=== PATIENT | male | born 1940 | race Caucasian/White ===

== ENCOUNTER 2017-06-23 18:01 | Inpatient (IN) | payer MEDICARE, OTHER ==
[2017-06-23] MEDS ORDERED: methylPREDNISolone Sodium Succinate 125 MG/2 ML SDV IVPUSH ONE (18:08)
[2017-06-23] MEDS ORDERED: Albuterol/Ipratropium 3.0-0.5 MG/3 ML Neb Soln NEB ONE (18:09)
[2017-06-23] MEDS ORDERED: Docusate Sodium 100 MG Cap PO PRN (19:24)
[2017-06-23] MEDS ORDERED: Albuterol/Ipratropium 3.0-0.5 MG/3 ML Neb Soln INH PRN (19:24)
--- NOTE | 2017-06-23 19:30 | EDM.PDOC ---
ED HPI GENERAL MEDICAL PROBLEM - General Chief Complaint: Respiratory Problem Stated Complaint: SOB Time Seen by Provider: 06/23/17 18:01 Source of Information: Reports: Patient, Family History Limitations: Reports: Respiratory Distress - History of Present Illness INITIAL COMMENTS - FREE TEXT/NARRATIVE: 77 y.o.w.m with copd, on 2 liters home O2, came with his for worsening of SOB and fllu like symptoms. Pt is able to talk 4 wars sentences, no F/C no N/V. Pt has chronic low back pain or which he is scheduled for surgery next week. BP 97/41 Pulse ox 92% on 2 liters O2 Temp 36.6 pulse 109 RR RR 18 Onset Date: 06/09/17 Onset Time: 07:00 Duration: Day(s):, Getting Worse, Intermittent Location: Reports: Chest Severity: Moderate Improves with: Reports: Medication Worsens with: Reports: Movement Context: Reports: Other (COPD endstage) Associated Symptoms: Reports: Shortness of Breath Lower Back Pain Score (Numeric/FACES): 5 - Related Data Allergies Allergy/AdvReac Type Severity Reaction Status Date / Time Penicillins Allergy Rash Verified 06/23/17 19:21 Home Meds: Home Meds Albuterol/Ipratropium [DuoNeb 3.0-0.5 MG/3 ML] 3 ml INH QID 03/25/16 [History] Albuterol/Ipratropium [DuoNeb 3.0-0.5 MG/3 ML] 3 ml INH QIDRT neb 03/27/16 [Rx] Losartan [Cozaar] 100 mg PO DAILY tablet 03/27/16 [Rx] Nicotine [Habitrol] 21 mg TRDERM Q24H patch 03/27/16 [Rx] Simvastatin [Zocor] 10 mg PO DAILY tablet 03/27/16 [Rx] Hydrocodone/Acetaminophen [Hydrocodon-Acetaminophen 5-325] 1 tab PO BID [History] traZODone HCl [Trazodone HCl] 50 mg PO BEDTIME 06/23/17 [History] Ibuprofen [Advil] 400 mg PO BID 06/24/17 [History] Past Medical History HEENT History: Reports: Other (See Below) Other HEENT History: wears glasses Cardiovascular History: Reports: High Cholesterol, Hypertension Gastrointestinal History: Reports: GERD Musculoskeletal History: Reports: Osteoarthritis, Other (See Below) Other Musculoskeletal History: broke 2 vertebrae in neck 1988; fall muscle tear and strain left leg Other Neuro History: hx of ataxia Hematologic History: Reports: Anemia - Infectious Disease History Infectious Disease History: Reports: Chicken Pox, Measles, Mumps, Rheumatic Fever, Rubella - Past Surgical History GI Surgical History: Reports: Colonoscopy, EGD, Hernia, Inguinal Social & Family History - Family History Family Medical History: Noncontributory - Tobacco Use Smoking Status *Q: Current Every Day Smoker Years of Tobacco use: 58 Packs/Tins Daily: 0.5 - Caffeine Use Caffeine Use: Reports: None - Alcohol Use Days Per Week of Alcohol Use: 7 Number of Drinks Per Day: 2 Total Drinks Per Week: 14 - Recreational Drug Use Recreational Drug Use: No ED ROS GENERAL - Review of Systems Review Of Systems: See Below Constitutional: Reports: No Symptoms HEENT: Reports: No Symptoms Respiratory: Reports: No Symptoms Cardiovascular: Reports: No Symptoms Endocrine: Reports: No Symptoms GI/Abdominal: Reports: No Symptoms : Reports: No Symptoms Musculoskeletal: Reports: No Symptoms Skin: Reports: No Symptoms Neurological: Reports: No Symptoms Psychiatric: Reports: No Symptoms Hematologic/Lymphatic: Reports: No Symptoms Immunologic: Reports: No Symptoms ED EXAM, GENERAL - Physical Exam Exam: See Below Exam Limited By: Respiratory Distress General Appearance: Alert, Moderate Distress, Cachetic Eye Exam: Bilateral Eye: Normal Inspection Ears: Normal External Exam Ear Exam: Bilateral Ear: Auricle Normal Nose: Normal Inspection, Normal Mucosa Throat/Mouth: Normal Inspection, Normal Lips Head: Atraumatic, Normocephalic Neck: Normal Inspection, Supple, Non-Tender Respiratory/Chest: Respiratory Distress, Decreased Breath Sounds, Wheezing, Prolonged Expiration Cardiovascular: Normal Peripheral Pulses, Regular Rate, Rhythm, No Edema Peripheral Pulses: 1+: Carotid (R) GI/Abdominal: Normal Bowel Sounds, Soft, Non-Tender (Male) Exam: Deferred Rectal (Males) Exam: Deferred Back Exam: Normal Inspection, Full Range of Motion Extremities: Normal Inspection, Normal Range of Motion, Non-Tender, No Pedal Edema Neurological: Alert, Oriented, CN II-XII Intact, Normal Cognition, Normal Gait Psychiatric: Normal Affect, Normal Mood Skin Exam: Warm, Dry, Intact, Normal Color, No Rash Lymphatic: No Adenopathy Course - Vital Signs Text/Narrative:: 77 y.o.w.m with copd, smoker-on 2 liters home O2, came with his for worsening of SOB and fllu like symptoms. Pt is able to talk 4 wars sentences, no F/C no N/V. Pt has chronic low back pain or which he is scheduled for surgery next week. BP 97/41 Pulse ox 92% on 2 liters O2 Temp 36.6 pulse 109 RR RR 18 PE: cachectic 77 y.o.w.m in resp distress Imaging: Severe COPD, no acute infiltrate. Labs, WBC 8.3 HCG/HCT nl GFT 58 Troponin 0.017 Impression: COPD exacerbation Tx: Duoneb, Solu medrol, Reexam: Improved Consultation: Dr. Beal: accepted the pt for admission to [facility] no tele. Plan: admit to [facility] Last Recorded V/S: Last Vital Signs Temp 36.4 C 06/24/17 07:59 Pulse 95 06/24/17 07:59 Resp 18 06/24/17 07:59 BP 107/56 L 06/24/17 07:59 Pulse Ox 93 L 06/24/17 07:59 - Orders/Labs/Meds Orders: Active Orders 24 hr Category Date Time Status Patient Status [ADT] Routine ADT 06/23/17 19:25 Active Oxygen Therapy [RC] PRN Care 06/23/17 19:25 Active Up With Assistance [RC] ASDIRECTED Care 06/23/17 19:24 Active Vital Signs [RC] Q4H Care 06/23/17 19:25 Active Chest 1V Frontal [CR] Stat Exams 06/23/17 18:08 Taken Albuterol/Ipratropium [DuoNeb 3.0-0.5 MG/3 ML] Med 06/23/17 19:24 Active 3 ml INH ONETIME PRN Docusate Sodium [Colace] Med 06/23/17 19:24 Active 100 mg PO BID PRN Resuscitation Status Routine Resus Stat 06/23/17 19:24 Ordered Medication Orders Hydrocodone Bitart/Acetaminophen ([place] 325-5 Mg) 1 tab PO BID COUNTS INCLUDE 234 BEDS AT THE [facility] Last Admin: 06/24/17 08:13 Dose: 1 tab Admin: 06/23/17 22:47 Dose: 1 tab Albuterol (Proventil Neb Soln) 2.5 mg NEB Q2H PRN PRN Reason: Dyspnea Last Admin: 06/24/17 10:43 Dose: 2.5 mg Admin: 06/24/17 04:19 Dose: 2.5 mg Albuterol/Ipratropium (Duoneb 3.0-0.5 Mg/3 Ml) 3 ml INH ONETIME PRN PRN Reason: Shortness Of Breath/wheezing Albuterol/Ipratropium (Duoneb 3.0-0.5 Mg/3 Ml) 3 ml INH QIDRT COUNTS INCLUDE 234 BEDS AT THE [facility] Last Admin: 06/24/17 07:30 Dose: Admin: 06/23/17 22:46 Dose: 3 ml Docusate Sodium (Colace) 100 mg PO BID PRN PRN Reason: Constipation Azithromycin 500 mg/ Sodium (Chloride) 250 mls @ 250 mls/hr IV Q24H COUNTS INCLUDE 234 BEDS AT THE [facility] Last Admin: 06/24/17 09:14 Dose: 250 mls/hr Losartan Potassium (Cozaar) 100 mg PO DAILY COUNTS INCLUDE 234 BEDS AT THE [facility] Methylprednisolone Sodium Succinate (Solu-Medrol) 125 mg IVPUSH Q8H COUNTS INCLUDE 234 BEDS AT THE [facility] Last Admin: 06/24/17 09:09 Dose: 125 mg Nicotine (Habitrol) 21 mg TRDERM Q24H COUNTS INCLUDE 234 BEDS AT THE [facility] Simvastatin (Zocor) 10 mg PO DAILY COUNTS INCLUDE 234 BEDS AT THE [facility] Sodium Chloride (Saline Flush) 10 ml FLUSH ASDIRECTED PRN PRN Reason: Keep Vein Open Trazodone HCl (Trazodone) 50 mg PO BEDTIME COUNTS INCLUDE 234 BEDS AT THE [facility] Last Admin: 06/23/17 22:47 Dose: 50 mg Labs: Laboratory Tests 06/23/17 06/23/17 06/23/17 Range/Units 18:49 18:49 18:49 WBC 11.3 (4.5-12.0) X10-3/uL RBC 3.72 L (4.30-5.75) x10(6)uL Hgb 11.7 D (11.5-15.5) g/dL Hct 34.4 (30.0-51.3) % MCV 92.5 (80-96) fL MCH 31.4 (27.7-33.6) pg MCHC 33.9 (32.2-35.4) g/dL RDW 15.4 (11.5-15.5) % Plt Count 281 (125-369) X10(3)uL MPV 7.0 L (7.4-10.4) fL Add Manual Diff Yes Neutrophils % (Manual) 80 (46-82) % Band Neutrophils % 2 (0-6) % Lymphocytes % (Manual) 13 (13-37) % Monocytes % (Manual) 4 (4-12) % Eosinophils % (Manual) 1 (0-5) % PT 10.3 (8.7-11.1) INR 1.02 (0.89-1.13) Sodium 139 (135-145) mmol/L Potassium 4.0 (3.5-5.3) mmol/L Chloride 100 (100-110) mmol/L Carbon Dioxide 31 (21-32) mmol/L BUN 24 H (7-18) mg/dL Creatinine 1.2 (0.70-1.30) mg/dL Est Cr Clr Drug Dosing TNP Estimated GFR (MDRD) 59 L (>60) BUN/Creatinine Ratio 20.0 (9-20) Glucose 148 H (80-116) mg/dL Calcium 9.9 (8.6-10.2) mg/dL Troponin I (<0.017-0.056) ng/mL 06/23/17 Range/Units 18:49 WBC (4.5-12.0) X10-3/uL RBC (4.30-5.75) x10(6)uL Hgb (11.5-15.5) g/dL Hct (30.0-51.3) % MCV (80-96) fL MCH (27.7-33.6) pg MCHC (32.2-35.4) g/dL RDW (11.5-15.5) % Plt Count (125-369) X10(3)uL MPV (7.4-10.4) fL Add Manual Diff Neutrophils % (Manual) (46-82) % Band Neutrophils % (0-6) % Lymphocytes % (Manual) (13-37) % Monocytes % (Manual) (4-12) % Eosinophils % (Manual) (0-5) % PT (8.7-11.1) INR (0.89-1.13) Sodium (135-145) mmol/L Potassium (3.5-5.3) mmol/L Chloride (100-110) mmol/L Carbon Dioxide (21-32) mmol/L BUN (7-18) mg/dL Creatinine (0.70-1.30) mg/dL Est Cr Clr Drug Dosing Estimated GFR (MDRD) (>60) BUN/Creatinine Ratio (9-20) Glucose (80-116) mg/dL Calcium (8.6-10.2) mg/dL Troponin I < 0.017 L (<0.017-0.056) ng/mL Meds: Medications Generic Name Dose Route Start Last Admin Trade Name Freq PRN Reason Stop Dose Admin Hydrocodone Bitart/Acetaminophen 1 tab 06/23/17 22:45 06/24/17 08:13 [place] 325-5 Mg PO 1 tab BID ANDREI Administration Albuterol 2.5 mg 06/23/17 22:22 06/24/17 10:43 Proventil Neb Soln NEB 2.5 mg Q2H PRN Administration Dyspnea Albuterol/Ipratropium 3 ml 06/23/17 19:24 Duoneb 3.0-0.5 Mg/3 Ml INH ONETIME PRN Shortness Of Breath/wheezing Albuterol/Ipratropium 3 ml 06/23/17 22:45 06/24/17 07:30 Duoneb 3.0-0.5 Mg/3 Ml INH Not Given QIDRT ANDREI Docusate Sodium 100 mg 06/23/17 19:24 Colace PO BID PRN Constipation Azithromycin 500 mg/ Sodium 250 mls @ 250 mls/hr 06/24/17 09:00 06/24/17 09: 14 Chloride IV 250 mls/hr Q24H ANDREI Administration Losartan Potassium 100 mg 06/24/17 09:00 Cozaar PO DAILY ANDREI Methylprednisolone Sodium Succinate 125 mg 06/24/17 09:00 06/24/17 09:09 Solu-Medrol IVPUSH 125 mg Q8H ANDREI Administration Nicotine 21 mg 06/24/17 12:00 Habitrol TRDERM Q24H ANDREI Simvastatin 10 mg 06/24/17 09:00 Zocor PO DAILY ANDREI Sodium Chloride 10 ml 06/24/17 10:30 Saline Flush FLUSH ASDIRECTED PRN Keep Vein Open Trazodone HCl 50 mg 06/23/17 22:45 06/23/17 22:47 Trazodone PO 50 mg BEDTIME ANDREI Administration Discontinued Medications Generic Name Dose Route Start Last Admin Trade Name Freq PRN Reason Stop Dose Admin Hydrocodone Bitart/Acetaminophen 1 tab 06/24/17 09:00 [place] 325-5 Mg PO BID ANDREI Albuterol/Ipratropium 3 ml 06/23/17 18:09 06/23/17 18:23 Duoneb 3.0-0.5 Mg/3 Ml NEB 06/23/17 18:10 3 ml ONETIME ONE Administration Albuterol/Ipratropium 3 ml 06/24/17 09:00 Duoneb 3.0-0.5 Mg/3 Ml INH QID ANDREI Methylprednisolone Sodium Succinate 125 mg 06/23/17 18:08 06/23/17 18:23 Solu-Medrol IVPUSH 06/23/17 18:09 125 mg ONETIME ONE Administration Nicotine 21 mg 06/23/17 22:30 Habitrol TRDERM Q24H ANDREI Trazodone HCl 50 mg 06/24/17 21:00 Trazodone PO BEDTIME ANDREI Departure - Departure Time of Disposition: 20:00 Disposition: Refer to Observation Condition: Fair Clinical Impression: COPD with exacerbation - Discharge Information - My Orders Last 24 Hours: My Active Orders 06/23/17 18:08 Chest 1V Frontal [CR] Stat 06/23/17 19:24 Up With Assistance [RC] ASDIRECTED Albuterol/Ipratropium [DuoNeb 3.0-0.5 MG/3 ML] 3 ml INH ONETIME PRN Docusate Sodium [Colace] 100 mg PO BID PRN Resuscitation Status Routine 06/23/17 19:25 Patient Status [ADT] Routine Oxygen Therapy [RC] PRN Vital Signs [RC] Q4H - Assessment/Plan Last 24 Hours: My Active Orders 06/23/17 18:08 Chest 1V Frontal [CR] Stat 06/23/17 19:24 Up With Assistance [RC] ASDIRECTED Albuterol/Ipratropium [DuoNeb 3.0-0.5 MG/3 ML] 3 ml INH ONETIME PRN Docusate Sodium [Colace] 100 mg PO BID PRN Resuscitation Status Routine 06/23/17 19:25 Patient Status [ADT] Routine Oxygen Therapy [RC] PRN Vital Signs [RC] Q4H
[2017-06-23] MEDS ORDERED: Nicotine 21 MG/24 Hr Patch TRDERM SCH (22:30)
[2017-06-23] MEDS: Albuterol/Ipratropium 3.0-0.5 MG/3 ML Neb Soln INH SCH (22:46)
[2017-06-23] MEDS: Acetaminophen/HYDROcodone 325-5 MG Tab PO SCH (22:47)
[2017-06-23] MEDS: traZODone 50 MG Tab PO SCH (22:47)
[2017-06-24] MEDS: Albuterol 0.083% 2.5 MG/3 ML Neb Soln NEB PRN ×3 (04:19→14:47)
[2017-06-24] MEDS: Albuterol/Ipratropium 3.0-0.5 MG/3 ML Neb Soln INH SCH ×4 (07:30→20:15)
[2017-06-24] MEDS: Acetaminophen/HYDROcodone 325-5 MG Tab PO SCH ×2 (08:13→16:38)
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
[2017-06-24] MEDS ORDERED: Acetaminophen/HYDROcodone 325-5 MG Tab PO SCH (09:00)
[2017-06-24] MEDS ORDERED: Albuterol/Ipratropium 3.0-0.5 MG/3 ML Neb Soln INH SCH (09:00)
[2017-06-24] MEDS: methylPREDNISolone Sodium Succinate 125 MG/2 ML SDV IVPUSH SCH ×2 (09:09→16:40)
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
[2017-06-24] MEDS ORDERED: Iopamidol 755 Mg/ML 75 ML Bottle IV ONE (11:55)
[2017-06-24] MEDS ORDERED: Nicotine 21 MG/24 Hr Patch *PTOM TRDERM SCH (12:00)
[2017-06-24] MEDS: Losartan 100 MG Tab PO SCH (13:42)
[2017-06-24] MEDS: Simvastatin 10 MG Tab PO SCH (13:43)
--- NOTE | 2017-06-24 13:45 | CT ---
INDICATION: COPD. CT CHEST WITH CONTRAST: Spiral 2.5 mm axial sections were obtained through the chest with 75 mL Isovue 370 at 2 mL/second, with sagittal and coronal reconstructions, 06/24/2017. Comparison chest x-ray was noted. Total exam DLP = 166.48 mGy-cm. A definite active infiltrate or effusion was not identified. There are a few areas of subpleural density, likely representing fibrotic changes. The most prominent of these, however, was in the left upper lobe on axial images #22 through #29. Again, this most likely represents fibrotic change; however, a small area of infection with even an abscess formation cannot be entirely excluded with this appearance. Followup study may be warranted, therefore, depending upon clinical correlation. Central lobular emphysematous changes are likely. No definite mass lesions were seen in the lungs or pleural spaces. The heart appears enlarged with coronary artery calcifications. The aorta is calcified. Brachiocephalic vessels were also calcified. Mediastinal lymphadenopathy is mild and nonspecific. No mediastinal masses were identified. No pericardial effusion was seen. There appears to be postsurgical change at the liver - right kidney. A simple appearing cyst is noted off the mid pole posterolateral cortex - almost entirely exophytic - of the left kidney. It measured approximately 27 mm. The common bile duct did not appear grossly enlarged. The pancreatic duct was slightly prominent. IMPRESSION: 1. Probable emphysematous changes with some minimal scarring. Followup CT of the chest is recommended in 3-6 months to confirm stability of the changes in the lungs, likely fibrotic in nature. 2. ASHD/ASD. 3. Simple appearing left renal cyst. MTDD
[2017-06-24] MEDS: Sodium Chloride 0.9% 10 ML Syringe FLUSH PRN ×2 (14:42→16:40)
[2017-06-24] MEDS ORDERED: IBUPROFEN 200 MG PO SCH (18:15)
[2017-06-24] MEDS: traZODone 50 MG Tab PO SCH (20:18)
[2017-06-24] MEDS ORDERED: traZODone 50 MG Tab PO SCH (21:00)
[2017-06-25] MEDS: Sodium Chloride 0.9% 10 ML Syringe FLUSH PRN ×5 (01:04→17:41)
[2017-06-25] MEDS: methylPREDNISolone Sodium Succinate 125 MG/2 ML SDV IVPUSH SCH ×3 (01:04→17:41)
[2017-06-25] MEDS: Albuterol/Ipratropium 3.0-0.5 MG/3 ML Neb Soln INH SCH ×4 (07:09→21:00)
[2017-06-25] MEDS: Acetaminophen/HYDROcodone 325-5 MG Tab PO SCH ×2 (08:09→17:08)
--- NOTE | 2017-06-25 09:16 | PCM.PN ---
- General Info Date of Service: 06/25/17 Subjective Update: Patient complains that he still feels weak and coughing sputum. He still has wheezing and needing 2 L of oxygen continuously which is up from his home baseline. He was expressing interest to quit smoking completely. His CAT scan showed mostly fibrotic changes no new pneumonia or malignancy. Functional Status: Reports: Pain Controlled, Ambulating - Review of Systems General: Reports: Weakness, Fatigue Pulmonary: Reports: Shortness of Breath, Cough, Wheezing Cardiovascular: Reports: No Symptoms Gastrointestinal: Reports: No Symptoms Genitourinary: Reports: No Symptoms - Patient Data Vitals - Most Recent: Last Vital Signs Temp 97.6 F 06/25/17 04:00 Pulse 80 06/25/17 07:28 Resp 24 H 06/25/17 04:00 BP 105/49 L 06/25/17 04:00 Pulse Ox 92 L 06/25/17 07:28 Weight - Most Recent: 53.206 kg I&O - Last 24 Hours: Intake & Output 06/24/17 06/25/17 06/25/17 22:59 06:59 14:59 Intake Total 400 Balance 400 Lab Results Last 24 Hours: Laboratory Results - last 24 hr 06/25/17 06/25/17 Range/Units 06:15 06:15 WBC 14.5 H (4.5-12.0) X10-3/uL RBC 3.74 L (4.30-5.75) x10(6)uL Hgb 12.0 (11.5-15.5) g/dL Hct 34.6 (30.0-51.3) % MCV 92.4 (80-96) fL MCH 32.0 (27.7-33.6) pg MCHC 34.6 (32.2-35.4) g/dL RDW 14.6 (11.5-15.5) % Plt Count 273 (125-369) X10(3)uL MPV 7.6 (7.4-10.4) fL Add Manual Diff Yes Neutrophils % (Manual) 91 H (46-82) % Band Neutrophils % 4 (0-6) % Lymphocytes % (Manual) 4 L (13-37) % Monocytes % (Manual) 1 L (4-12) % Sodium 139 (135-145) mmol/L Potassium 4.5 (3.5-5.3) mmol/L Chloride 101 (100-110) mmol/L Carbon Dioxide 33 H (21-32) mmol/L BUN 27 H (7-18) mg/dL Creatinine 0.9 (0.70-1.30) mg/dL Est Cr Clr Drug Dosing 50.91 mL/min Estimated GFR (MDRD) > 60 (>60) BUN/Creatinine Ratio 30.0 H (9-20) Glucose 143 H (80-116) mg/dL Calcium 9.2 (8.6-10.2) mg/dL Med Orders - Current: Current Medications Hydrocodone Bitart/Acetaminophen ([place] 325-5 Mg) 1 tab PO BID@0900,1700 [facility] Last Admin: 06/25/17 08:09 Dose: 1 tab Albuterol (Proventil Neb Soln) 2.5 mg NEB Q2H PRN PRN Reason: Dyspnea Last Admin: 06/24/17 14:47 Dose: 2.5 mg Albuterol/Ipratropium (Duoneb 3.0-0.5 Mg/3 Ml) 3 ml INH ONETIME PRN PRN Reason: Shortness Of Breath/wheezing Albuterol/Ipratropium (Duoneb 3.0-0.5 Mg/3 Ml) 3 ml INH QIDRT [facility] Last Admin: 06/25/17 07:09 Dose: 3 ml Docusate Sodium (Colace) 100 mg PO BID PRN PRN Reason: Constipation Azithromycin 500 mg/ Sodium (Chloride) 250 mls @ 250 mls/hr IV Q24H [facility] Ibuprofen (Motrin) 400 mg PO BID@1000,1800 [facility] Losartan Potassium (Cozaar) 100 mg PO DAILY [facility] Last Admin: 06/24/17 13:42 Dose: Not Given Methylprednisolone Sodium Succinate (Solu-Medrol) 125 mg IVPUSH Q8H [facility] Last Admin: 06/25/17 01:04 Dose: 125 mg Nicotine (Habitrol) 21 mg TRDERM Q24H [facility] Simvastatin (Zocor) 10 mg PO DAILY [facility] Last Admin: 06/24/17 13:43 Dose: Not Given Sodium Chloride (Saline Flush) 10 ml FLUSH ASDIRECTED PRN PRN Reason: Keep Vein Open Last Admin: 06/25/17 07:46 Dose: 10 ml Trazodone HCl (Trazodone) 50 mg PO BEDTIME [facility] Last Admin: 06/24/17 20:18 Dose: 50 mg Discontinued Medications Hydrocodone Bitart/Acetaminophen ([place] 325-5 Mg) 1 tab PO BID [facility] Hydrocodone Bitart/Acetaminophen ([place] 325-5 Mg) 1 tab PO BID [facility] Last Admin: 06/24/17 08:13 Dose: 1 tab Albuterol/Ipratropium (Duoneb 3.0-0.5 Mg/3 Ml) 3 ml NEB ONETIME ONE Stop: 06/23/17 18:10 Last Admin: 06/23/17 18:23 Dose: 3 ml Albuterol/Ipratropium (Duoneb 3.0-0.5 Mg/3 Ml) 3 ml INH QID [facility] Azithromycin 500 mg/ Sodium (Chloride) 250 mls @ 250 mls/hr IV Q24H [facility] Last Admin: 06/24/17 09:14 Dose: 250 mls/hr Ibuprofen (Motrin) 400 mg PO BID@1000,1800 [facility] Last Admin: 06/24/17 18:49 Dose: 400 mg Iopamidol (Isovue-370 (76%)) 75 ml IV ONETIME ONE Stop: 06/24/17 11:56 Last Admin: 06/24/17 12:03 Dose: 75 ml Methylprednisolone Sodium Succinate (Solu-Medrol) 125 mg IVPUSH ONETIME ONE Stop: 06/23/17 18:09 Last Admin: 06/23/17 18:23 Dose: 125 mg Nicotine (Habitrol) 21 mg TRDERM Q24H [facility] Last Admin: 06/24/17 14:24 Dose: Not Given Nicotine (Habitrol) 21 mg TRDERM Q24H [facility] Last Admin: 06/24/17 14:41 Dose: 21 mg Trazodone HCl (Trazodone) 50 mg PO BEDTIME [facility] - Exam Quality Assessment: Supplemental Oxygen General: Alert, Cooperative, Mild Distress HEENT: Pupils Equal, Pupils Reactive, EOMI, Mucous Membr. Moist/[place] Neck: Supple Lungs: Clear to Auscultation, Normal Respiratory Effort, Crackles Cardiovascular: Regular Rate - Problem List & Annotations (1) COPD (chronic obstructive pulmonary disease) SNOMED Code(s): 37411487 Code(s): J44.9 - CHRONIC OBSTRUCTIVE PULMONARY DISEASE, UNSPECIFIED Status : Acute Current Visit: Yes Qualifiers: COPD type: emphysema Emphysema type: unspecified Qualified Code(s): J43.9 - Emphysema, unspecified (2) Tobacco abuse SNOMED Code(s): 354264234 Code(s): Z72.0 - TOBACCO USE Status: Acute Current Visit: Yes (3) HLD (hyperlipidemia) SNOMED Code(s): 81327694 Code(s): E78.5 - HYPERLIPIDEMIA, UNSPECIFIED Status: Acute Current Visit : Yes Qualifiers: Hyperlipidemia type: other hyperlipidemia Qualified Code(s): E78.4 - Other hyperlipidemia (4) Scoliosis Status: Acute Current Visit: Yes Qualifiers: Scoliosis type: idiopathic - Problem List Review Problem List Initiated/Reviewed/Updated: Yes - My Orders Last 24 Hours: My Active Orders 06/24/17 09:00 methylPREDNISolone Sod Succ [Solu-MEDROL] 125 mg IVPUSH Q8H 06/24/17 10:30 Sodium Chloride 0.9% [Saline Flush] 10 ml FLUSH ASDIRECTED PRN 06/25/17 09:00 Azithromycin [Zithromax] 500 mg Sodium Chloride 0.9% [Normal Saline] 250 ml IV Q24H 06/25/17 09:09 CULTURE SPUTUM + SMEAR [RM] Routine TROPONIN I [CHEM] Routine 06/25/17 09:10 Patient Status Manage Transfer [TRANSFER] Routine 06/25/17 10:00 Ibuprofen [Motrin] 400 mg PO BID@1000,1800 06/26/17 05:11 BASIC METABOLIC PANEL,BMP [CHEM] AM CBC WITH AUTO DIFF [HEME] AM PRO B-TYPE NATRIUR PEPT,BNPPRO [CHEM] DAILY 06/27/17 05:11 PRO B-TYPE NATRIUR PEPT,BNPPRO [CHEM] DAILY - Plan Plan:: We'll continue with Solu-Medrol SVNs, and I recommended chest physiotherapy. I' ll change him to inpatient because he still needs IV Solu-Medrol, and I don't seem going home today. He has lumbar surgery coming up on Friday, which I feel he'll be a poor candidate given his recent exacerbation of COPD. Will call up there and cancel. I will also start him on Chantix for tobacco abuse.
[2017-06-25] MEDS: Azithromycin 500 MG in Sodium Chloride 0.9% 250 ML IV SCH (09:27)
[2017-06-25] MEDS: Simvastatin 10 MG Tab PO SCH (10:17)
[2017-06-25] MEDS: Losartan 100 MG Tab PO SCH (10:17)
[2017-06-25] MEDS: Ibuprofen 400 MG Tab PO SCH ×2 (10:18→17:09)
[2017-06-25] MEDS: Nicotine 21 MG/24 Hr Patch TRDERM SCH (12:56)
[2017-06-25] MEDS: traZODone 50 MG Tab PO SCH (21:00)
[2017-06-26] MEDS: Sodium Chloride 0.9% 10 ML Syringe FLUSH PRN ×4 (00:41→17:06)
[2017-06-26] MEDS: methylPREDNISolone Sodium Succinate 125 MG/2 ML SDV IVPUSH SCH ×3 (00:41→17:00)
[2017-06-26] MEDS: Albuterol/Ipratropium 3.0-0.5 MG/3 ML Neb Soln INH SCH ×4 (07:16→21:26)
[2017-06-26] MEDS: Acetaminophen/HYDROcodone 325-5 MG Tab PO SCH ×3 (07:36→17:51)
--- NOTE | 2017-06-26 09:02 | PCM.PN ---
- General Info Date of Service: 06/26/17 Subjective Update: Patient had an episode of shortness of breath chest pain last night. EKG and troponin were negative. He continues complain of shortness of breath difficulty breathing. He also has generalized pain including the neck and low back. In fact he was supposed to low back surgery better this week. Furthermore he complains of decreased appetite low mood and dysthymia. - Review of Systems Genitourinary: Reports: No Symptoms Neurological: Reports: No Symptoms - Patient Data Vitals - Most Recent: Last Vital Signs Temp 97.6 F 06/26/17 04:00 Pulse 77 06/26/17 04:00 Resp 24 H 06/26/17 04:00 BP 125/71 06/26/17 04:00 Pulse Ox 94 L 06/26/17 07:17 Weight - Most Recent: 53.206 kg Lab Results Last 24 Hours: Laboratory Results - last 24 hr 06/25/17 06/25/17 06/26/17 Range/Units 14:20 15:20 05:50 WBC 13.6 H (4.5-12.0) X10-3/uL RBC 3.74 L (4.30-5.75) x10(6)uL Hgb 11.6 (11.5-15.5) g/dL Hct 34.6 (30.0-51.3) % MCV 92.5 (80-96) fL MCH 30.9 (27.7-33.6) pg MCHC 33.4 (32.2-35.4) g/dL RDW 14.8 (11.5-15.5) % Plt Count 298 (125-369) X10(3)uL MPV 7.7 (7.4-10.4) fL Add Manual Diff Yes Neutrophils % (Manual) 90 H (46-82) % Band Neutrophils % 1 (0-6) % Lymphocytes % (Manual) 6 L (13-37) % Monocytes % (Manual) 3 L (4-12) % ABG pH 7.42 (7.35-7.45) ABG pCO2 46 H (35-45) mmHg ABG pO2 55 L (83-108) mmHg ABG HCO3 29 H (22-26) mmol/L ABG O2 Saturation 89 L (96-97) % ABG Base Excess 4.4 H (-2-2) Anatoly Test passed O2 Delivery Device Nasal cannula Sodium (135-145) mmol/L Potassium (3.5-5.3) mmol/L Chloride (100-110) mmol/L Carbon Dioxide (21-32) mmol/L BUN (7-18) mg/dL Creatinine (0.70-1.30) mg/dL Est Cr Clr Drug Dosing mL/min Estimated GFR (MDRD) (>60) BUN/Creatinine Ratio (9-20) Glucose (80-116) mg/dL Calcium (8.6-10.2) mg/dL Troponin I < 0.017 L (<0.017-0.056) ng/mL NT-Pro-B Natriuret Pep (<=450) pg/mL 06/26/17 06/26/17 Range/Units 05:50 05:50 WBC (4.5-12.0) X10-3/uL RBC (4.30-5.75) x10(6)uL Hgb (11.5-15.5) g/dL Hct (30.0-51.3) % MCV (80-96) fL MCH (27.7-33.6) pg MCHC (32.2-35.4) g/dL RDW (11.5-15.5) % Plt Count (125-369) X10(3)uL MPV (7.4-10.4) fL Add Manual Diff Neutrophils % (Manual) (46-82) % Band Neutrophils % (0-6) % Lymphocytes % (Manual) (13-37) % Monocytes % (Manual) (4-12) % ABG pH (7.35-7.45) ABG pCO2 (35-45) mmHg ABG pO2 (83-108) mmHg ABG HCO3 (22-26) mmol/L ABG O2 Saturation (96-97) % ABG Base Excess (-2-2) Anatoly Test O2 Delivery Device Sodium 141 (135-145) mmol/L Potassium 4.5 (3.5-5.3) mmol/L Chloride 102 (100-110) mmol/L Carbon Dioxide 35 H (21-32) mmol/L BUN 33 H (7-18) mg/dL Creatinine 0.9 (0.70-1.30) mg/dL Est Cr Clr Drug Dosing 50.91 mL/min Estimated GFR (MDRD) > 60 (>60) BUN/Creatinine Ratio 36.7 H (9-20) Glucose 135 H (80-116) mg/dL Calcium 9.4 (8.6-10.2) mg/dL Troponin I (<0.017-0.056) ng/mL NT-Pro-B Natriuret Pep 919 H (<=450) pg/mL Deangelo Results Last 24 Hours: Microbiology 06/25/17 11:05 Gram Stain - Final Sputum - Expectorated Sputum Culture - Preliminary Normal Aidee Med Orders - Current: Current Medications Hydrocodone Bitart/Acetaminophen ([place] 325-5 Mg) 1 tab PO BID@0900,1700 COUNTS [facility] 234 BEDS AT [facility] Last Admin: 06/26/17 07:36 Dose: 1 tab Albuterol (Proventil Neb Soln) 2.5 mg NEB Q2H PRN PRN Reason: Dyspnea Last Admin: 06/24/17 14:47 Dose: 2.5 mg Albuterol/Ipratropium (Duoneb 3.0-0.5 Mg/3 Ml) 3 ml INH ONETIME PRN PRN Reason: Shortness Of Breath/wheezing Albuterol/Ipratropium (Duoneb 3.0-0.5 Mg/3 Ml) 3 ml INH QIDRT COUNTS INCLUDE 234 BEDS AT [facility] Last Admin: 06/26/17 07:16 Dose: 3 ml Clonazepam (Klonopin) 0.5 mg PO BID PRN PRN Reason: Anxiety Docusate Sodium (Colace) 100 mg PO BID PRN PRN Reason: Constipation Azithromycin 500 mg/ Sodium (Chloride) 250 mls @ 250 mls/hr IV Q24H COUNTS INCLUDE 234 BEDS AT [facility] Last Admin: 06/25/17 09:27 Dose: 250 mls/hr Losartan Potassium (Cozaar) 100 mg PO DAILY COUNTS INCLUDE 234 BEDS AT [facility] Last Admin: 06/25/17 10:17 Dose: 100 mg Methylprednisolone Sodium Succinate (Solu-Medrol) 125 mg IVPUSH Q8H COUNTS INCLUDE 234 BEDS AT [facility] Last Admin: 06/26/17 00:41 Dose: 125 mg Mirtazapine (Remeron) 15 mg PO BEDTIME COUNTS INCLUDE 234 BEDS AT [facility] Multivitamins/Minerals/Vitamin C (Tab-A-Dana) 1 tab PO DAILY COUNTS INCLUDE 234 BEDS AT [facility] Nicotine (Habitrol) 21 mg TRDERM Q24H COUNTS INCLUDE 234 BEDS AT [facility] Last Admin: 02/28/18 12:56 Dose: 21 mg Simvastatin (Zocor) 10 mg PO DAILY COUNTS INCLUDE 234 BEDS AT [facility] Last Admin: 06/25/17 10:17 Dose: 10 mg Sodium Chloride (Saline Flush) 10 ml FLUSH ASDIRECTED PRN PRN Reason: Keep Vein Open Last Admin: 06/26/17 00:41 Dose: 10 ml Trazodone HCl (Trazodone) 50 mg PO BEDTIME COUNTS INCLUDE 234 BEDS AT [facility] Last Admin: 06/25/17 21:00 Dose: 50 mg Varenicline (Chantix) 0.5 mg PO DAILY COUNTS INCLUDE 234 BEDS AT [facility] Stop: 06/27/17 09:01 Last Admin: 06/25/17 10:17 Dose: 0.5 mg Varenicline (Chantix) 0.5 mg PO BID COUNTS INCLUDE 234 BEDS AT [facility] Stop: 07/01/17 21:01 Varenicline (Chantix) 1 mg PO BID COUNTS INCLUDE 234 BEDS AT [facility] Discontinued Medications Hydrocodone Bitart/Acetaminophen ([place] 325-5 Mg) 1 tab PO BID COUNTS INCLUDE 234 BEDS AT [facility] Hydrocodone Bitart/Acetaminophen ([place] 325-5 Mg) 1 tab PO BID COUNTS INCLUDE 234 BEDS AT [facility] Last Admin: 06/24/17 08:13 Dose: 1 tab Albuterol/Ipratropium (Duoneb 3.0-0.5 Mg/3 Ml) 3 ml NEB ONETIME ONE Stop: 06/23/17 18:10 Last Admin: 06/23/17 18:23 Dose: 3 ml Albuterol/Ipratropium (Duoneb 3.0-0.5 Mg/3 Ml) 3 ml INH QID COUNTS INCLUDE 234 BEDS AT [facility] Azithromycin 500 mg/ Sodium (Chloride) 250 mls @ 250 mls/hr IV Q24H COUNTS INCLUDE 234 BEDS AT [facility] Last Admin: 06/24/17 09:14 Dose: 250 mls/hr Ibuprofen (Motrin) 400 mg PO BID@1000,1800 COUNTS INCLUDE 234 BEDS AT [facility] Last Admin: 06/24/17 18:49 Dose: 400 mg Ibuprofen (Motrin) 400 mg PO BID@1000,1800 COUNTS INCLUDE 234 BEDS AT [facility] Last Admin: 06/25/17 17:09 Dose: 400 mg Iopamidol (Isovue-370 (76%)) 75 ml IV ONETIME ONE Stop: 06/24/17 11:56 Last Admin: 06/24/17 12:03 Dose: 75 ml Methylprednisolone Sodium Succinate (Solu-Medrol) 125 mg IVPUSH ONETIME ONE Stop: 06/23/17 18:09 Last Admin: 06/23/17 18:23 Dose: 125 mg Nicotine (Habitrol) 21 mg TRDERM Q24H COUNTS INCLUDE 234 BEDS AT [facility] Last Admin: 06/24/17 14:24 Dose: Not Given Nicotine (Habitrol) 21 mg TRDERM Q24H COUNTS INCLUDE 234 BEDS AT [facility] Last Admin: 06/24/17 14:41 Dose: 21 mg Trazodone HCl (Trazodone) 50 mg PO BEDTIME [facility] - Exam Quality Assessment: Supplemental Oxygen General: Alert HEENT: Pupils Equal Neck: Supple Lungs: Clear to Auscultation, Decreased Breath Sounds Cardiovascular: Regular Rate Psy/Mental Status: Depressed - Problem List & Annotations (1) COPD (chronic obstructive pulmonary disease) SNOMED Code(s): 29121947 Code(s): J44.9 - CHRONIC OBSTRUCTIVE PULMONARY DISEASE, UNSPECIFIED Status : Acute Current Visit: Yes Qualifiers: COPD type: emphysema Emphysema type: unspecified Qualified Code(s): J43.9 - Emphysema, unspecified (2) Tobacco abuse SNOMED Code(s): 109396334 Code(s): Z72.0 - TOBACCO USE Status: Acute Current Visit: Yes (3) HLD (hyperlipidemia) SNOMED Code(s): 31597566 Code(s): E78.5 - HYPERLIPIDEMIA, UNSPECIFIED Status: Acute Current Visit : Yes Qualifiers: Hyperlipidemia type: other hyperlipidemia Qualified Code(s): E78.4 - Other hyperlipidemia (4) Scoliosis Status: Acute Current Visit: Yes Qualifiers: Scoliosis type: idiopathic (5) Chronic neck and back pain SNOMED Code(s): 84430262 Code(s): M54.2 - CERVICALGIA; M54.9 - DORSALGIA, UNSPECIFIED Status: Acute Current Visit: Yes (6) Dysthymia SNOMED Code(s): 97067586 Code(s): F34.1 - DYSTHYMIC DISORDER Status: Acute Current Visit: Yes (7) Anorexia SNOMED Code(s): 72227203 Code(s): R63.0 - ANOREXIA Status: Acute Current Visit: Yes - Problem List Review Problem List Initiated/Reviewed/Updated: Yes - My Orders Last 24 Hours: My Active Orders 06/25/17 09:00 Varenicline [Chantix] 0.5 mg PO DAILY 06/26/17 08:55 OT Evaluation and Treatment [CONS] Routine PT Evaluation and Treatment [CONS] Routine 06/26/17 08:56 ClonazePAM [KlonoPIN] 0.5 mg PO BID PRN 06/26/17 09:00 Multivitamins [Tab-A-Dana] 1 tab PO DAILY Naproxen [Naprosyn] 500 mg PO Q12HR 06/26/17 21:00 Mirtazapine [Remeron] 15 mg PO BEDTIME 06/27/17 05:11 BASIC METABOLIC PANEL,BMP [CHEM] AM CBC WITH AUTO DIFF [HEME] AM TROPONIN I [CHEM] AM 06/28/17 09:00 Varenicline [Chantix] 0.5 mg PO BID 07/02/17 09:00 Varenicline [Chantix] 1 mg PO BID - Plan Plan:: I think that Robbie has some stress. He agrees that the upcoming surgery has been stressful think about. He does agree that he may be a little sad as well. His appetite is decreased and he has lost 12 pounds in 3 months. In addition with continuation of oxygen supplementation, azithromycin, and SVNs, I will start him on one multivitamin a day, mirtazapine 15 mg orally every night -this would help with depression, appetite,weight gain. I will also start naproxen 500 mg twice a day scheduled,for pain control. Additionally,I have consulted with physical and occupational therapy for this purpose
[2017-06-26] MEDS: Naproxen 500 MG Tab PO SCH ×2 (09:38→21:26)
[2017-06-26] MEDS: Losartan 100 MG Tab PO SCH (09:40)
[2017-06-26] MEDS: Multivitamin Tab PO SCH (09:41)
[2017-06-26] MEDS: ClonazePAM 0.5 MG Tab PO PRN (09:42)
[2017-06-26] MEDS: Azithromycin 500 MG in Sodium Chloride 0.9% 250 ML IV SCH (09:44)
[2017-06-26] MEDS: Simvastatin 10 MG Tab PO SCH (09:58)
[2017-06-26] MEDS: Nicotine 21 MG/24 Hr Patch TRDERM SCH (11:18)
[2017-06-26] MEDS: traZODone 50 MG Tab PO SCH (21:26)
[2017-06-26] MEDS: Mirtazapine 15 MG Tab PO SCH (21:26)
[2017-06-27] MEDS: methylPREDNISolone Sodium Succinate 125 MG/2 ML SDV IVPUSH SCH ×2 (01:38→09:42)
[2017-06-27] MEDS: Sodium Chloride 0.9% 10 ML Syringe FLUSH PRN ×2 (01:39→09:45)
[2017-06-27] MEDS: Albuterol/Ipratropium 3.0-0.5 MG/3 ML Neb Soln INH SCH ×4 (07:16→20:44)
[2017-06-27] MEDS: Acetaminophen/HYDROcodone 325-5 MG Tab PO SCH ×3 (09:41→20:49)
[2017-06-27] MEDS: Naproxen 500 MG Tab PO SCH ×2 (09:42→20:46)
[2017-06-27] MEDS: Simvastatin 10 MG Tab PO SCH (09:42)
[2017-06-27] MEDS: Losartan 100 MG Tab PO SCH (09:42)
[2017-06-27] MEDS: Multivitamin Tab PO SCH (09:42)
--- NOTE | 2017-06-27 10:30 | PCM.PN ---
- General Info Date of Service: 06/27/17 Admission Dx/Problem (Free Text): Patient states he was really short of breath this morning. He states when he walks to the bathroom a short of breath and his oxygen saturation goes to 85%. He has a cough but now he has clear phlegm. He states he normally has clear phlegm at home in the morning when he coughs. He says his backs really hurting him and hydrocodone twice a day doesn't quite cut it. He has no chest pain, fevers, chills or leg swelling. - Patient Data Vitals - Most Recent: Last Vital Signs Temp 97.9 F 06/27/17 04:45 Pulse 88 06/27/17 07:30 Resp 20 06/27/17 04:45 BP 130/81 06/27/17 09:42 Pulse Ox 93 L 06/27/17 07:30 Weight - Most Recent: 117 lb 4.8 oz I&O - Last 24 Hours: Intake & Output 06/26/17 06/27/17 06/27/17 22:59 06:59 14:59 Intake Total 462 Balance 462 Lab Results Last 24 Hours: Laboratory Results - last 24 hr 06/27/17 06/27/17 06/27/17 Range/Units 06:15 06:15 06:15 WBC 10.9 (4.5-12.0) X10-3/uL RBC 3.81 L (4.30-5.75) x10(6)uL Hgb 11.4 L (11.5-15.5) g/dL Hct 35.2 (30.0-51.3) % MCV 92.4 (80-96) fL MCH 29.9 (27.7-33.6) pg MCHC 32.3 (32.2-35.4) g/dL RDW 14.7 (11.5-15.5) % Plt Count 330 (125-369) X10(3)uL MPV 7.3 L (7.4-10.4) fL Add Manual Diff Yes Neutrophils % (Manual) 87 H (46-82) % Lymphocytes % (Manual) 10 L (13-37) % Monocytes % (Manual) 3 L (4-12) % Sodium 142 (135-145) mmol/L Potassium 4.7 (3.5-5.3) mmol/L Chloride 102 (100-110) mmol/L Carbon Dioxide 36 H (21-32) mmol/L BUN 35 H (7-18) mg/dL Creatinine 0.9 (0.70-1.30) mg/dL Est Cr Clr Drug Dosing 50.91 mL/min Estimated GFR (MDRD) > 60 (>60) BUN/Creatinine Ratio 38.9 H (9-20) Glucose 136 H (80-116) mg/dL Calcium 9.5 (8.6-10.2) mg/dL Troponin I < 0.017 L (<0.017-0.056) ng/mL NT-Pro-B Natriuret Pep 935 H (<=450) pg/mL Deangelo Results Last 24 Hours: Microbiology 06/25/17 11:05 Gram Stain - Final Sputum - Expectorated Sputum Culture - Final Normal Aidee Med Orders - Current: Current Medications Albuterol (Proventil Neb Soln) 2.5 mg NEB Q2H PRN PRN Reason: Dyspnea Last Admin: 06/24/17 14:47 Dose: 2.5 mg Albuterol/Ipratropium (Duoneb 3.0-0.5 Mg/3 Ml) 3 ml INH ONETIME PRN PRN Reason: Shortness Of Breath/wheezing Albuterol/Ipratropium (Duoneb 3.0-0.5 Mg/3 Ml) 3 ml INH QIDRT [facility] Last Admin: 06/27/17 07:16 Dose: 3 ml Clonazepam (Klonopin) 0.5 mg PO BID PRN PRN Reason: Anxiety Last Admin: 06/26/17 09:42 Dose: 0.5 mg Docusate Sodium (Colace) 100 mg PO BID PRN PRN Reason: Constipation Losartan Potassium (Cozaar) 100 mg PO DAILY [facility] Last Admin: 06/27/17 09:42 Dose: 100 mg Mirtazapine (Remeron) 15 mg PO BEDTIME [facility] Last Admin: 06/26/17 21:26 Dose: 15 mg Multivitamins/Minerals/Vitamin C (Tab-A-Dana) 1 tab PO DAILY [facility] Last Admin: 06/27/17 09:42 Dose: 1 tab Naproxen (Naprosyn) 500 mg PO Q12H [facility] Last Admin: 06/27/17 09:42 Dose: 500 mg Nicotine (Habitrol) 21 mg TRDERM Q24H [facility] Last Admin: 06/26/17 11:18 Dose: 21 mg Simvastatin (Zocor) 10 mg PO DAILY [facility] Last Admin: 06/27/17 09:42 Dose: 10 mg Sodium Chloride (Saline Flush) 10 ml FLUSH ASDIRECTED PRN PRN Reason: Keep Vein Open Last Admin: 06/27/17 09:45 Dose: 10 ml Trazodone HCl (Trazodone) 50 mg PO BEDTIME [facility] Last Admin: 06/26/17 21:26 Dose: 50 mg Varenicline (Chantix) 0.5 mg PO BID [facility] Stop: 07/01/17 21:01 Varenicline (Chantix) 1 mg PO BID [facility] Discontinued Medications Hydrocodone Bitart/Acetaminophen ([place] 325-5 Mg) 1 tab PO BID [facility] Hydrocodone Bitart/Acetaminophen ([place] 325-5 Mg) 1 tab PO BID [facility] Last Admin: 06/24/17 08:13 Dose: 1 tab Hydrocodone Bitart/Acetaminophen ([place] 325-5 Mg) 1 tab PO BID@0900,1700 [facility] Last Admin: 06/27/17 09:41 Dose: 1 tab Hydrocodone Bitart/Acetaminophen ([place] 325-5 Mg) 1 tab PO BID@0800,1700 [facility] Albuterol/Ipratropium (Duoneb 3.0-0.5 Mg/3 Ml) 3 ml NEB ONETIME ONE Stop: 06/23/17 18:10 Last Admin: 06/23/17 18:23 Dose: 3 ml Albuterol/Ipratropium (Duoneb 3.0-0.5 Mg/3 Ml) 3 ml INH QID [facility] Azithromycin 500 mg/ Sodium (Chloride) 250 mls @ 250 mls/hr IV Q24H [facility] Last Admin: 06/24/17 09:14 Dose: 250 mls/hr Azithromycin 500 mg/ Sodium (Chloride) 250 mls @ 250 mls/hr IV Q24H [facility] Last Admin: 06/26/17 09:44 Dose: 250 mls/hr Ibuprofen (Motrin) 400 mg PO BID@1000,1800 [facility] Last Admin: 06/24/17 18:49 Dose: 400 mg Ibuprofen (Motrin) 400 mg PO BID@1000,1800 [facility] Last Admin: 06/25/17 17:09 Dose: 400 mg Iopamidol (Isovue-370 (76%)) 75 ml IV ONETIME ONE Stop: 06/24/17 11:56 Last Admin: 06/24/17 12:03 Dose: 75 ml Methylprednisolone Sodium Succinate (Solu-Medrol) 125 mg IVPUSH ONETIME ONE Stop: 06/23/17 18:09 Last Admin: 06/23/17 18:23 Dose: 125 mg Methylprednisolone Sodium Succinate (Solu-Medrol) 125 mg IVPUSH Q8H [facility] Last Admin: 06/27/17 09:42 Dose: 125 mg Nicotine (Habitrol) 21 mg TRDERM Q24H [facility] Last Admin: 06/24/17 14:24 Dose: Not Given Nicotine (Habitrol) 21 mg TRDERM Q24H [facility] Last Admin: 06/24/17 14:41 Dose: 21 mg Trazodone HCl (Trazodone) 50 mg PO BEDTIME [facility] Varenicline (Chantix) 0.5 mg PO DAILY [facility] Stop: 06/27/17 09:01 Last Admin: 06/27/17 09:41 Dose: 0.5 mg - Exam General: Alert, Oriented, Cooperative Neck: Supple Lungs: Decreased Breath Sounds, Wheezing (Mild) Cardiovascular: Regular Rate, Regular Rhythm, No Murmurs Extremities: No Pedal Edema - Problem List & Annotations (1) Palliative care patient SNOMED Code(s): 895465971 Code(s): Z51.5 - ENCOUNTER FOR PALLIATIVE CARE Status: Acute Current Visit: Yes (2) Anorexia SNOMED Code(s): 45178785 Code(s): R63.0 - ANOREXIA Status: Acute Current Visit: Yes (3) COPD with exacerbation SNOMED Code(s): 933382160 Code(s): J44.1 - CHRONIC OBSTRUCTIVE PULMONARY DISEASE W (ACUTE) EXACERBATION Status: Acute Current Visit: Yes (4) Tobacco abuse SNOMED Code(s): 413056147 Code(s): Z72.0 - TOBACCO USE Status: Acute Current Visit: Yes - Problem List Review Problem List Initiated/Reviewed/Updated: Yes - My Orders Last 24 Hours: My Active Orders 06/27/17 14:00 Acetaminophen/HYDROcodone [Jackman 325-5 MG] 1 tab PO TID 03/03/18 09:00 methylPREDNISolone Sod Succ [Solu-MEDROL] 125 mg IVPUSH DAILY - Plan Plan:: 1. Change Solu-Medrol to 125 mg IV once a day. 2. Change O2 to keep saturations between 88-92%. 3. Continue PT/OT. 4. Increase hydrocodone to 3 times a day.
[2017-06-27] MEDS: Nicotine 21 MG/24 Hr Patch TRDERM SCH (14:10)
[2017-06-27] MEDS ORDERED: Acetaminophen/HYDROcodone 325-5 MG Tab PO SCH (17:00)
[2017-06-27] MEDS: Mirtazapine 15 MG Tab PO SCH (20:48)
[2017-06-27] MEDS: traZODone 50 MG Tab PO SCH (20:49)
[2017-06-28] MEDS: ClonazePAM 0.5 MG Tab PO PRN (04:21)
[2017-06-28] MEDS: Albuterol/Ipratropium 3.0-0.5 MG/3 ML Neb Soln INH SCH ×4 (07:16→21:10)
--- NOTE | 2017-06-28 08:35 | PCM.PN ---
- General Info Date of Service: 06/28/17 Admission Dx/Problem (Free Text): Patient states his breathing is about the same. He has some cough in the morning. He denies chest pain. He overall says he has no energy. Denies fevers, chills or chest pain. - Patient Data Vitals - Most Recent: Last Vital Signs Temp 95 F L 06/28/17 04:00 Pulse 70 06/28/17 04:00 Resp 20 06/28/17 04:00 BP 116/73 06/28/17 04:00 Pulse Ox 95 06/28/17 04:00 Weight - Most Recent: 117 lb 4.8 oz [place] Results Last 24 Hours: Microbiology 06/25/17 11:05 Gram Stain - Final Sputum - Expectorated Sputum Culture - Final Normal Aidee Med Orders - Current: Current Medications Hydrocodone Bitart/Acetaminophen ([place] 325-5 Mg) 1 tab PO TID [facility] Last Admin: 06/27/17 20:49 Dose: 1 tab Albuterol (Proventil Neb Soln) 2.5 mg NEB Q2H PRN PRN Reason: Dyspnea Last Admin: 06/24/17 14:47 Dose: 2.5 mg Albuterol/Ipratropium (Duoneb 3.0-0.5 Mg/3 Ml) 3 ml INH ONETIME PRN PRN Reason: Shortness Of Breath/wheezing Albuterol/Ipratropium (Duoneb 3.0-0.5 Mg/3 Ml) 3 ml INH QIDRT [facility] Last Admin: 06/28/17 07:16 Dose: 3 ml Clonazepam (Klonopin) 0.5 mg PO BID PRN PRN Reason: Anxiety Last Admin: 06/28/17 04:21 Dose: 0.5 mg Docusate Sodium (Colace) 100 mg PO BID PRN PRN Reason: Constipation Losartan Potassium (Cozaar) 100 mg PO DAILY [facility] Last Admin: 06/27/17 09:42 Dose: 100 mg Mirtazapine (Remeron) 15 mg PO BEDTIME [facility] Last Admin: 06/27/17 20:48 Dose: 15 mg Multivitamins/Minerals/Vitamin C (Tab-A-Dana) 1 tab PO DAILY [facility] Last Admin: 06/27/17 09:42 Dose: 1 tab Naproxen (Naprosyn) 500 mg PO Q12H [facility] Last Admin: 06/27/17 20:46 Dose: 500 mg Nicotine (Habitrol) 21 mg TRDERM Q24H [facility] Last Admin: 06/27/17 14:10 Dose: 21 mg Prednisone (Prednisone) 60 mg PO WITHBREAKFAST [facility] Simvastatin (Zocor) 10 mg PO DAILY [facility] Last Admin: 06/27/17 09:42 Dose: 10 mg Sodium Chloride (Saline Flush) 10 ml FLUSH ASDIRECTED PRN PRN Reason: Keep Vein Open Last Admin: 06/27/17 09:45 Dose: 10 ml Tiotropium [place] (Spiriva Handihaler) 18 mcg INH DAILY [facility] Trazodone HCl (Trazodone) 50 mg PO BEDTIME [facility] Last Admin: 06/27/17 20:49 Dose: 50 mg Varenicline (Chantix) 0.5 mg PO BID [facility] Stop: 07/01/17 21:01 Varenicline (Chantix) 1 mg PO BID [facility] Discontinued Medications Hydrocodone Bitart/Acetaminophen ([place] 325-5 Mg) 1 tab PO BID [facility] Hydrocodone Bitart/Acetaminophen ([place] 325-5 Mg) 1 tab PO BID [facility] Last Admin: 06/24/17 08:13 Dose: 1 tab Hydrocodone Bitart/Acetaminophen ([place] 325-5 Mg) 1 tab PO BID@0900,1700 [facility] Last Admin: 06/27/17 09:41 Dose: 1 tab Hydrocodone Bitart/Acetaminophen ([place] 325-5 Mg) 1 tab PO BID@0800,1700 [facility] Albuterol/Ipratropium (Duoneb 3.0-0.5 Mg/3 Ml) 3 ml NEB ONETIME ONE Stop: 06/23/17 18:10 Last Admin: 06/23/17 18:23 Dose: 3 ml Albuterol/Ipratropium (Duoneb 3.0-0.5 Mg/3 Ml) 3 ml INH QID [facility] Azithromycin 500 mg/ Sodium (Chloride) 250 mls @ 250 mls/hr IV Q24H [facility] Last Admin: 06/24/17 09:14 Dose: 250 mls/hr Azithromycin 500 mg/ Sodium (Chloride) 250 mls @ 250 mls/hr IV Q24H [facility] Last Admin: 06/26/17 09:44 Dose: 250 mls/hr Ibuprofen (Motrin) 400 mg PO BID@1000,1800 [facility] Last Admin: 06/24/17 18:49 Dose: 400 mg Ibuprofen (Motrin) 400 mg PO BID@1000,1800 [facility] Last Admin: 06/25/17 17:09 Dose: 400 mg Iopamidol (Isovue-370 (76%)) 75 ml IV ONETIME ONE Stop: 06/24/17 11:56 Last Admin: 06/24/17 12:03 Dose: 75 ml Methylprednisolone Sodium Succinate (Solu-Medrol) 125 mg IVPUSH ONETIME ONE Stop: 06/23/17 18:09 Last Admin: 06/23/17 18:23 Dose: 125 mg Methylprednisolone Sodium Succinate (Solu-Medrol) 125 mg IVPUSH Q8H [facility] Last Admin: 06/27/17 09:42 Dose: 125 mg Methylprednisolone Sodium Succinate (Solu-Medrol) 125 mg IVPUSH DAILY [facility] Nicotine (Habitrol) 21 mg TRDERM Q24H [facility] Last Admin: 06/24/17 14:24 Dose: Not Given Nicotine (Habitrol) 21 mg TRDERM Q24H [facility] Last Admin: 06/24/17 14:41 Dose: 21 mg Trazodone HCl (Trazodone) 50 mg PO BEDTIME [facility] Varenicline (Chantix) 0.5 mg PO DAILY [facility] Stop: 06/27/17 09:01 Last Admin: 06/27/17 09:41 Dose: 0.5 mg - Exam General: Alert, Oriented, Cooperative Lungs: Decreased Breath Sounds, Wheezing Cardiovascular: Regular Rate, Regular Rhythm, No Murmurs Extremities: No Pedal Edema - Problem List & Annotations (1) Palliative care patient SNOMED Code(s): 389955587 Code(s): Z51.5 - ENCOUNTER FOR PALLIATIVE CARE Status: Acute Current Visit: Yes (2) Anorexia SNOMED Code(s): 39267394 Code(s): R63.0 - ANOREXIA Status: Acute Current Visit: Yes (3) COPD with exacerbation SNOMED Code(s): 577424399 Code(s): J44.1 - CHRONIC OBSTRUCTIVE PULMONARY DISEASE W (ACUTE) EXACERBATION Status: Acute Current Visit: Yes (4) Tobacco abuse SNOMED Code(s): 050704267 Code(s): Z72.0 - TOBACCO USE Status: Acute Current Visit: Yes - Problem List Review Problem List Initiated/Reviewed/Updated: Yes - My Orders Last 24 Hours: My Active Orders 06/27/17 14:00 Acetaminophen/HYDROcodone [[place] 325-5 MG] 1 tab PO TID 06/28/17 08:32 RT Post Treatment Assessment [RC] Click to Edit 06/28/17 09:00 Tiotropium [Spiriva HandiHaler] 18 mcg INH DAILY 06/29/17 08:00 predniSONE 60 mg PO WITHBREAKFAST - Plan Plan:: 1. DC Solu-Medrol and start prednisone 60 mg a day. 2. Spiriva 1 puff a day. 3. Up in chair and ambulate frequently. 4. Continue to keep saturations between 88-92%. Attempting to wean down his O2.
[2017-06-28] MEDS: predniSONE 20 MG Tab PO SCH (08:53)
[2017-06-28] MEDS: Naproxen 500 MG Tab PO SCH ×2 (08:53→21:12)
[2017-06-28] MEDS: Acetaminophen/HYDROcodone 325-5 MG Tab PO SCH ×3 (08:54→21:13)
[2017-06-28] MEDS: Losartan 100 MG Tab PO SCH (09:00)
[2017-06-28] MEDS ORDERED: methylPREDNISolone Sodium Succinate 125 MG/2 ML SDV IVPUSH SCH (09:00)
[2017-06-28] MEDS: Simvastatin 10 MG Tab PO SCH (09:01)
[2017-06-28] MEDS: Multivitamin Tab PO SCH (10:30)
[2017-06-28] MEDS: Tiotropium Inhaler 18 MCG Inhalation Powder Cap Kit of 5 INH SCH (10:46)
[2017-06-28] MEDS: Nicotine 21 MG/24 Hr Patch TRDERM SCH (11:55)
[2017-06-28] MEDS: Albuterol 0.083% 2.5 MG/3 ML Neb Soln NEB PRN (14:09)
[2017-06-28] MEDS: Mirtazapine 15 MG Tab PO SCH (21:11)
[2017-06-28] MEDS: traZODone 50 MG Tab PO SCH (21:13)
[2017-06-29] MEDS: Albuterol/Ipratropium 3.0-0.5 MG/3 ML Neb Soln INH SCH ×4 (07:32→20:32)
[2017-06-29] MEDS: predniSONE 20 MG Tab PO SCH (08:42)
[2017-06-29] MEDS: Tiotropium Inhaler 18 MCG Inhalation Powder Cap Kit of 5 INH SCH (08:43)
[2017-06-29] MEDS: Multivitamin Tab PO SCH (08:44)
[2017-06-29] MEDS: Naproxen 500 MG Tab PO SCH ×2 (08:46→20:35)
[2017-06-29] MEDS: Acetaminophen/HYDROcodone 325-5 MG Tab PO SCH ×3 (09:02→20:33)
[2017-06-29] MEDS: Albuterol 0.083% 2.5 MG/3 ML Neb Soln NEB PRN (09:12)
--- NOTE | 2017-06-29 09:29 | PCM.PN ---
- General Info Date of Service: 06/29/17 Admission Dx/Problem (Free Text): Patient states he was more short of breath this morning and he has pain all over his body. He had some coughing this morning but he always has that. No changes. No fevers, chills or chest pain. He says he has sweats this morning. - Patient Data Vitals - Most Recent: Last Vital Signs Temp 98 F 06/29/17 04:30 Pulse 82 06/29/17 04:30 Resp 20 06/29/17 04:30 BP 132/80 06/29/17 04:30 Pulse Ox 97 06/29/17 04:30 Weight - Most Recent: 117 lb 4.8 oz Med Orders - Current: Current Medications Hydrocodone Bitart/Acetaminophen ([place] 325-5 Mg) 1 tab PO TID [facility] Last Admin: 06/29/17 09:02 Dose: 1 tab Albuterol (Proventil Neb Soln) 2.5 mg NEB Q2H PRN PRN Reason: Dyspnea Last Admin: 06/29/17 09:12 Dose: 2.5 mg Albuterol/Ipratropium (Duoneb 3.0-0.5 Mg/3 Ml) 3 ml INH ONETIME PRN PRN Reason: Shortness Of Breath/wheezing Albuterol/Ipratropium (Duoneb 3.0-0.5 Mg/3 Ml) 3 ml INH QIDRT [facility] Last Admin: 06/29/17 07:32 Dose: 3 ml Clonazepam (Klonopin) 0.5 mg PO BID PRN PRN Reason: Anxiety Last Admin: 06/28/17 04:21 Dose: 0.5 mg Docusate Sodium (Colace) 100 mg PO BID PRN PRN Reason: Constipation Losartan Potassium (Cozaar) 100 mg PO DAILY [facility] Last Admin: 06/28/17 09:00 Dose: 100 mg Mirtazapine (Remeron) 15 mg PO BEDTIME [facility] Last Admin: 06/28/17 21:11 Dose: 15 mg Multivitamins/Minerals/Vitamin C (Tab-A-Dana) 1 tab PO DAILY [facility] Last Admin: 06/29/17 08:44 Dose: 1 tab Naproxen (Naprosyn) 500 mg PO Q12H [facility] Last Admin: 06/29/17 08:46 Dose: 500 mg Nicotine (Habitrol) 21 mg TRDERM Q24H [facility] Last Admin: 06/28/17 11:55 Dose: 21 mg Prednisone (Prednisone) 60 mg PO WITHBREAKFAST [facility] Last Admin: 06/29/17 08:42 Dose: 60 mg Simvastatin (Zocor) 10 mg PO DAILY [facility] Last Admin: 06/28/17 09:01 Dose: 10 mg Sodium Chloride (Saline Flush) 10 ml FLUSH ASDIRECTED PRN PRN Reason: Keep Vein Open Last Admin: 06/27/17 09:45 Dose: 10 ml Tiotropium [place] (Spiriva Handihaler) 18 mcg INH DAILY [facility] Last Admin: 06/29/17 08:43 Dose: 1 inhaler Trazodone HCl (Trazodone) 50 mg PO BEDTIME [facility] Last Admin: 06/28/17 21:13 Dose: 50 mg Varenicline (Chantix) 0.5 mg PO BID [facility] Stop: 07/01/17 21:01 Last Admin: 06/29/17 08:44 Dose: 0.5 mg Varenicline (Chantix) 1 mg PO BID [facility] Discontinued Medications Hydrocodone Bitart/Acetaminophen ([place] 325-5 Mg) 1 tab PO BID [facility] Hydrocodone Bitart/Acetaminophen ([place] 325-5 Mg) 1 tab PO BID [facility] Last Admin: 06/24/17 08:13 Dose: 1 tab Hydrocodone Bitart/Acetaminophen ([place] 325-5 Mg) 1 tab PO BID@0900,1700 [facility] Last Admin: 06/27/17 09:41 Dose: 1 tab Hydrocodone Bitart/Acetaminophen ([place] 325-5 Mg) 1 tab PO BID@0800,1700 [facility] Albuterol/Ipratropium (Duoneb 3.0-0.5 Mg/3 Ml) 3 ml NEB ONETIME ONE Stop: 06/23/17 18:10 Last Admin: 06/23/17 18:23 Dose: 3 ml Albuterol/Ipratropium (Duoneb 3.0-0.5 Mg/3 Ml) 3 ml INH QID [facility] Azithromycin 500 mg/ Sodium (Chloride) 250 mls @ 250 mls/hr IV Q24H [facility] Last Admin: 06/24/17 09:14 Dose: 250 mls/hr Azithromycin 500 mg/ Sodium (Chloride) 250 mls @ 250 mls/hr IV Q24H [facility] Last Admin: 06/26/17 09:44 Dose: 250 mls/hr Ibuprofen (Motrin) 400 mg PO BID@1000,1800 [facility] Last Admin: 06/24/17 18:49 Dose: 400 mg Ibuprofen (Motrin) 400 mg PO BID@1000,1800 [facility] Last Admin: 06/25/17 17:09 Dose: 400 mg Iopamidol (Isovue-370 (76%)) 75 ml IV ONETIME ONE Stop: 06/24/17 11:56 Last Admin: 06/24/17 12:03 Dose: 75 ml Methylprednisolone Sodium Succinate (Solu-Medrol) 125 mg IVPUSH ONETIME ONE Stop: 06/23/17 18:09 Last Admin: 06/23/17 18:23 Dose: 125 mg Methylprednisolone Sodium Succinate (Solu-Medrol) 125 mg IVPUSH Q8H [facility] Last Admin: 06/27/17 09:42 Dose: 125 mg Methylprednisolone Sodium Succinate (Solu-Medrol) 125 mg IVPUSH DAILY [facility] Nicotine (Habitrol) 21 mg TRDERM Q24H [facility] Last Admin: 06/24/17 14:24 Dose: Not Given Nicotine (Habitrol) 21 mg TRDERM Q24H [facility] Last Admin: 06/24/17 14:41 Dose: 21 mg Trazodone HCl (Trazodone) 50 mg PO BEDTIME [facility] Varenicline (Chantix) 0.5 mg PO DAILY [facility] Stop: 06/27/17 09:01 Last Admin: 06/27/17 09:41 Dose: 0.5 mg - Exam General: Alert, Oriented, Cooperative Neck: Supple Lungs: Normal Respiratory Effort, Decreased Breath Sounds. No: Crackles, Rales , Wheezing Cardiovascular: Regular Rate, Regular Rhythm, No Murmurs Extremities: No Pedal Edema - Problem List & Annotations (1) Palliative care patient SNOMED Code(s): 558201187 Code(s): Z51.5 - ENCOUNTER FOR PALLIATIVE CARE Status: Acute Current Visit: Yes (2) Anorexia SNOMED Code(s): 78409722 Code(s): R63.0 - ANOREXIA Status: Acute Current Visit: Yes (3) COPD with exacerbation SNOMED Code(s): 500830708 Code(s): J44.1 - CHRONIC OBSTRUCTIVE PULMONARY DISEASE W (ACUTE) EXACERBATION Status: Acute Current Visit: Yes (4) Tobacco abuse SNOMED Code(s): 601669963 Code(s): Z72.0 - TOBACCO USE Status: Acute Current Visit: Yes (5) Dyspnea SNOMED Code(s): 967983464 Code(s): R06.00 - DYSPNEA, UNSPECIFIED Status: Acute Current Visit: Yes - Problem List Review Problem List Initiated/Reviewed/Updated: Yes - My Orders Last 24 Hours: My Active Orders 06/28/17 08:32 RT Post Treatment Assessment [RC] Click to Edit 06/28/17 09:00 Tiotropium [Spiriva HandiHaler] 18 mcg INH DAILY - Plan Plan:: 1. Patient's IV is going to have to come out so DC it. Were not using at this time. 2. Repeat chest x-ray just to make sure not missing anything I can pneumonia that's now.. He had a CT scan a chest x-ray the past as negative. 3. Patient having very slow recovery from his COPD. Patient made some mild progress from going to 3-2 L. 4. PT/OT did not pick him up for possible rehabilitation. Have health social work professor see him in the a.m. Family's concerned about where he lives because he has steps when he comes in the house.
[2017-06-29] MEDS ORDERED: LORazepam 0.5 MG Tab PO PRN (09:31)
[2017-06-29] MEDS: Losartan 100 MG Tab PO SCH (11:56)
[2017-06-29] MEDS: Simvastatin 10 MG Tab PO SCH (11:56)
[2017-06-29] MEDS: Nicotine 21 MG/24 Hr Patch TRDERM SCH (11:59)
[2017-06-29] MEDS: LORazepam 0.5 MG Tab PO SCH (20:34)
[2017-06-29] MEDS: Mirtazapine 15 MG Tab PO SCH (20:36)
[2017-06-29] MEDS: traZODone 50 MG Tab PO SCH (20:37)
[2017-06-30] MEDS: Acetaminophen/HYDROcodone 325-5 MG Tab PO SCH ×4 (02:53→20:12)
[2017-06-30] MEDS: Albuterol/Ipratropium 3.0-0.5 MG/3 ML Neb Soln INH SCH ×4 (07:19→20:56)
[2017-06-30] MEDS: predniSONE 20 MG Tab PO SCH (08:57)
[2017-06-30] MEDS: LORazepam 0.5 MG Tab PO SCH ×3 (08:58→20:56)
[2017-06-30] MEDS: Losartan 100 MG Tab PO SCH (08:58)
[2017-06-30] MEDS: Tiotropium Inhaler 18 MCG Inhalation Powder Cap Kit of 5 INH SCH (08:59)
[2017-06-30] MEDS: Naproxen 500 MG Tab PO SCH ×2 (08:59→20:56)
[2017-06-30] MEDS: Multivitamin Tab PO SCH (08:59)
[2017-06-30] MEDS: Simvastatin 10 MG Tab PO SCH (09:08)
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
[2017-06-30] MEDS: Nicotine 21 MG/24 Hr Patch TRDERM SCH (11:52)
--- NOTE | 2017-06-30 12:01 | CR ---
INDICATION: COPD. CHEST: PA and lateral views of the chest 06/29/2017 were compared with 2017 and 05/16/2014. Findings remain compatible with COPD and ASD aorta with the heart appearing normal in size. Somewhat diminished bone density is suggested, which could be on the basis of osteoporosis or osteomalacia and should be correlated clinically. Flowing hyperostotic changes are noted at a few levels in the lower middle thoracic spine, suggesting possibility of DISH. Dextroconvex scoliosis at the lower thoracic spine is also again suggested. Healed rib fractures are noted again posterolaterally on the right. A definite active infiltrate or effusion was not identified. IMPRESSION: 1. No definite acute process. 2. COPD. 3. Mild pulmonary fibrosis - at the left costophrenic angle. 4. ASD aorta. 5. Possible osteoporosis and DISH. MTDD
[2017-06-30] MEDS: Mirtazapine 15 MG Tab PO SCH (20:56)
[2017-06-30] MEDS: traZODone 50 MG Tab PO SCH (20:57)
[2017-07-01] MEDS: Acetaminophen/HYDROcodone 325-5 MG Tab PO SCH ×3 (02:12→14:11)
[2017-07-01] MEDS: Albuterol/Ipratropium 3.0-0.5 MG/3 ML Neb Soln INH SCH ×3 (07:25→15:02)
--- NOTE | 2017-07-01 08:07 | PCM.PN ---
- General Info Date of Service: 07/01/17 Admission Dx/Problem (Free Text): Patient states his breathing is about the same today. Still has a cough. So as his back and generalized pain. - Patient Data Vitals - Most Recent: Last Vital Signs Temp 98.2 F 07/01/17 04:00 Pulse 98 07/01/17 07:55 Resp 18 07/01/17 04:00 BP 106/67 07/01/17 04:00 Pulse Ox 94 L 07/01/17 08:00 Weight - Most Recent: 117 lb 4.8 oz Med Orders - Current: Current Medications Hydrocodone Bitart/Acetaminophen ([place] 325-5 Mg) 1 tab PO Q6H [facility] Last Admin: 07/01/17 02:12 Dose: 1 tab Albuterol (Proventil Neb Soln) 2.5 mg NEB Q2H PRN PRN Reason: Dyspnea Last Admin: 06/29/17 09:12 Dose: 2.5 mg Albuterol/Ipratropium (Duoneb 3.0-0.5 Mg/3 Ml) 3 ml INH ONETIME PRN PRN Reason: Shortness Of Breath/wheezing Albuterol/Ipratropium (Duoneb 3.0-0.5 Mg/3 Ml) 3 ml INH QIDRT [facility] Last Admin: 07/01/17 07:25 Dose: 3 ml Docusate Sodium (Colace) 100 mg PO BID PRN PRN Reason: Constipation Lorazepam (Ativan) 0.5 mg PO TID [facility] Last Admin: 06/30/17 20:56 Dose: 0.5 mg Losartan Potassium (Cozaar) 100 mg PO DAILY [facility] Last Admin: 06/30/17 08:58 Dose: 100 mg Mirtazapine (Remeron) 15 mg PO BEDTIME [facility] Last Admin: 06/30/17 20:56 Dose: 15 mg Multivitamins/Minerals/Vitamin C (Tab-A-Dana) 1 tab PO DAILY [facility] Last Admin: 06/30/17 08:59 Dose: 1 tab Naproxen (Naprosyn) 500 mg PO Q12H [facility] Last Admin: 06/30/17 20:56 Dose: 500 mg Nicotine (Habitrol) 21 mg TRDERM Q24H [facility] Last Admin: 06/30/17 11:52 Dose: 21 mg Prednisone (Prednisone) 60 mg PO WITHBREAKFAST [facility] Last Admin: 06/30/17 08:57 Dose: 60 mg Simvastatin (Zocor) 10 mg PO DAILY [facility] Last Admin: 06/30/17 09:08 Dose: 10 mg Tiotropium [place] (Spiriva Handihaler) 18 mcg INH DAILY [facility] Last Admin: 06/30/17 08:59 Dose: 1 inhaler Trazodone HCl (Trazodone) 50 mg PO BEDTIME [facility] Last Admin: 06/30/17 20:57 Dose: 50 mg Discontinued Medications Hydrocodone Bitart/Acetaminophen ([place] 325-5 Mg) 1 tab PO BID [facility] Hydrocodone Bitart/Acetaminophen ([place] 325-5 Mg) 1 tab PO BID [facility] Last Admin: 06/24/17 08:13 Dose: 1 tab Hydrocodone Bitart/Acetaminophen ([place] 325-5 Mg) 1 tab PO BID@0900,1700 [facility] Last Admin: 06/27/17 09:41 Dose: 1 tab Hydrocodone Bitart/Acetaminophen ([place] 325-5 Mg) 1 tab PO BID@0800,1700 [facility] Hydrocodone Bitart/Acetaminophen ([place] 325-5 Mg) 1 tab PO TID [facility] Last Admin: 06/29/17 14:13 Dose: 1 tab Albuterol/Ipratropium (Duoneb 3.0-0.5 Mg/3 Ml) 3 ml NEB ONETIME ONE Stop: 06/23/17 18:10 Last Admin: 06/23/17 18:23 Dose: 3 ml Albuterol/Ipratropium (Duoneb 3.0-0.5 Mg/3 Ml) 3 ml INH QID [facility] Clonazepam (Klonopin) 0.5 mg PO BID PRN PRN Reason: Anxiety Last Admin: 06/28/17 04:21 Dose: 0.5 mg Azithromycin 500 mg/ Sodium (Chloride) 250 mls @ 250 mls/hr IV Q24H [facility] Last Admin: 06/24/17 09:14 Dose: 250 mls/hr Azithromycin 500 mg/ Sodium (Chloride) 250 mls @ 250 mls/hr IV Q24H [facility] Last Admin: 06/26/17 09:44 Dose: 250 mls/hr Ibuprofen (Motrin) 400 mg PO BID@1000,1800 [facility] Last Admin: 06/24/17 18:49 Dose: 400 mg Ibuprofen (Motrin) 400 mg PO BID@1000,1800 [facility] Last Admin: 06/25/17 17:09 Dose: 400 mg Iopamidol (Isovue-370 (76%)) 75 ml IV ONETIME ONE Stop: 06/24/17 11:56 Last Admin: 06/24/17 12:03 Dose: 75 ml Lorazepam (Ativan) 0.5 mg PO Q6H PRN PRN Reason: Anxiety Methylprednisolone Sodium Succinate (Solu-Medrol) 125 mg IVPUSH ONETIME ONE Stop: 06/23/17 18:09 Last Admin: 06/23/17 18:23 Dose: 125 mg Methylprednisolone Sodium Succinate (Solu-Medrol) 125 mg IVPUSH Q8H [facility] Last Admin: 06/27/17 09:42 Dose: 125 mg Methylprednisolone Sodium Succinate (Solu-Medrol) 125 mg IVPUSH DAILY [facility] Nicotine (Habitrol) 21 mg TRDERM Q24H [facility] Last Admin: 06/24/17 14:24 Dose: Not Given Nicotine (Habitrol) 21 mg TRDERM Q24H [facility] Last Admin: 06/24/17 14:41 Dose: 21 mg Sodium Chloride (Saline Flush) 10 ml FLUSH ASDIRECTED PRN PRN Reason: Keep Vein Open Last Admin: 06/27/17 09:45 Dose: 10 ml Trazodone HCl (Trazodone) 50 mg PO BEDTIME [facility] Varenicline (Chantix) 0.5 mg PO DAILY [facility] Stop: 06/27/17 09:01 Last Admin: 06/27/17 09:41 Dose: 0.5 mg Varenicline (Chantix) 0.5 mg PO BID [facility] Stop: 07/01/17 21:01 Last Admin: 06/29/17 08:44 Dose: 0.5 mg Varenicline (Chantix) 1 mg PO BID [facility] - Exam General: Alert, Oriented, Cooperative Neck: Supple Lungs: Normal Respiratory Effort, Decreased Breath Sounds. No: Crackles, Rales , Rhonchi Cardiovascular: Regular Rate, Regular Rhythm, No Murmurs Extremities: No Pedal Edema - Problem List & Annotations (1) Palliative care patient SNOMED Code(s): 400516133 Code(s): Z51.5 - ENCOUNTER FOR PALLIATIVE CARE Status: Acute Current Visit: Yes (2) Anorexia SNOMED Code(s): 76382093 Code(s): R63.0 - ANOREXIA Status: Acute Current Visit: Yes (3) COPD with exacerbation SNOMED Code(s): 969550970 Code(s): J44.1 - CHRONIC OBSTRUCTIVE PULMONARY DISEASE W (ACUTE) EXACERBATION Status: Acute Current Visit: Yes (4) Tobacco abuse SNOMED Code(s): 542201741 Code(s): Z72.0 - TOBACCO USE Status: Acute Current Visit: Yes (5) Dyspnea SNOMED Code(s): 902578664 Code(s): R06.00 - DYSPNEA, UNSPECIFIED Status: Acute Current Visit: Yes - Problem List Review Problem List Initiated/Reviewed/Updated: Yes - My Orders Last 24 Hours: My Active Orders 06/30/17 10:22 OT Evaluation and Treatment [CONS] Routine PT Evaluation and Treatment [CONS] Routine - Plan Plan:: Discharge to home on home O2, nebulizers, hydrocodone with home health, PT and OT.
[2017-07-01] MEDS: LORazepam 0.5 MG Tab PO SCH ×2 (08:15→14:12)
[2017-07-01] MEDS: predniSONE 20 MG Tab PO SCH (08:15)
[2017-07-01] MEDS: Naproxen 500 MG Tab PO SCH (08:15)
[2017-07-01] MEDS: Simvastatin 10 MG Tab PO SCH (08:15)
[2017-07-01] MEDS: Losartan 100 MG Tab PO SCH (08:15)
[2017-07-01] MEDS: Multivitamin Tab PO SCH (08:16)
[2017-07-01] MEDS: Tiotropium Inhaler 18 MCG Inhalation Powder Cap Kit of 5 INH SCH (08:16)
--- NOTE | 2017-07-01 08:25 | PCM.DCSUM1 ---
Discharge Summary - Hospital Course Free Text/Narrative:: Hospital course-patient was admitted and put on Solu-Medrol. Initially put on Zithromax. Had a chest x-ray that shows COPD and no pneumonia. CAT scan of the chest also confirmed COPD and will fibrosis with no pneumonia. Patient was on 4 L nasal cannula. Suspected some sort of infection started this. He has a slow recovery. He normally takes O2 at night but not during the day. He does smoke and was put on Chantix and NicoDerm for that. He was not eating well and was put on Remeron. He had Anxiety from his breathing problems so start some Ativan which seemed to help. We're able to get him down to 2 L but no lower. He was evaluated by PT/OT. He did not qualify for swing bed. After discussed with the family will discharge him to home on home health, PT/OT. He has chronic back pain was supposed to have surgery. He had to increase his hydrocodone from 2 a day to 4 times a day. Brief History: Robbie is a 77-year-old male who came in because of cough shortness of breath difficulty breathing that started on Friday night. He could not get into his personal physician Friday and came to the ER at night. He has a history of severe oxygen dependent COPD. He denies fever chills but has a cough that is productive for yellow sputum. He has a history of stable chronic back pain, scoliosis that is stable and hyperlipidemia that is well controlled. However he continues to smoke. - Discharge Data Discharge Date: 07/01/17 Discharge Disposition: Home, Self-Care 01 Condition: Fair - Discharge Diagnosis/Problem(s) (1) Palliative care patient SNOMED Code(s): 212282027 ICD Code: Z51.5 - ENCOUNTER FOR PALLIATIVE CARE Status: Acute Current Visit: Yes (2) Anorexia SNOMED Code(s): 95888831 ICD Code: R63.0 - ANOREXIA Status: Acute Current Visit: Yes (3) COPD with exacerbation SNOMED Code(s): 513174729 ICD Code: J44.1 - CHRONIC OBSTRUCTIVE PULMONARY DISEASE W (ACUTE) EXACERBATION Status: Acute Current Visit: Yes (4) Tobacco abuse SNOMED Code(s): 139720445 ICD Code: Z72.0 - TOBACCO USE Status: Acute Current Visit: Yes (5) Dyspnea SNOMED Code(s): 535967319 ICD Code: R06.00 - DYSPNEA, UNSPECIFIED Status: Acute Current Visit: Yes - Patient Summary/Data Consults: Consultations 06/26/17 08:55 OT Evaluation and Treatment [CONS] Routine Please Evaluate and Treat. OT Reason for Consult: ADL's This query below is only for informational purposes and is not editable. Admission Diagnosis/Problem: COPD, Moderate chronic obstructive pulmonary disease PT Evaluation and Treatment [CONS] Routine Please Evaluate and Treat. PT Reason for Consult: Ambulation This query below is only for informational purposes and is not editable. Admission Diagnosis/Problem: COPD, Moderate chronic obstructive pulmonary disease 06/29/17 19:21 Consult to Comparator Operator [CONS] Routine Comment: consult on patient's discharge Physician Instructions: 06/30/17 10:22 OT Evaluation and Treatment [CONS] Routine Please Evaluate and Treat. OT Reason for Consult: Discharge Planning Pending Discharge: reassess patient, has concerns with going home. Special Instructions: does have stairs at home concern with how he will manage This query below is only for informational purposes and is not editable. Admission Diagnosis/Problem: COPD, Moderate chronic obstructive pulmonary disease PT Evaluation and Treatment [CONS] Routine Please Evaluate and Treat. PT Reason for Consult: reassess patient has concerns with going home Special Instructions: does have stairs at home concern with going home and how they will manage This query below is only for informational purposes and is not editable. Admission Diagnosis/Problem: COPD, Moderate chronic obstructive pulmonary disease - Patient Instructions Diet: Regular Diet as Tolerated Activity: As Tolerated Driving: May Drive Today Showering/Bathing: May Shower Notify Provider of: Fever Other/Special Instructions: 1. Recheck with Dr. Hoffman 7-10 days. 2. Home O2 2 L nasal cannula. 3. Home health, PT/OT for home safety, strengthening, ambulation, ADLs, medical management and teaching - Discharge Plan Prescriptions/Med Rec: Budesonide/Formoterol Fumarate [Symbicort 160-4.5 Mcg Inhaler] 1 puff IH BID #1 canister Hydrocodone/Acetaminophen [Hydrocodon-Acetaminophen 5-325] 1 tab PO QID #120 tablet Ibuprofen [Advil] 400 mg PO Q4H PRN #180 tablet PRN Reason: Dyspnea LORazepam [Ativan] 0.5 mg PO TID PRN #90 tablet PRN Reason: Anxiety Mirtazapine [Remeron] 15 mg PO BEDTIME #30 tablet Nicotine [Nicotine Patch] 1 each TD DAILY #30 patch.td24 Tiotropium [Spiriva HandiHaler] 18 mcg INH DAILY #30 cap Varenicline Tartrate [Chantix] 1 each PO BID #30 tab.ds.pk Home Medications: Home Meds Albuterol/Ipratropium [DuoNeb 3.0-0.5 MG/3 ML] 3 ml INH QIDRT neb 03/27/16 [Rx] Losartan [Cozaar] 100 mg PO DAILY tablet 03/27/16 [Rx] Nicotine [Habitrol] 21 mg TRDERM Q24H patch 03/27/16 [Rx] Simvastatin [Zocor] 10 mg PO DAILY tablet 03/27/16 [Rx] traZODone HCl [Trazodone HCl] 50 mg PO BEDTIME 06/23/17 [History] Budesonide/Formoterol Fumarate [Symbicort 160-4.5 Mcg Inhaler] 1 puff IH BID #1 canister 07/01/17 [Rx] Hydrocodone/Acetaminophen [Hydrocodon-Acetaminophen 5-325] 1 tab PO QID #120 tablet 07/01/17 [Rx] Ibuprofen [Advil] 400 mg PO Q4H PRN #180 tablet 07/01/17 [Rx] LORazepam [Ativan] 0.5 mg PO TID PRN #90 tablet 07/01/17 [Rx] Mirtazapine [Remeron] 15 mg PO BEDTIME #30 tablet 07/01/17 [Rx] Nicotine [Nicotine Patch] 1 each TD DAILY #30 patch.td24 07/01/17 [Rx] Tiotropium [Spiriva HandiHaler] 18 mcg INH DAILY #30 cap 07/01/17 [Rx] Varenicline Tartrate [Chantix] 1 each PO BID #30 tab.ds.pk 07/01/17 [Rx] Patient Handouts: Chronic Obstructive Pulmonary Disease Exacerbation, Easy-to- Read, Steps to Quit Smoking, [id number], Venous Thromboembolism, Fall Prevention in Hospitals, Adult, Preventing Antibiotic Resistance Forms: ED Department Discharge Referrals: Kishan Lam MD [Primary Care Provider] - - Discharge Summary/Plan Comment DC Time >30 min.: No - Patient Data Vitals - Most Recent: Last Vital Signs Temp 98.2 F 07/01/17 04:00 Pulse 98 07/01/17 07:55 Resp 18 07/01/17 04:00 BP 92/56 L 07/01/17 08:15 Pulse Ox 94 L 07/01/17 08:00 Weight - Most Recent: 117 lb 4.8 oz Med Orders - Current: Current Medications Hydrocodone Bitart/Acetaminophen ([place] 325-5 Mg) 1 tab PO Q6H [facility] Last Admin: 07/01/17 08:16 Dose: 1 tab Albuterol (Proventil Neb Soln) 2.5 mg NEB Q2H PRN PRN Reason: Dyspnea Last Admin: 06/29/17 09:12 Dose: 2.5 mg Albuterol/Ipratropium (Duoneb 3.0-0.5 Mg/3 Ml) 3 ml INH ONETIME PRN PRN Reason: Shortness Of Breath/wheezing Albuterol/Ipratropium (Duoneb 3.0-0.5 Mg/3 Ml) 3 ml INH QIDRT [facility] Last Admin: 07/01/17 07:25 Dose: 3 ml Docusate Sodium (Colace) 100 mg PO BID PRN PRN Reason: Constipation Lorazepam (Ativan) 0.5 mg PO TID [facility] Last Admin: 07/01/17 08:15 Dose: 0.5 mg Losartan Potassium (Cozaar) 100 mg PO DAILY [facility] Last Admin: 07/01/17 08:15 Dose: 100 mg Mirtazapine (Remeron) 15 mg PO BEDTIME [facility] Last Admin: 06/30/17 20:56 Dose: 15 mg Multivitamins/Minerals/Vitamin C (Tab-A-Dnaa) 1 tab PO DAILY [facility] Last Admin: 07/01/17 08:16 Dose: 1 tab Naproxen (Naprosyn) 500 mg PO Q12H [facility] Last Admin: 07/01/17 08:15 Dose: 500 mg Nicotine (Habitrol) 21 mg TRDERM Q24H [facility] Last Admin: 06/30/17 11:52 Dose: 21 mg Prednisone (Prednisone) 60 mg PO WITHBREAKFAST [facility] Last Admin: 07/01/17 08:15 Dose: 60 mg Simvastatin (Zocor) 10 mg PO DAILY [facility] Last Admin: 07/01/17 08:15 Dose: 10 mg Tiotropium [place] (Spiriva Handihaler) 18 mcg INH DAILY [facility] Last Admin: 07/01/17 08:16 Dose: 1 inhaler Trazodone HCl (Trazodone) 50 mg PO BEDTIME [facility] Last Admin: 06/30/17 20:57 Dose: 50 mg Discontinued Medications Hydrocodone Bitart/Acetaminophen ([place] 325-5 Mg) 1 tab PO BID [facility] Hydrocodone Bitart/Acetaminophen ([place] 325-5 Mg) 1 tab PO BID [facility] Last Admin: 06/24/17 08:13 Dose: 1 tab Hydrocodone Bitart/Acetaminophen ([place] 325-5 Mg) 1 tab PO BID@0900,1700 [facility] Last Admin: 06/27/17 09:41 Dose: 1 tab Hydrocodone Bitart/Acetaminophen ([place] 325-5 Mg) 1 tab PO BID@0800,1700 [facility] Hydrocodone Bitart/Acetaminophen ([place] 325-5 Mg) 1 tab PO TID [facility] Last Admin: 06/29/17 14:13 Dose: 1 tab Albuterol/Ipratropium (Duoneb 3.0-0.5 Mg/3 Ml) 3 ml NEB ONETIME ONE Stop: 06/23/17 18:10 Last Admin: 06/23/17 18:23 Dose: 3 ml Albuterol/Ipratropium (Duoneb 3.0-0.5 Mg/3 Ml) 3 ml INH QID [facility] Clonazepam (Klonopin) 0.5 mg PO BID PRN PRN Reason: Anxiety Last Admin: 06/28/17 04:21 Dose: 0.5 mg Azithromycin 500 mg/ Sodium (Chloride) 250 mls @ 250 mls/hr IV Q24H [facility] Last Admin: 06/24/17 09:14 Dose: 250 mls/hr Azithromycin 500 mg/ Sodium (Chloride) 250 mls @ 250 mls/hr IV Q24H [facility] Last Admin: 06/26/17 09:44 Dose: 250 mls/hr Ibuprofen (Motrin) 400 mg PO BID@1000,1800 [facility] Last Admin: 06/24/17 18:49 Dose: 400 mg Ibuprofen (Motrin) 400 mg PO BID@1000,1800 [facility] Last Admin: 06/25/17 17:09 Dose: 400 mg Iopamidol (Isovue-370 (76%)) 75 ml IV ONETIME ONE Stop: 06/24/17 11:56 Last Admin: 06/24/17 12:03 Dose: 75 ml Lorazepam (Ativan) 0.5 mg PO Q6H PRN PRN Reason: Anxiety Methylprednisolone Sodium Succinate (Solu-Medrol) 125 mg IVPUSH ONETIME ONE Stop: 06/23/17 18:09 Last Admin: 06/23/17 18:23 Dose: 125 mg Methylprednisolone Sodium Succinate (Solu-Medrol) 125 mg IVPUSH Q8H [facility] Last Admin: 06/27/17 09:42 Dose: 125 mg Methylprednisolone Sodium Succinate (Solu-Medrol) 125 mg IVPUSH DAILY [facility] Nicotine (Habitrol) 21 mg TRDERM Q24H [facility] Last Admin: 06/24/17 14:24 Dose: Not Given Nicotine (Habitrol) 21 mg TRDERM Q24H [facility] Last Admin: 06/24/17 14:41 Dose: 21 mg Sodium Chloride (Saline Flush) 10 ml FLUSH ASDIRECTED PRN PRN Reason: Keep Vein Open Last Admin: 06/27/17 09:45 Dose: 10 ml Trazodone HCl (Trazodone) 50 mg PO BEDTIME [facility] Varenicline (Chantix) 0.5 mg PO DAILY [facility] Stop: 06/27/17 09:01 Last Admin: 06/27/17 09:41 Dose: 0.5 mg Varenicline (Chantix) 0.5 mg PO BID [facility] Stop: 07/01/17 21:01 Last Admin: 06/29/17 08:44 Dose: 0.5 mg Varenicline (Chantix) 1 mg PO BID [facility] *Q Meaningful Use (DIS) - VTE *Q VTE Criteria *Q: - Stroke *Q Stroke Criteria *Q: - AMI *Q AMI Criteria *Q:
[2017-07-01] MEDS: Nicotine 21 MG/24 Hr Patch TRDERM SCH (12:51)
[2017-07-01 16:15] VITALS: BP 79/47
== END 2017-07-01 17:00 | disposition home or self-care (01) | DRG 192 ==
LOC: FB.ED 18:01 → FB.MS 19:25 → OBSVTOIN 06-25 09:10
PROVIDERS: ADMIT Family Medicine; ATTEND Family Medicine
DX: J44.1 Chronic obstructive pulmonary disease with (acute) exacerbation (principal); R09.02 Hypoxemia; I10 Essential (primary) hypertension; F17.210 Nicotine dependence, cigarettes, uncomplicated; M41.20 Other idiopathic scoliosis, site unspecified; M54.9 Dorsalgia, unspecified; G89.29 Other chronic pain; Z99.81 Dependence on supplemental oxygen; R06.02 Shortness of breath; R05 Cough; F41.9 Anxiety disorder, unspecified; R63.0 Anorexia; M54.2 Cervicalgia; E78.5 Hyperlipidemia, unspecified; M19.90 Unspecified osteoarthritis, unspecified site; Z51.5 Encounter for palliative care; Z88.0 Allergy status to penicillin; R06.00 Dyspnea, unspecified
CPT/HCPCS: 36415; 36600; 71045; 71046; 71260; 80048; 82803; 83880; 84484; 85025; 85610; 87070; 87205; 93005; 94150; 94640; 96374; 97161-GP; 97165-GO; 97166-GO; 99285; A9270-GY; J0456; J2930; J7050; J7620; Q9967

== ENCOUNTER 2017-11-10 11:54 | Inpatient (IN) | payer MEDICARE, OTHER ==
[2017-11-10] MEDS ORDERED: Docusate Sodium 100 MG Cap PO PRN (16:43)
[2017-11-10] MEDS ORDERED: Polyethylene Glycol 3350 Powder 17 GM Packet PO PRN (16:43)
[2017-11-10] MEDS ORDERED: Acetaminophen 325 MG Tab PO SCH (17:00)
--- NOTE | 2017-11-10 17:01 | PCM.HP ---
H&P History of Present Illness - General Date of Service: 11/10/17 Admit Problem/Dx: Admission Diagnosis/Problem Admission Diagnosis/Problem Debility - History of Present Illness Initial Comments - Free Text/Narative: Patient is a 77-year-old male who came from [place] today after a right shoulder rotator cuff reconstruction on 11/05/[address] Valadez. Patient is doing well except for pain management. His hospital course postoperatively was complicated by difficulty in managing pain, acute urinary retention, and COPD with episodes of hypoxia nocturnally. He was started on duo nebs which is made an incredible difference for him respiratory méndez. He currently is feeling fairly good. He doesn't feel like himself at all and is still having a lot of problems with right shoulder pain but he's had no sinus congestion, no cough, no shortness of breath other than his baseline which is better because of the duo nebs, no nausea or vomiting, no appetite but he hasn't been queasy. Bowels have been responding to laxatives and he had a couple bowel movements since surgery. No fevers, no chills, no sweats. Past medical history: Bilateral cataract removal Hypertension Hyperlipidemia COPD oxygen dependent at night Spinal stenosis with recommendation to have surgical intervention. He's got compression that causes him to have ataxia. His surgery had been previously scheduled but he ended up with pneumonia and then decided to have the rotator cuff addressed before he has his spinal surgery. Tobacco abuse, last cigarette on 11/05/17. Acute urinary retention requiring straight catheterization in [place] after catheter removal. Social history: Patient lives in [facility] with his . He quit smoking just prior to surgery. He drinks at home every day about 6 shots of blackberry juli from supper to bedtime. Family history: Patient's mother at 102. Patient's father from heart complications when the patient was 7 from rheumatic fever as a child. He is one of 9 children. Right Shoulder Pain Score (Numeric/FACES): 5 - Related Data Allergies/Adverse Reactions: Allergies Allergy/AdvReac Type Severity Reaction Status Date / Time Penicillins Allergy Rash Verified 06/23/17 19:21 Home Medications: Home Meds Albuterol/Ipratropium [DuoNeb 3.0-0.5 MG/3 ML] 3 ml INH QIDRT neb 03/27/16 [Rx] traZODone HCl [Trazodone HCl] 50 mg PO BEDTIME PRN 06/23/17 [History] Acetaminophen [Mapap] 650 mg PO Q6H 11/10/17 [History] Albuterol Sulfate [Proair Hfa] 2 puff IH QID PRN 11/10/17 [History] Albuterol/Ipratropium [DuoNeb 3.0-0.5 MG/3 ML] 3 ml IH QID PRN 11/10/17 [History ] Hydrocodone/Acetaminophen [Hydrocodon-Acetaminophen 5-325] 1 tab PO Q4H PRN [History] Ibuprofen [Advil] 400 mg PO QID PRN 11/10/17 [History] Sennosides/Docusate Sodium [Senna-S] 1 ea PO BID 11/10/17 [History] Simvastatin [Zocor] 10 mg PO BEDTIME 11/10/17 [History] Tamsulosin [Flomax] 0.4 mg PO DAILY 11/10/17 [History] Varenicline [Chantix] 1 mg PO BID 11/10/17 [History] traMADol [Ultram] 50 mg PO QID PRN 11/10/17 [History] Past Medical History HEENT History: Reports: Other (See Below) Other HEENT History: wears glasses Cardiovascular History: Reports: High Cholesterol, Hypertension Respiratory History: Reports: COPD Gastrointestinal History: Reports: Diverticulosis, GERD Musculoskeletal History: Reports: Osteoarthritis, Other (See Below) Other Musculoskeletal History: broke 2 vertebrae in neck 1988; fall muscle tear and strain left leg; scoliosis of lumbar spine Other Neuro History: hx of ataxia Hematologic History: Reports: Anemia - Infectious Disease History Infectious Disease History: Reports: Chicken Pox, Measles, Mumps, Rheumatic Fever, Rubella - Past Surgical History HEENT Surgical History: Reports: Cataract Surgery GI Surgical History: Reports: Colonoscopy, EGD, Hernia, Inguinal Musculoskeletal Surgical History: Reports: Arthroscopic Procedure, Other (See Below) Other Musculoskeletal Surgeries/Procedures:: R. shoulder Social & Family History - Family History Family Medical History: Noncontributory - Tobacco Use Smoking Status *Q: Former Smoker Years of Tobacco use: 60 Packs/Tins Daily: 1 Used Tobacco, but Quit: Yes Month/Year Tobacco Last Used: 09/12 Second Hand Smoke Exposure: No - Caffeine Use Caffeine Use: Reports: Coffee, Soda Other Caffeine Use: 1 1/2 cups in am - Alcohol Use Days Per Week of Alcohol Use: 7 Number of Drinks Per Day: 6 Total Drinks Per Week: 42 Date of Last Drink: 11/05/17 Time of Last Drink: 18:00 - Recreational Drug Use Recreational Drug Use: No H&P Review of Systems - Review of Systems: Review Of Systems: ROS reveals no pertinent complaints other than HPI. Exam - Exam Exam: See Below - Vital Signs Weight: 54.499 kg - Exam General: Alert, Oriented, Cooperative HEENT: PERRLA, Conjunctiva Clear, Mucosa Moist & [place], Posterior Pharynx Clear Neck: Supple Lungs: Clear to Auscultation, Normal Respiratory Effort Cardiovascular: Regular Rate, Regular Rhythm, Normal S1, Normal S2 GI/Abdominal Exam: Normal Bowel Sounds, Soft, Non-Tender, No Distention Back Exam: Normal Inspection, Full Range of Motion Extremities: Normal Inspection, No Pedal Edema Neuro Extensive - Mental Status: Alert, Oriented x3, Normal Mood/Affect, Normal Cognition - Problem List (1) S/P shoulder surgery SNOMED Code(s): 141310706, 88162927, 042294572 ICD Code: Z98.890 - OTHER SPECIFIED POSTPROCEDURAL STATES Status: Acute Current Visit: Yes Problem Details: PT/OT/pain management. Patient appropriate for swing bed status. (2) Acute urinary retention SNOMED Code(s): 715157815 ICD Code: R33.8 - OTHER RETENTION OF URINE Status: Acute Current Visit: Yes Problem Details: Bladder scan 4 times a day and straight catheter if residual volumes greater than 300. Continue Flomax. (3) Ataxia SNOMED Code(s): 12213346 ICD Code: R27.0 - ATAXIA, UNSPECIFIED Status: Acute Current Visit: Yes Problem Details: PT and OT. (4) COPD (chronic obstructive pulmonary disease) SNOMED Code(s): 29000856 ICD Code: J44.9 - CHRONIC OBSTRUCTIVE PULMONARY DISEASE, UNSPECIFIED Status : Acute Current Visit: No Problem Details: Oxygen dependent at night. DuoNeb 's 4 times a day and oxygen when necessary to keep sats between 90 and 95%. Qualifiers: COPD type: emphysema Emphysema type: unspecified Qualified Code(s): J43.9 - Emphysema, unspecified (5) HLD (hyperlipidemia) SNOMED Code(s): 35214866 ICD Code: E78.5 - HYPERLIPIDEMIA, UNSPECIFIED Status: Acute Current Visit : No Problem Details: Continue Zocor. Qualifiers: Hyperlipidemia type: other hyperlipidemia Qualified Code(s): E78.4 - Other hyperlipidemia (6) Tobacco abuse SNOMED Code(s): 054747821 ICD Code: Z72.0 - TOBACCO USE Status: Acute Current Visit: No Problem Details: Continue Chantix. Offered nicotine replacement therapy but patient declined. (7) DVT prophylaxis SNOMED Code(s): 363788847, 859405606 ICD Code: [id number] - Status: Acute Current Visit: Yes Problem Details: Lovenox 40 mg subcutaneous daily. Problem List Initiated/Reviewed/Updated: Yes Orders Last 24hrs: Active Orders 24 hr Category Date Time Status Patient Status [ADT] Routine ADT 11/10/17 16:43 Active Ambulate [RC] PER UNIT ROUTINE Care 11/10/17 16:45 Ordered Bladder Scan [RC] Q4H Care 11/10/17 16:48 Ordered Height and Weight [RC] WEEKLY Care 11/10/17 16:43 Ordered Intake and Output [RC] QSHIFT Care 11/10/17 16:45 Ordered Notify Provider Vital Signs [RC] ASDIRECTED Care 11/10/17 16:45 Ordered Oxygen Therapy [RC] PRN Care 11/10/17 16:43 Ordered RT Aerosol Therapy [RC] ASDIRECTED Care 11/10/17 16:48 Ordered Up With Assistance [RC] ASDIRECTED Care 11/10/17 16:43 Ordered VTE/DVT Education [RC] Per Unit Routine Care 11/10/17 16:43 Ordered Vital Signs [RC] PER UNIT ROUTINE Care 11/10/17 16:43 Ordered OT Evaluation and Treatment [CONS] Routine Cons 11/10/17 16:43 Active PT Evaluation and Treatment [CONS] Routine Cons 11/10/17 16:43 Active 2 Gram Sodium Diet [DIET] Diet 11/10/17 Breakfast Active Acetaminophen [Mapap] Med 11/10/17 17:00 Ordered 650 mg PO Q6H Acetaminophen/HYDROcodone [[place] 325-5 MG] Med 11/10/17 16:48 Ordered 1 tab PO Q4H PRN Albuterol/Ipratropium [DuoNeb 3.0-0.5 MG/3 ML] Med 11/10/17 21:00 Ordered 3 ml NEB QIDRT Docusate Sodium [Colace] Med 11/10/17 16:43 Ordered 100 mg PO BID PRN Docusate Sodium/Sennosides [Senna Plus] Med 11/10/17 21:00 Ordered 1 ea PO BID Enoxaparin [Lovenox] Med 11/11/17 09:00 Ordered 40 mg SUBCUT DAILY Ibuprofen [Motrin] Med 11/10/17 16:48 Ordered 400 mg PO QID PRN Polyethylene Glycol 3350 [MiraLAX] Med 11/10/17 16:43 Ordered 17 gm PO DAILY PRN Simvastatin [Zocor] Med 11/10/17 21:00 Ordered 10 mg PO BEDTIME Tamsulosin [Flomax] Med 11/11/17 09:00 Ordered 0.4 mg PO DAILY Varenicline [Chantix] Med 11/10/17 21:00 Ordered 1 mg PO BID traZODone Med 11/10/17 16:48 Ordered 50 mg PO BEDTIME PRN Sequential Compression Device [OM.PC] Per Unit Routine Oth 11/10/17 16:45 Ordered Resuscitation Status Routine Resus Stat 11/10/17 16:43 Ordered Medication Orders Hydrocodone Bitart/Acetaminophen ([place] 325-5 Mg) 1 tab PO Q4H PRN PRN Reason: MODERATE PAIN Albuterol/Ipratropium (Duoneb 3.0-0.5 Mg/3 Ml) 3 ml NEB QIDRT ANDREI Docusate Sodium (Colace) 100 mg PO BID PRN PRN Reason: Constipation Enoxaparin Sodium (Lovenox) 40 mg SUBCUT DAILY ANDREI Ibuprofen (Motrin) 400 mg PO QID PRN PRN Reason: MODERATE PAIN Non-Formulary Medication (Acetaminophen [Mapap]) 650 mg PO Q6H ANDREI Polyethylene Glycol (Miralax) 17 gm PO DAILY PRN PRN Reason: Constipation Senna/Docusate Sodium (Senna Plus) tab PO BID ANDREI Simvastatin (Zocor) 10 mg PO BEDTIME ANDREI Tamsulosin HCl (Flomax) 0.4 mg PO DAILY ANDREI Trazodone HCl (Trazodone) 50 mg PO BEDTIME PRN PRN Reason: Sleep Varenicline (Chantix) 1 mg PO BID ANDREI Assessment/Plan Comment:: CODE STATUS discussed with the patient on admission. He is a full code. He would want CPR if his heart were to stop beating or he were to stop breathing.
[2017-11-10] MEDS: Acetaminophen Soln 650 MG/20.3 ML UD Cup PO SCH (17:33)
[2017-11-10] MEDS: Albuterol/Ipratropium 3.0-0.5 MG/3 ML Neb Soln NEB SCH ×2 (17:33→20:58)
[2017-11-10] MEDS: Enoxaparin 40 MG/0.4 ML Syringe SUBCUT SCH (21:01)
[2017-11-10] MEDS: Simvastatin 10 MG Tab PO SCH (21:02)
[2017-11-10] MEDS: Acetaminophen/HYDROcodone 325-5 MG Tab PO PRN (21:08)
[2017-11-10] MEDS: traZODone 50 MG Tab PO PRN (21:08)
[2017-11-11] MEDS: Acetaminophen Soln 650 MG/20.3 ML UD Cup PO SCH ×4 (00:07→19:07)
[2017-11-11] MEDS ORDERED: Aluminum Hydroxide/Magnesium Hydroxide Susp 30 ML Cup PO PRN (06:20)
[2017-11-11] MEDS: Ibuprofen 400 MG Tab PO PRN (06:33)
[2017-11-11] MEDS: Albuterol/Ipratropium 3.0-0.5 MG/3 ML Neb Soln NEB SCH ×4 (07:04→20:30)
[2017-11-11] MEDS: Acetaminophen/HYDROcodone 325-5 MG Tab PO PRN ×2 (09:04→20:39)
[2017-11-11] MEDS: Tamsulosin 0.4 MG Cap.ER PO SCH (09:06)
--- NOTE | 2017-11-11 15:57 | PCM.PN ---
- General Info Date of Service: 11/11/17 Subjective Update: Patient is a 77-year-old male admitted yesterday for swing bed on swing bed day #2 for right shoulder rotator cuff reconstruction 11/05/17. Patient was having some dysuria and a urine was sent. Was positive for nitrates, blood, bacteria. Started on Cipro for this. No chest pain, no short missed of breath that's new or above his baseline. No nausea or vomiting. Unhappy with the low-salt diet so switch to a regular diet. Recognizes for his hypertension the recommendation would be low-salt. - Patient Data Vitals - Most Recent: Last Vital Signs Temp 37.0 C 11/11/17 07:20 Pulse 84 11/11/17 15:45 Resp 18 11/11/17 07:20 BP 113/63 11/11/17 07:20 Pulse Ox 94 L 11/11/17 15:45 Weight - Most Recent: 54.499 kg I&O - Last 24 Hours: Intake & Output 11/11/17 11/11/17 11/11/17 06:59 14:59 22:59 Intake Total 600 Output Total 650 Balance -50 Lab Results Last 24 Hours: Laboratory Results - last 24 hr 11/11/17 11/11/17 11/11/17 Range/Units 06:40 06:40 09:10 WBC 10.3 (4.5-12.0) X10-3/uL RBC 3.12 L (4.30-5.75) x10(6)uL Hgb 9.6 L (11.5-15.5) g/dL Hct 28.7 L (30.0-51.3) % MCV 91.8 (80-96) fL MCH 30.8 (27.7-33.6) pg MCHC 33.5 (32.2-35.4) g/dL RDW 14.4 (11.5-15.5) % Plt Count 433 H (125-369) X10(3)uL MPV 7.2 L (7.4-10.4) fL Add Manual Diff Yes Neutrophils % (Manual) 70 (46-82) % Lymphocytes % (Manual) 17 (13-37) % Monocytes % (Manual) 10 (4-12) % Eosinophils % (Manual) 3 (0-5) % Sodium 136 (135-145) mmol/L Potassium 3.9 (3.5-5.3) mmol/L Chloride 99 L (100-110) mmol/L Carbon Dioxide 30 (21-32) mmol/L BUN 21 H D (7-18) mg/dL Creatinine 1.1 (0.70-1.30) mg/dL Est Cr Clr Drug Dosing 42.66 mL/min Estimated GFR (MDRD) > 60 (>60) BUN/Creatinine Ratio 19.1 (9-20) Glucose 118 H (80-116) mg/dL Calcium 9.2 (8.6-10.2) mg/dL Total Bilirubin 0.4 (0.1-1.3) mg/dL AST 25 (5-25) IU/L ALT 37 H (12-36) U/L Alkaline Phosphatase 69 (56-112) IU/L Total Protein 6.4 (6.0-8.0) g/dL Albumin 2.7 L (3.2-4.6) g/dL Globulin 3.7 g/dL Albumin/Globulin Ratio 0.7 Urine Color Yellow (YELLOW) Urine Appearance Cloudy (CLEAR) Urine pH 6.0 (5.0-6.5) Ur Specific [place] 1.015 (1.010-1.025) Urine Protein Negative (NEGATIVE) mg/dL Urine Glucose (UA) Normal (NEGATIVE) mg/dL Urine Ketones Negative (NEGATIVE) mg/dL Urine Occult Blood Moderate H (NEGATIVE) Urine Nitrite Positive H (NEGATIVE) Urine Bilirubin Negative (NEGATIVE) Urine Urobilinogen Normal (NEGATIVE) mg/dL Ur Leukocyte Esterase Large H (NEGATIVE) Urine RBC 5-10 (0) Urine WBC >100 H (0) Ur Squamous Epith Cells Few H (NS,R,O) Urine Bacteria Many H (NS) Med Orders - Current: Current Medications Acetaminophen (Tylenol) 650 mg PO Q6H ANDREI Last Admin: 11/11/17 12:46 Dose: 650 mg Hydrocodone Bitart/Acetaminophen ([place] 325-5 Mg) 1 tab PO Q4H PRN PRN Reason: MODERATE PAIN Last Admin: 11/11/17 09:04 Dose: 1 tab Al Hydroxide/Mg Hydroxide (Mag-Al Susp) 30 ml PO Q2H PRN PRN Reason: Heartburn Last Admin: 11/11/17 06:33 Dose: 30 ml Albuterol/Ipratropium (Duoneb 3.0-0.5 Mg/3 Ml) 3 ml NEB QIDRT [facility] Last Admin: 11/11/17 15:31 Dose: 3 ml Ciprofloxacin (Ciprofloxacin Hcl) 250 mg PO BID [facility] Docusate Sodium (Colace) 100 mg PO BID PRN PRN Reason: Constipation Enoxaparin Sodium (Lovenox) 40 mg SUBCUT Q24H [facility] Last Admin: 11/10/17 21:01 Dose: 40 mg Ibuprofen (Motrin) 400 mg PO QID PRN PRN Reason: MODERATE PAIN Last Admin: 11/11/17 06:33 Dose: 400 mg Polyethylene Glycol (Miralax) 17 gm PO DAILY PRN PRN Reason: Constipation Senna/Docusate Sodium (Senna Plus) 1 tab PO BID [facility] Last Admin: 11/11/17 09:06 Dose: 1 tab Simvastatin (Zocor) 10 mg PO BEDTIME [facility] Last Admin: 11/10/17 21:02 Dose: 10 mg Tamsulosin HCl (Flomax) 0.4 mg PO DAILY [facility] Last Admin: 11/11/17 09:06 Dose: 0.4 mg Trazodone HCl (Trazodone) 50 mg PO BEDTIME PRN PRN Reason: Sleep Last Admin: 11/10/17 21:08 Dose: 50 mg Discontinued Medications Varenicline (Chantix) 1 mg PO BID [facility] Last Admin: 11/11/17 15:53 Dose: Not Given - Exam General: Alert, Oriented, Cooperative, No Acute Distress HEENT: Pupils Equal, Pupils Reactive Neck: Supple Lungs: Clear to Auscultation, Normal Respiratory Effort, Wheezing (Mild) Cardiovascular: Regular Rate, Regular Rhythm, No Murmurs GI/Abdominal Exam: Normal Bowel Sounds, Soft, Non-Tender, No Distention Extremities: No Pedal Edema - Problem List & Annotations (1) S/P shoulder surgery SNOMED Code(s): 159163181, 28224932, 535993015 Code(s): Z98.890 - OTHER SPECIFIED POSTPROCEDURAL STATES Status: Acute Current Visit: Yes Annotation/Comment:: PT/OT/pain management. Patient appropriate for swing bed status. (2) Acute urinary retention SNOMED Code(s): 940347492 Code(s): R33.8 - OTHER RETENTION OF URINE Status: Acute Current Visit: Yes Annotation/Comment:: Bladder scan 4 times a day and straight catheter if residual volumes greater than 300. Continue Flomax. (3) Ataxia SNOMED Code(s): 73628090 Code(s): R27.0 - ATAXIA, UNSPECIFIED Status: Acute Current Visit: Yes Annotation/Comment:: PT and OT. (4) COPD (chronic obstructive pulmonary disease) SNOMED Code(s): 55714212 Code(s): J44.9 - CHRONIC OBSTRUCTIVE PULMONARY DISEASE, UNSPECIFIED Status : Acute Current Visit: No Qualifiers: COPD type: emphysema Emphysema type: unspecified Qualified Code(s): J43.9 - Emphysema, unspecified Annotation/Comment:: Oxygen dependent at night. DuoNeb's 4 times a day and oxygen when necessary to keep sats between 90 and 95%. (5) HLD (hyperlipidemia) SNOMED Code(s): 72759497 Code(s): E78.5 - HYPERLIPIDEMIA, UNSPECIFIED Status: Acute Current Visit : No Qualifiers: Hyperlipidemia type: other hyperlipidemia Qualified Code(s): E78.4 - Other hyperlipidemia Annotation/Comment:: Continue Zocor. (6) Tobacco abuse SNOMED Code(s): 457224581 Code(s): Z72.0 - TOBACCO USE Status: Acute Current Visit: No Annotation /Comment:: Chantix caused bad dreams last night so patient declined to continue it. Offered nicotine replacement therapy but patient declined. (7) DVT prophylaxis SNOMED Code(s): 470234585, 641432512 Code(s): ZAU8267 - Status: Acute Current Visit: Yes Annotation/Comment :: Lovenox 40 mg subcutaneous daily. (8) UTI (urinary tract infection) SNOMED Code(s): 93259962 Code(s): N39.0 - URINARY TRACT INFECTION, SITE NOT SPECIFIED Status: Acute Current Visit: Yes Annotation/Comment:: Patient was having retention was straight catheterization in [place]. Likely etiology. Treat with Cipro 250 mg by mouth twice a day 7 days. - Problem List Review Problem List Initiated/Reviewed/Updated: Yes - My Orders Last 24 Hours: My Active Orders 11/10/17 16:43 Patient Status [ADT] Routine Height and Weight [RC] .q friday Oxygen Therapy [RC] PRN Up With Assistance [RC] ASDIRECTED VTE/DVT Education [RC] Per Unit Routine Vital Signs [RC] 08 OT Evaluation and Treatment [CONS] Routine PT Evaluation and Treatment [CONS] Routine Docusate Sodium [Colace] 100 mg PO BID PRN Polyethylene Glycol 3350 [MiraLAX] 17 gm PO DAILY PRN Resuscitation Status Routine 11/10/17 16:45 Ambulate [RC] 09,13,17,21 Intake and Output [RC] 06,14,22 Notify Provider Vital Signs [RC] ASDIRECTED Sequential Compression Device [OM.PC] Per Unit Routine 11/10/17 16:48 Bladder Scan [RC] 04,08,12,16,20,00 RT Aerosol Therapy [RC] ASDIRECTED Acetaminophen/HYDROcodone [[place] 325-5 MG] 1 tab PO Q4H PRN Ibuprofen [Motrin] 400 mg PO QID PRN traZODone 50 mg PO BEDTIME PRN 11/10/17 17:00 Albuterol/Ipratropium [DuoNeb 3.0-0.5 MG/3 ML] 3 ml NEB QIDRT 11/10/17 18:00 Acetaminophen [Tylenol] 650 mg PO Q6H 11/10/17 21:00 Docusate Sodium/Sennosides [Senna Plus] 1 tab PO BID Enoxaparin [Lovenox] 40 mg SUBCUT Q24H Simvastatin [Zocor] 10 mg PO BEDTIME 11/11/17 08:11 IS (RT) [RT Incentive Spirometry] [RC] ASDIRECTED 11/11/17 09:00 Tamsulosin [Flomax] 0.4 mg PO DAILY 11/11/17 14:40 CULTURE URINE [RM] Routine 11/11/17 14:45 Ciprofloxacin [Ciprofloxacin HCl] 250 mg PO BID - Plan Plan:: CODE STATUS discussed with the patient on admission. He is a full code. He would want CPR if his heart were to stop beating or he were to stop breathing.
[2017-11-11] MEDS: Ciprofloxacin 250 MG Tab PO SCH (17:13)
[2017-11-11] MEDS: Enoxaparin 40 MG/0.4 ML Syringe SUBCUT SCH (20:30)
[2017-11-11] MEDS: Simvastatin 10 MG Tab PO SCH (20:30)
[2017-11-11] MEDS: traZODone 50 MG Tab PO PRN (21:54)
[2017-11-12] MEDS: Acetaminophen Soln 650 MG/20.3 ML UD Cup PO SCH ×2 (00:01→05:37)
[2017-11-12] MEDS: Albuterol/Ipratropium 3.0-0.5 MG/3 ML Neb Soln NEB SCH ×4 (07:32→21:25)
[2017-11-12] MEDS: Acetaminophen/HYDROcodone 325-5 MG Tab PO PRN (08:19)
[2017-11-12] MEDS: Ciprofloxacin 250 MG Tab PO SCH ×2 (08:21→21:24)
[2017-11-12] MEDS: Tamsulosin 0.4 MG Cap.ER PO SCH (08:21)
[2017-11-12] MEDS: Ibuprofen 400 MG Tab PO PRN (11:24)
[2017-11-12] MEDS ORDERED: Acetaminophen 325 MG Tab PO PRN (12:33)
[2017-11-12] MEDS ORDERED: Polyethylene Glycol 3350 Powder 17 GM Packet PO PRN (12:41)
[2017-11-12] MEDS: oxyCODONE 5 MG Tab PO PRN ×3 (12:42→21:26)
--- NOTE | 2017-11-12 14:41 | PCM.PN ---
- General Info Date of Service: 11/12/17 Subjective Update: Patient is a 77-year-old male admitted yesterday for swing bed on swing bed day #3 for right shoulder rotator cuff reconstruction 11/05/17. No chest pain, no shortness of breath that's new or above his baseline. No nausea or vomiting. Pain still not well controlled. - Patient Data Vitals - Most Recent: Last Vital Signs Temp 36.9 C 11/12/17 07:50 Pulse 80 11/12/17 11:12 Resp 12 11/12/17 07:50 BP 122/71 11/12/17 07:50 Pulse Ox 95 11/12/17 11:12 Weight - Most Recent: 54.499 kg I&O - Last 24 Hours: Intake & Output 11/11/17 11/12/17 11/12/17 22:59 06:59 14:59 Intake Total 50 60 Output Total 450 1100 300 Balance -400 -1040 -300 Deangelo Results Last 24 Hours: Microbiology 11/11/17 09:10 Urine Culture - Preliminary Urine, Clean Catch Gram Negative Rods Med Orders - Current: Current Medications Acetaminophen (Tylenol) 650 mg PO Q4H PRN PRN Reason: Pain (Mild 1-3)/fever Al Hydroxide/Mg Hydroxide (Mag-Al Susp) 30 ml PO Q2H PRN PRN Reason: Heartburn Last Admin: 11/11/17 06:33 Dose: 30 ml Albuterol/Ipratropium (Duoneb 3.0-0.5 Mg/3 Ml) 3 ml NEB QIDRT [facility] Last Admin: 11/12/17 11:12 Dose: 3 ml Ciprofloxacin (Ciprofloxacin Hcl) 250 mg PO BID [facility] Last Admin: 11/12/17 08:21 Dose: 250 mg Docusate Sodium (Colace) 100 mg PO BID PRN PRN Reason: Constipation Enoxaparin Sodium (Lovenox) 40 mg SUBCUT Q24H [facility] Last Admin: 11/11/17 21:40 Dose: 40 mg Ibuprofen (Motrin) 400 mg PO QID PRN PRN Reason: MODERATE PAIN Last Admin: 11/12/17 11:24 Dose: 400 mg Oxycodone HCl (Oxycodone) 5 mg PO Q3H PRN PRN Reason: Pain Last Admin: 11/12/17 12:42 Dose: 5 mg Polyethylene Glycol (Miralax) 17 gm PO DAILY PRN PRN Reason: Constipation Polyethylene Glycol (Miralax) 17 gm PO BEDTIME PRN PRN Reason: Constipation Senna/Docusate Sodium (Senna Plus) 1 tab PO BID [facility] Last Admin: 11/12/17 08:22 Dose: 1 tab Simvastatin (Zocor) 10 mg PO BEDTIME [facility] Last Admin: 11/11/17 21:40 Dose: 10 mg Tamsulosin HCl (Flomax) 0.4 mg PO DAILY [facility] Last Admin: 11/12/17 08:21 Dose: 0.4 mg Trazodone HCl (Trazodone) 50 mg PO BEDTIME PRN PRN Reason: Sleep Last Admin: 11/11/17 21:54 Dose: 50 mg Discontinued Medications Acetaminophen (Tylenol) 650 mg PO Q6H [facility] Last Admin: 11/12/17 05:37 Dose: 650 mg Hydrocodone Bitart/Acetaminophen ([place] 325-5 Mg) 1 tab PO Q4H PRN PRN Reason: MODERATE PAIN Last Admin: 11/12/17 08:19 Dose: 1 tab Varenicline (Chantix) 1 mg PO BID [facility] Last Admin: 11/11/17 15:53 Dose: Not Given - Exam General: Alert, Oriented, Cooperative, No Acute Distress HEENT: Pupils Equal, Pupils Reactive Neck: Supple Lungs: Clear to Auscultation, Normal Respiratory Effort Cardiovascular: Regular Rate, Regular Rhythm, No Murmurs GI/Abdominal Exam: Normal Bowel Sounds, Soft, Non-Tender, No Distention Extremities: No Pedal Edema Neurological: Other (I observed the patient transfer today because he's been having some much difficulty with gait. He has a very antalgic gait but he doesn' t have any tardive dyskinesia or writhing motions. The big issue for him is that he has no way to stabilize himself on the right and really struggles to maintain his balance. He is not going to be safe to return home until he can either demonstrate stability with a walker and put some weight on that right arm or if he has always been assist of one at home. I do not see any way he could safely navigate stairs at this time.) Psy/Mental Status: Alert, Normal Affect, Normal Mood - Problem List & Annotations (1) S/P shoulder surgery SNOMED Code(s): 816135539, 88976423, 524412011 Code(s): Z98.890 - OTHER SPECIFIED POSTPROCEDURAL STATES Status: Acute Current Visit: Yes Annotation/Comment:: PT/OT/pain management. Patient appropriate for swing bed status. Patient has requested oxycodone and Tylenol and [place] were discontinued at patient request. Did discuss that this had previously made him confused and he does not recall that. Explained to him that this is very common. (2) Acute urinary retention SNOMED Code(s): 042050822 Code(s): R33.8 - OTHER RETENTION OF URINE Status: Acute Current Visit: Yes Annotation/Comment:: Bladder scan 4 times a day and straight catheter if residual volumes greater than 300. Continue Flomax. (3) Ataxia SNOMED Code(s): 58804104 Code(s): R27.0 - ATAXIA, UNSPECIFIED Status: Acute Current Visit: Yes Annotation/Comment:: PT and OT. Patient unable to navigate stairs safely at this point. Would not be able to transfer without 1 assist. (4) COPD (chronic obstructive pulmonary disease) SNOMED Code(s): 29224025 Code(s): J44.9 - CHRONIC OBSTRUCTIVE PULMONARY DISEASE, UNSPECIFIED Status : Acute Current Visit: No Qualifiers: COPD type: emphysema Emphysema type: unspecified Qualified Code(s): J43.9 - Emphysema, unspecified Annotation/Comment:: Oxygen dependent at night. DuoNeb's 4 times a day and oxygen when necessary to keep sats between 90 and 95%. (5) HLD (hyperlipidemia) SNOMED Code(s): 90162859 Code(s): E78.5 - HYPERLIPIDEMIA, UNSPECIFIED Status: Acute Current Visit : No Qualifiers: Hyperlipidemia type: other hyperlipidemia Qualified Code(s): E78.4 - Other hyperlipidemia Annotation/Comment:: Continue Zocor. (6) Tobacco abuse SNOMED Code(s): 525021802 Code(s): Z72.0 - TOBACCO USE Status: Acute Current Visit: No Annotation /Comment:: Chantix caused bad dreams last night so patient declined to continue it. Offered nicotine replacement therapy but patient declined. (7) DVT prophylaxis SNOMED Code(s): 105020874, 562329269 Code(s): LMT7824 - Status: Acute Current Visit: Yes Annotation/Comment :: Lovenox 40 mg subcutaneous daily. (8) UTI (urinary tract infection) SNOMED Code(s): 12632793 Code(s): N39.0 - URINARY TRACT INFECTION, SITE NOT SPECIFIED Status: Acute Current Visit: Yes Annotation/Comment:: Patient was having retention, was straight cathed in [place]. Likely etiology. Treat with Cipro 250 mg by mouth twice a day 7 days which would be last day Friday. - Problem List Review Problem List Initiated/Reviewed/Updated: Yes - My Orders Last 24 Hours: My Active Orders 11/11/17 14:45 Ciprofloxacin [Ciprofloxacin HCl] 250 mg PO BID 11/12/17 12:32 oxyCODONE 5 mg PO Q3H PRN 11/12/17 12:33 Acetaminophen [Tylenol] 650 mg PO Q4H PRN 11/12/17 12:41 Polyethylene Glycol 3350 [MiraLAX] 17 gm PO BEDTIME PRN - Plan Plan:: CODE STATUS discussed with the patient on admission. He is a full code. He would want CPR if his heart were to stop beating or he were to stop breathing.
[2017-11-12] MEDS: Enoxaparin 40 MG/0.4 ML Syringe SUBCUT SCH (21:25)
[2017-11-12] MEDS: Simvastatin 10 MG Tab PO SCH (21:25)
[2017-11-12] MEDS: traZODone 50 MG Tab PO PRN (22:32)
[2017-11-13] MEDS: Albuterol/Ipratropium 3.0-0.5 MG/3 ML Neb Soln NEB SCH ×4 (07:11→21:03)
[2017-11-13] MEDS: oxyCODONE 5 MG Tab PO PRN ×3 (07:26→19:52)
[2017-11-13] MEDS: Tamsulosin 0.4 MG Cap.ER PO SCH (08:32)
[2017-11-13] MEDS: Ibuprofen 400 MG Tab PO PRN ×3 (08:43→21:01)
[2017-11-13] MEDS: Ciprofloxacin 250 MG Tab PO SCH ×2 (08:44→21:02)
[2017-11-13] MEDS: Enoxaparin 40 MG/0.4 ML Syringe SUBCUT SCH (21:03)
[2017-11-13] MEDS: Simvastatin 10 MG Tab PO SCH (21:03)
[2017-11-13] MEDS: traZODone 50 MG Tab PO PRN (22:09)
[2017-11-14] MEDS: oxyCODONE 5 MG Tab PO PRN ×4 (05:53→21:06)
[2017-11-14] MEDS: Ibuprofen 400 MG Tab PO PRN ×3 (05:57→21:06)
[2017-11-14] MEDS: Albuterol/Ipratropium 3.0-0.5 MG/3 ML Neb Soln NEB SCH ×4 (07:05→20:46)
[2017-11-14] MEDS: Tamsulosin 0.4 MG Cap.ER PO SCH (08:00)
[2017-11-14] MEDS: Ciprofloxacin 250 MG Tab PO SCH ×2 (08:00→20:46)
[2017-11-14] MEDS: Enoxaparin 40 MG/0.4 ML Syringe SUBCUT SCH (20:46)
[2017-11-14] MEDS: Simvastatin 10 MG Tab PO SCH (20:47)
[2017-11-14] MEDS: traZODone 50 MG Tab PO PRN (22:00)
[2017-11-15] MEDS: Ibuprofen 400 MG Tab PO PRN ×3 (04:39→17:19)
[2017-11-15] MEDS: oxyCODONE 5 MG Tab PO PRN ×3 (04:40→21:39)
[2017-11-15] MEDS: Albuterol/Ipratropium 3.0-0.5 MG/3 ML Neb Soln NEB SCH ×4 (07:06→20:35)
[2017-11-15] MEDS: Tamsulosin 0.4 MG Cap.ER PO SCH (08:46)
[2017-11-15] MEDS: Ciprofloxacin 250 MG Tab PO SCH ×2 (08:46→20:35)
[2017-11-15] MEDS: Enoxaparin 40 MG/0.4 ML Syringe SUBCUT SCH (20:36)
[2017-11-15] MEDS: Simvastatin 10 MG Tab PO SCH (20:36)
[2017-11-15] MEDS: traZODone 50 MG Tab PO PRN (21:40)
[2017-11-16] MEDS: Ibuprofen 400 MG Tab PO PRN ×4 (02:10→21:15)
[2017-11-16] MEDS: oxyCODONE 5 MG Tab PO PRN ×4 (02:13→21:15)
[2017-11-16] MEDS: Albuterol/Ipratropium 3.0-0.5 MG/3 ML Neb Soln NEB SCH ×4 (07:08→21:13)
[2017-11-16] MEDS: Tamsulosin 0.4 MG Cap.ER PO SCH (08:20)
[2017-11-16] MEDS: Ciprofloxacin 250 MG Tab PO SCH ×2 (08:20→21:12)
[2017-11-16] MEDS: Enoxaparin 40 MG/0.4 ML Syringe SUBCUT SCH (21:13)
[2017-11-16] MEDS: Simvastatin 10 MG Tab PO SCH (21:14)
[2017-11-16] MEDS: traZODone 50 MG Tab PO PRN (21:16)
[2017-11-17] MEDS: Ibuprofen 400 MG Tab PO PRN (04:53)
[2017-11-17] MEDS: oxyCODONE 5 MG Tab PO PRN (04:53)
[2017-11-17] MEDS: Albuterol/Ipratropium 3.0-0.5 MG/3 ML Neb Soln NEB SCH (07:05)
[2017-11-17] MEDS ORDERED: Tuberculin, PPD 5 Units/0.1 ML 1 ML MDV IDERM ONE ×2 (08:00→09:07)
[2017-11-17] MEDS: Ciprofloxacin 250 MG Tab PO SCH (08:24)
[2017-11-17] MEDS: Tamsulosin 0.4 MG Cap.ER PO SCH (08:24)
[2017-11-17 12:27] VITALS: BP 110/58
--- NOTE | 2017-11-17 13:59 | DISCH ---
DISCHARGE DATE: 11/17/2017 REASON FOR ADMISSION: 1. Physical rehabilitation. 2. Ataxia of unknown reason. 3. Urinary retention due to benign prostatic hyperplasia. 4. Urinary tract infection. 5. Status post shoulder reconstruction on November 05, 2017. 6. Chronic obstructive pulmonary disease. 7. Chronic medical conditions including hypertension, hyperlipidemia, and spinal stenosis. BRIEF HISTORY AND HOSPITAL COURSE: This is a 77-year-old male who was admitted from [facility] after shoulder reconstruction on November 05, 2017. He had issues with pain management while here and hydrocodone was discontinued and oxycodone was started, which he was using up to 5 mg five times a day. He was also on DuoNeb for COPD and finished ciprofloxacin, 7 days, for urinary tract infection. Because he still needs assistance, he was discharged to the half-way to continue physical and occupational therapy. DISCHARGE MEDICATIONS: 1. Oxycodone 5 mg four times a day p.r.n. 2. Magnesium hydroxide. 3. Tylenol. 4. Zocor 10 mg a day. 5. Flomax 0.4 mg daily. 6. Trazodone 50 mg at bedtime p.r.n. FOLLOWUP: He will see his primary care physician at the half-way. Continue with therapy. Please note that I spent more than 35 minutes in the discharge of this patient. /[id number] BRANDI/CHARBEL
== END 2017-11-17 10:30 | DRG 560 ==
LOC: FB.MS 15:27
PROVIDERS: ADMIT Family Medicine; ATTEND Family Medicine
DX: Z47.89 Encounter for other orthopedic aftercare (principal); N39.0 Urinary tract infection, site not specified; G11.9 Hereditary ataxia, unspecified; R53.1 Weakness; R53.81 Other malaise; N40.1 Benign prostatic hyperplasia with lower urinary tract symptoms; R33.8 Other retention of urine; I10 Essential (primary) hypertension; E78.5 Hyperlipidemia, unspecified; R09.02 Hypoxemia; G89.18 Other acute postprocedural pain; E78.00 Pure hypercholesterolemia, unspecified; K21.9 Gastro-esophageal reflux disease without esophagitis; K57.90 Diverticulosis of intestine, part unspecified, without perforation or abscess without bleeding; M19.90 Unspecified osteoarthritis, unspecified site; D64.9 Anemia, unspecified; M48.062 Spinal stenosis, lumbar region with neurogenic claudication; J43.9 Emphysema, unspecified; Z96.1 Presence of intraocular lens; Z79.899 Other long term (current) drug therapy; Z99.81 Dependence on supplemental oxygen; Z87.891 Personal history of nicotine dependence; Z88.0 Allergy status to penicillin
CPT/HCPCS: 36415; 51798; 80053; 81001; 85025; 86580; 87086; 87088; 87186; 94150; 94640; 97116-GP; 97161-GP; 97165-GO; 97530-GO; 97530-GP; 97535-GO; A9270-GY; J1650; J7620

== ENCOUNTER 2019-04-11 21:40 | Inpatient (IN) | payer MEDICARE, OTHER ==
--- NOTE | 2019-04-11 22:03 | EDM.PDOC ---
ED HPI GENERAL MEDICAL PROBLEM - General Chief Complaint: Drug or Alcohol Abuse Stated Complaint: HALLUCINATIONS Time Seen by Provider: 04/11/19 21:45 Source of Information: Reports: Patient, EMS, Family History Limitations: Reports: Altered Mental Status - History of Present Illness INITIAL COMMENTS - FREE TEXT/NARRATIVE: pt comes from home by EMS with his son also with agitation, restlessness and visual hallucinations this evening, pt on arival is alert with stable vitals, he has long Hx of alcoholism and recurrent DTs, he has also Hx of chronic pain and on scheduled Percocet. pt at this time is aler and follows simple commands but appear very restless, report Hx of frequent falls including a fall with head injury yesterday, denies chest pain resp sx or GI sx, indicate that he has chronic pain and he hurts all over all the time, report last alcoholic drink was yesterday evening. - Related Data Allergies Allergy/AdvReac Type Severity Reaction Status Date / Time Penicillins Allergy Rash Verified 04/11/19 22:27 Home Meds: Home Meds . [Unable to Verify Home Med List] 04/11/19 [History] Past Medical History HEENT History: Reports: Other (See Below) Other HEENT History: wears glasses Cardiovascular History: Reports: High Cholesterol, Hypertension Respiratory History: Reports: COPD Gastrointestinal History: Reports: Diverticulosis, GERD Musculoskeletal History: Reports: Osteoarthritis, Other (See Below) Other Musculoskeletal History: broke 2 vertebrae in neck 1988; fall muscle tear and strain left leg; scoliosis of lumbar spine Other Neuro History: hx of ataxia Hematologic History: Reports: Anemia - Infectious Disease History Infectious Disease History: Reports: Chicken Pox, Measles, Mumps, Rheumatic Fever, Rubella - Past Surgical History HEENT Surgical History: Reports: Cataract Surgery GI Surgical History: Reports: Colonoscopy, EGD, Hernia, Inguinal Musculoskeletal Surgical History: Reports: Arthroscopic Procedure, Other (See Below) Other Musculoskeletal Surgeries/Procedures:: R. shoulder Social & Family History - Family History Family Medical History: Noncontributory - Caffeine Use Caffeine Use: Reports: Coffee, Soda Other Caffeine Use: 1 1/2 cups in am ED ROS GENERAL - Review of Systems Review Of Systems: See Below Constitutional: Denies: Fever, Chills HEENT: Reports: No Symptoms Respiratory: Reports: No Symptoms Cardiovascular: Reports: No Symptoms GI/Abdominal: Reports: No Symptoms : Reports: No Symptoms Musculoskeletal: Reports: Shoulder Pain, Arm Pain, Back Pain, Leg Pain, Muscle Pain, Other (pt has chronic pain syndrom. ) Skin: Reports: Bruising Neurological: Reports: Confusion, Tremors. Denies: Headache, Numbness, Trouble Speaking Psychiatric: Reports: Agitation, Anxiety, Hallucinations. Denies: Homicidal Ideation, Suicidal Ideation ED EXAM, GENERAL - Physical Exam Exam: See Below Exam Limited By: Altered Mental Status General Appearance: Anxious, Mild Distress Eye Exam: Bilateral Eye: Normal Inspection Ears: Normal TMs Throat/Mouth: Normal Inspection, Normal Oropharynx Head: Atraumatic, Normocephalic Neck: Normal Inspection Respiratory/Chest: No Respiratory Distress, Lungs Clear, Normal Breath Sounds Cardiovascular: Normal Peripheral Pulses, Regular Rate, Rhythm, No Murmur GI/Abdominal: Normal Bowel Sounds, Soft, Non-Tender Back Exam: Normal Inspection, Full Range of Motion Extremities: Normal Inspection, Normal Range of Motion, Normal Capillary Refill Neurological: Alert, No Motor/Sensory Deficits, Confused Psychiatric: Anxious Skin Exam: Warm, Dry Course - Vital Signs Text/Narrative:: pt became very delirious and restless here ater ativan while awaiting for lab results, and he is settling now down with Valium , will go ahead with the head CT ( because of reported head injury yestarday ) once pt is more cooperative. labs results were reviewed with pt family. will have pt admitted for DT and acute alcohol withdrawal. he will be monitored closely and placed on CIWA protocol. - Orders/Labs/Meds Orders: Active Orders 24 hr Category Date Time Status Head wo Cont [CT] Stat Exams 04/11/19 22:06 Ordered DRUG SCREEN, URINE ALERE [URCHEM] Stat Lab 04/11/19 22:06 Ordered UA W/MICROSCOPIC [URIN] Stat Lab 04/11/19 22:06 Ordered Sodium Chloride 0.9% [Normal Saline] 1,000 ml Med 04/11/19 22:06 Active IV .BOLUS Medication Orders Sodium Chloride (Normal Saline) 1,000 mls @ 500 drops/hr IV .BOLUS ONE Stop: 04/13/19 04:05 Labs: Laboratory Tests 04/11/19 04/11/19 04/11/19 Range/Units 22:28 22:28 22:28 WBC 11.0 (4.5-12.0) X10-3/uL RBC 3.79 L (4.30-5.75) x10(6)uL Hgb 11.7 L (13.5-17.8) g/dL Hct 35.1 (30.0-51.3) % MCV 92.7 (80-96) fL MCH 31.0 (27.7-33.6) pg MCHC 33.4 (32.2-35.4) g/dL RDW 14.6 (11.5-15.5) % Plt Count 546 H (125-369) X10(3)uL MPV 6.0 L (7.4-10.4) fL Neut % (Auto) 68.2 (46-82) % Lymph % (Auto) 17.2 (13-37) % [place] % (Auto) 9.7 (4-12) % Eos % (Auto) 2 (1.0-5.0) % Baso % (Auto) 3 H (0-2) % Neut # (Auto) 7.4 (1.6-8.3) # Lymph # (Auto) 1.9 (0.6-5.0) # [place] # (Auto) 1.1 (0.0-1.3) # Eos # (Auto) 0.3 (0.0-0.8) # Baso # (Auto) 0.3 H (0.0-0.2) # Sodium 141 (135-145) mmol/L Potassium 3.9 (3.5-5.3) mmol/L Chloride 101 (100-110) mmol/L Carbon Dioxide 31 (21-32) mmol/L BUN 25 H (7-18) mg/dL Creatinine 1.4 H (0.70-1.30) mg/dL Est Cr Clr Drug Dosing TNP Estimated GFR (MDRD) 49 L (>60) BUN/Creatinine Ratio 17.9 (9-20) Glucose 108 (80-116) mg/dL Calcium 9.5 (8.6-10.2) mg/dL Total Bilirubin 0.5 (0.1-1.3) mg/dL AST 44 H D (5-25) IU/L ALT 36 (12-36) U/L Alkaline Phosphatase 84 (56-112) IU/L Total Protein 7.0 (6.0-8.0) g/dL Albumin 3.6 (3.2-4.6) g/dL Globulin 3.4 g/dL Albumin/Globulin Ratio 1.1 Ethyl Alcohol < 0.03 (<0.03) % Meds: Medications Generic Name Dose Route Start Last Admin Trade Name Freq PRN Reason Stop Dose Admin Sodium Chloride 1,000 mls @ 500 drops/hr 04/11/19 22:06 Normal Saline IV 04/13/19 04:05 .BOLUS ONE Discontinued Medications Generic Name Dose Route Start Last Admin Trade Name Freq PRN Reason Stop Dose Admin Lorazepam 2 mg 04/11/19 22:06 Ativan IVPUSH 04/11/19 22:07 ONETIME ONE Departure - Departure Time of Disposition: 23:07 Disposition: Admitted As Inpatient 65 Clinical Impression: Alcohol withdrawal - Discharge Information Forms: ED Department Discharge Sepsis Event Note - Focused Exam Date Exam was Performed: 04/11/19 Time Exam was Performed: 23:03 - My Orders Last 24 Hours: My Active Orders 04/11/19 22:06 Head wo Cont [CT] Stat DRUG SCREEN, URINE ALERE [URCHEM] Stat UA W/MICROSCOPIC [URIN] Stat Sodium Chloride 0.9% [Normal Saline] 1,000 ml IV .BOLUS - Assessment/Plan Last 24 Hours: My Active Orders 04/11/19 22:06 Head wo Cont [CT] Stat DRUG SCREEN, URINE ALERE [URCHEM] Stat UA W/MICROSCOPIC [URIN] Stat Sodium Chloride 0.9% [Normal Saline] 1,000 ml IV .BOLUS
[2019-04-11] MEDS ORDERED: LORazepam 2 MG/ML SDV IVPUSH ONE (22:06)
[2019-04-11] MEDS ORDERED: Sodium Chloride 0.9% 1,000 ML IV ONE (22:06)
[2019-04-11] MEDS ORDERED: diazePAM 5 MG/ML MDV ONE (23:02)
[2019-04-11] MEDS: diazePAM 5 MG/ML MDV IV PRN (23:05)
[2019-04-12] MEDS: diazePAM 5 MG/ML MDV IV PRN (05:00)
[2019-04-12] MEDS: Sodium Chloride 0.9% 1,000 ML IV SCH ×2 (05:05→12:23)
[2019-04-12] MEDS ORDERED: Albuterol/Ipratropium 3.0-0.5 MG/3 ML Neb Soln INH PRN (11:09)
[2019-04-12] MEDS ORDERED: Azithromycin 500 MG Tab PO SCH (11:15)
[2019-04-12] MEDS ORDERED: oxyCODONE 5 MG Tab PO PRN (11:30)
[2019-04-12] MEDS ORDERED: Ondansetron 4 MG Tab.DIS PO PRN (11:35)
[2019-04-12] MEDS ORDERED: Thiamine 100 MG Tab PO ONE (11:57)
[2019-04-12] MEDS ORDERED: Folic Acid 1 MG Tab PO SCH (12:00)
[2019-04-12] MEDS ORDERED: Multivitamin Tab PO SCH (12:00)
--- NOTE | 2019-04-12 12:15 | CT ---
INDICATION: Fall with head injury. CT HEAD WITHOUT CONTRAST: Spiral 3.75 mm axial images were obtained through the brain with sagittal and coronal reconstructions 04/12/2019 - no comparisons. Total exam DLP was 1399.62 mGy-cm. Nasal bones are deviated to the right, likely due to previous trauma or developmental. Orbits appear to be intact. No definite cranial abnormality was seen. Mastoid air cells appear to be well aerated. There are some thickened linings in the ethmoidal air cells, likely on a chronic basis. No shift of midline structures was seen, except for very minimal left shift at the level of the body of the lateral ventricles of questionable significance. The ventricles are enlarged compatible with central atrophy. Cortical sulci are prominent on the right compatible with cortical atrophy there. Minimal calcifications noted internal carotid arteries. No bleeding site or hematoma was seen. There is some minimal periventricular white matter decreased density compatible with minimal microvascular disease. IMPRESSION: 1. No acute intracranial abnormality. 2. Cerebral vascular disease with minimal microvascular disease type changes - correlate clinically as other course of leukoencephalopathy cannot be excluded. 3. Central atrophy. 4. Right cortical atrophy. 5. Minimal thickening of linings ethmoidal air cells likely chronic. Report called to Dr. Toth at 10:20 hours. [facility]
--- NOTE | 2019-04-12 12:56 | PCM.HP.2 ---
H&P History of Present Illness - General Date of Service: 04/12/19 Admit Problem/Dx: Admission Diagnosis/Problem Admission Diagnosis/Problem Alcohol withdrawal delirium Source of Information: Provider - History of Present Illness Initial Comments - Free Text/Narative: pt comes from home by EMS with his son also with agitation, restlessness and visual hallucinations this evening, pt on arrival is alert with stable vitals, he has long Hx of alcoholism and recurrent DTs, he has also Hx of chronic pain and on scheduled Percocet. pt at this time is alert and follows simple commands but appear very restless, report Hx of frequent falls including a fall with head injury Friday, denies chest pain resp sx or GI sx, indicate that he has chronic pain and he hurts all over all the time, report last alcoholic drink was Friday evening. Had a TENS stimulator placed about 10 days ago, on prophylactic azithromycin Fri, , Fri. Patient had ativan last night agitation was worse. Required 2 doses of Valium 10 mg before he settled and was able to be moved to the floor. CT head was ordered in ER but due to his agitation was not able to be performed. Information from ER provider as patient is sleeping and not able to answer questions. right shoulder Pain Score (Numeric/FACES): 8 - Related Data Allergies/Adverse Reactions: Allergies Allergy/AdvReac Type Severity Reaction Status Date / Time Penicillins Allergy Rash Verified 04/11/19 22:27 lorazepam [From Ativan] AdvReac Agitation Verified 04/12/19 07:58 Home Medications: Home Meds Azithromycin 500 mg PO MOWEFR 04/12/19 [History] Cyclobenzaprine [Flexeril] 10 mg PO TID PRN 04/12/19 [History] DULoxetine HCl [Duloxetine HCl] 30 mg PO DAILY 04/12/19 [History] Ipratropium/Albuterol Sulfate [Iprat-Albut 0.5-3(2.5) mg/3 ml] 3 ml IH Q4HR PRN 04/12/19 [History] Lactulose [Generlac] 15 ml PO DAILY 04/12/19 [History] Tamsulosin HCl 0.4 mg PO DAILY 04/12/19 [History] oxyCODONE HCl [Oxycodone HCl] 10 mg PO Q4HR PRN 04/12/19 [History] Past Medical History HEENT History: Reports: Other (See Below) Other HEENT History: wears glasses Cardiovascular History: Reports: High Cholesterol, Hypertension Respiratory History: Reports: COPD Gastrointestinal History: Reports: Diverticulosis, GERD Musculoskeletal History: Reports: Osteoarthritis, Other (See Below) Other Musculoskeletal History: broke 2 vertebrae in neck 1988; fall muscle tear and strain left leg; scoliosis of lumbar spine Other Neuro History: hx of ataxia Psychiatric History: Reports: Addiction Hematologic History: Reports: Anemia - Infectious Disease History Infectious Disease History: Reports: Chicken Pox, Measles, Mumps, Rheumatic Fever, Rubella - Past Surgical History HEENT Surgical History: Reports: Cataract Surgery GI Surgical History: Reports: Colonoscopy, EGD, Hernia, Inguinal Musculoskeletal Surgical History: Reports: Arthroscopic Procedure, Other (See Below) Other Musculoskeletal Surgeries/Procedures:: R. shoulder Social & Family History - Family History Family Medical History: Noncontributory - Tobacco Use Smoking Status *Q: Former Smoker Years of Tobacco use: 60 Used Tobacco, but Quit: Yes Month/Year Tobacco Last Used: 2017 - Caffeine Use Caffeine Use: Reports: Coffee, Soda Other Caffeine Use: 1 1/2 cups in am - Alcohol Use Days Per Week of Alcohol Use: 7 Number of Drinks Per Day: 4 Total Drinks Per Week: 28 Date of Last Drink: 04/10/19 - Recreational Drug Use Recreational Drug Use: No H&P Review of Systems - Review of Systems: Review Of Systems: Unable To Obtain Reason Not Obtained: sleeping, sedated Exam - Exam Exam: See Below - Vital Signs Vital Signs: Last Vital Signs Temp 97.6 F 04/12/19 04:00 Pulse 74 04/12/19 04:00 Resp 20 04/12/19 04:00 BP 140/52 L 04/12/19 04:00 Pulse Ox 94 L 04/12/19 04:00 Weight: 116 lb 11.2 oz - Exam General: No: Mild Distress Lungs: Clear to Auscultation, Normal Respiratory Effort Cardiovascular: Regular Rate, Regular Rhythm GI/Abdominal Exam: Normal Bowel Sounds, Soft, No Distention Extremities: No Pedal Edema Skin: Warm, Dry, Incision (Clean/dry/intact) Psychiatric: Agitated, Hallucinations, Withdrawal Symptoms - Patient Data Lab Results Last 24 hrs: Laboratory Results - last 24 hr 12/15/19 12/15/19 12/15/19 Range/Units 22:28 22:28 22:28 WBC 11.0 (4.5-12.0) X10-3/uL RBC 3.79 L (4.30-5.75) x10(6)uL Hgb 11.7 L (13.5-17.8) g/dL Hct 35.1 (30.0-51.3) % MCV 92.7 (80-96) fL MCH 31.0 (27.7-33.6) pg MCHC 33.4 (32.2-35.4) g/dL RDW 14.6 (11.5-15.5) % Plt Count 546 H (125-369) X10(3)uL MPV 6.0 L (7.4-10.4) fL Neut % (Auto) 68.2 (46-82) % Lymph % (Auto) 17.2 (13-37) % Rankin % (Auto) 9.7 (4-12) % Eos % (Auto) 2 (1.0-5.0) % Baso % (Auto) 3 H (0-2) % Neut # (Auto) 7.4 (1.6-8.3) # Lymph # (Auto) 1.9 (0.6-5.0) # Rankin # (Auto) 1.1 (0.0-1.3) # Eos # (Auto) 0.3 (0.0-0.8) # Baso # (Auto) 0.3 H (0.0-0.2) # Sodium 141 (135-145) mmol/L Potassium 3.9 (3.5-5.3) mmol/L Chloride 101 (100-110) mmol/L Carbon Dioxide 31 (21-32) mmol/L BUN 25 H (7-18) mg/dL Creatinine 1.4 H (0.70-1.30) mg/dL Est Cr Clr Drug Dosing TNP Estimated GFR (MDRD) 49 L (>60) BUN/Creatinine Ratio 17.9 (9-20) Glucose 108 (80-116) mg/dL Calcium 9.5 (8.6-10.2) mg/dL Total Bilirubin 0.5 (0.1-1.3) mg/dL AST 44 H D (5-25) IU/L ALT 36 (12-36) U/L Alkaline Phosphatase 84 (56-112) IU/L Total Protein 7.0 (6.0-8.0) g/dL Albumin 3.6 (3.2-4.6) g/dL Globulin 3.4 g/dL Albumin/Globulin Ratio 1.1 Urine Color (YELLOW) Urine Appearance (CLEAR) Urine pH (5.0-6.5) Ur Specific [place] (1.010-1.025) Urine Protein (NEGATIVE) mg/dL Urine Glucose (UA) (NORMAL) mg/dL Urine Ketones (NEGATIVE) mg/dL Urine Occult Blood (NEGATIVE) Urine Nitrite (NEGATIVE) Urine Bilirubin (NEGATIVE) Urine Urobilinogen (NEGATIVE) mg/dL Ur Leukocyte Esterase (NEGATIVE) Urine RBC (0-5) Urine WBC (0-5) Ur Squamous Epith Cells (NS,R,O) Urine Bacteria (NS) Urine Opiates Screen (NEGATIVE) Ur Oxycodone Screen (NEGATIVE) Ur Propoxyphene Screen (NEGATIVE) Ur Barbituates Screen (NEGATIVE) Ur Tricyclics Screen (NEGATIVE) Ur Phencyclidine Scrn (NEGATIVE) Ur Amphetamine Screen (NEGATIVE) Urine MDMA Screen (NEGATIVE) U Benzodiazepines Scrn (NEGATIVE) U Cocaine Metab Screen (NEGATIVE) U Marijuana (THC) Screen (NEGATIVE) Ethyl Alcohol < 0.03 (<0.03) % 04/11/19 04/11/19 04/12/19 Range/Units 22:42 22:42 07:00 WBC (4.5-12.0) X10-3/uL RBC (4.30-5.75) x10(6)uL Hgb (13.5-17.8) g/dL Hct (30.0-51.3) % MCV (80-96) fL MCH (27.7-33.6) pg MCHC (32.2-35.4) g/dL RDW (11.5-15.5) % Plt Count (125-369) X10(3)uL MPV (7.4-10.4) fL Neut % (Auto) (46-82) % Lymph % (Auto) (13-37) % Rankin % (Auto) (4-12) % Eos % (Auto) (1.0-5.0) % Baso % (Auto) (0-2) % Neut # (Auto) (1.6-8.3) # Lymph # (Auto) (0.6-5.0) # Rankin # (Auto) (0.0-1.3) # Eos # (Auto) (0.0-0.8) # Baso # (Auto) (0.0-0.2) # Sodium 142 (135-145) mmol/L Potassium 3.8 (3.5-5.3) mmol/L Chloride 104 (100-110) mmol/L Carbon Dioxide 30 (21-32) mmol/L BUN 20 H (7-18) mg/dL Creatinine 1.0 (0.70-1.30) mg/dL Est Cr Clr Drug Dosing 44.85 Estimated GFR (MDRD) > 60 (>60) BUN/Creatinine Ratio 20.0 (9-20) Glucose 119 H (80-116) mg/dL Calcium 8.6 (8.6-10.2) mg/dL Total Bilirubin (0.1-1.3) mg/dL AST (5-25) IU/L ALT (12-36) U/L Alkaline Phosphatase (56-112) IU/L Total Protein (6.0-8.0) g/dL Albumin (3.2-4.6) g/dL Globulin g/dL Albumin/Globulin Ratio Urine Color Yellow (YELLOW) Urine Appearance Clear (CLEAR) Urine pH 5.0 (5.0-6.5) Ur Specific [place] 1.025 (1.010-1.025) Urine Protein Negative (NEGATIVE) mg/dL Urine Glucose (UA) Normal (NORMAL) mg/dL Urine Ketones Negative (NEGATIVE) mg/dL Urine Occult Blood Negative (NEGATIVE) Urine Nitrite Negative (NEGATIVE) Urine Bilirubin Negative (NEGATIVE) Urine Urobilinogen Normal (NEGATIVE) mg/dL Ur Leukocyte Esterase Negative (NEGATIVE) Urine RBC 0-5 (0-5) Urine WBC 0-5 (0-5) Ur Squamous Epith Cells Occasional (NS,R,O) Urine Bacteria Rare H (NS) Urine Opiates Screen Negative (NEGATIVE) Ur Oxycodone Screen Positive (NEGATIVE) Ur Propoxyphene Screen Negative (NEGATIVE) Ur Barbituates Screen Negative (NEGATIVE) Ur Tricyclics Screen Positive H (NEGATIVE) Ur Phencyclidine Scrn Negative (NEGATIVE) Ur Amphetamine Screen Negative (NEGATIVE) Urine MDMA Screen Negative (NEGATIVE) U Benzodiazepines Scrn Positive H (NEGATIVE) U Cocaine Metab Screen Negative (NEGATIVE) U Marijuana (THC) Screen Negative (NEGATIVE) Ethyl Alcohol (<0.03) % Result Diagrams: 04/11/19 22:28 04/12/19 07:00 Sepsis Event Note - Evaluation Sepsis Screening Result: No Definite Risk - Problem List (1) Fall SNOMED Code(s): 5402956, 810875935 ICD Code: W19.XXXA - UNSPECIFIED FALL, INITIAL ENCOUNTER Status: Acute Current Visit: Yes (2) Alcohol withdrawal SNOMED Code(s): 775089094 ICD Code: F10.239 - ALCOHOL DEPENDENCE WITH WITHDRAWAL, UNSPECIFIED Status : Acute Current Visit: Yes (3) COPD (chronic obstructive pulmonary disease) SNOMED Code(s): 86147575 ICD Code: J44.9 - CHRONIC OBSTRUCTIVE PULMONARY DISEASE, UNSPECIFIED Status : Acute Current Visit: No Problem Details: Oxygen dependent at night. DuoNeb 's 4 times a day and oxygen when necessary to keep sats between 90 and 95%. Qualifiers: COPD type: emphysema Emphysema type: unspecified Qualified Code(s): J43.9 - Emphysema, unspecified (4) Chronic neck and back pain SNOMED Code(s): 30808016 ICD Code: M54.2 - CERVICALGIA; M54.9 - DORSALGIA, UNSPECIFIED Status: Acute Current Visit: No (5) HLD (hyperlipidemia) SNOMED Code(s): 28379231 ICD Code: E78.5 - HYPERLIPIDEMIA, UNSPECIFIED Status: Acute Current Visit : No Problem Details: Continue Zocor. Qualifiers: Hyperlipidemia type: other hyperlipidemia (6) S/P shoulder surgery SNOMED Code(s): 197198224, 25998870, 447625011 ICD Code: Z98.890 - OTHER SPECIFIED POSTPROCEDURAL STATES Status: Acute Current Visit: No Problem Details: PT/OT/pain management. Patient appropriate for swing bed status. Patient has requested oxycodone and Tylenol and [place] were discontinued at patient request. Did discuss that this had previously made him confused and he does not recall that. Explained to him that this is very common. (7) Scoliosis Status: Acute Current Visit: No Qualifiers: Scoliosis type: idiopathic (8) Tobacco abuse SNOMED Code(s): 861596597 ICD Code: Z72.0 - TOBACCO USE Status: Acute Current Visit: No Problem Details: Chantix caused bad dreams last night so patient declined to continue it. Offered nicotine replacement therapy but patient declined. (9) History of back surgery SNOMED Code(s): 815002154 ICD Code: Z98.890 - OTHER SPECIFIED POSTPROCEDURAL STATES Status: Acute Current Visit: Yes Problem List Initiated/Reviewed/Updated: Yes Orders Last 24hrs: Active Orders 24 hr Category Date Time Status Patient Status [ADT] Routine ADT 04/11/19 23:09 Active Antiembolic Devices [RC] .Routine Care 04/12/19 10:06 Active Oxygen Therapy [RC] PRN Care 04/11/19 23:09 Active Up With Assistance [RC] ASDIRECTED Care 04/11/19 23:09 Active VTE/DVT Education [RC] Per Unit Routine Care 04/11/19 23:09 Active Vital Signs [RC] 00,04,08,12,16,20 Care 04/11/19 23:09 Active Clear Liquid Diet [DIET] Diet 04/12/19 Breakfast Active BASIC METABOLIC PANEL,BMP [CHEM] AM Lab 04/13/19 05:11 Ordered Albuterol/Ipratropium [DuoNeb 3.0-0.5 MG/3 ML] Med 04/12/19 11:09 Active 3 ml INH Q4H PRN Azithromycin [Zithromax] Med 04/12/19 11:15 Active 500 mg PO MoWeFr@0900 DULoxetine [Cymbalta] Med 04/13/19 09:00 Active 30 mg PO DAILY Folic Acid Med 04/12/19 12:00 Active 1 mg PO DAILY Lactulose [Chronulac] Med 04/13/19 09:00 Active 10 gm PO DAILY Multivitamins [Tab-A-Dana] Med 04/12/19 12:00 Active 1 tab PO DAILY Ondansetron [Zofran ODT] Med 04/12/19 11:35 Active 4 mg PO Q4H PRN Sodium Chloride 0.9% [Normal Saline] 1,000 ml Med 04/11/19 22:06 Active IV .BOLUS Sodium Chloride 0.9% [Normal Saline] 1,000 ml Med 04/11/19 23:15 Active IV ASDIRECTED Tamsulosin [Flomax] Med 04/13/19 09:00 Active 0.4 mg PO DAILY diazePAM [Valium] Med 04/11/19 23:20 Active 10 mg IV Q4H PRN oxyCODONE Med 04/12/19 11:30 Active 10 mg PO Q4H PRN Antiembolic Hose [OM.PC] Routine Oth 04/12/19 10:06 Ordered Resuscitation Status Routine Resus Stat 04/11/19 23:09 Ordered Medication Orders Albuterol/Ipratropium (Duoneb 3.0-0.5 Mg/3 Ml) 3 ml INH Q4H PRN PRN Reason: Dyspnea Azithromycin (Zithromax) 500 mg PO MoWeFr@0900 [facility] Last Admin: 04/12/19 12:16 Dose: 500 mg Diazepam (Valium) 10 mg IV Q4H PRN PRN Reason: Agitation Stop: 04/13/19 23:59 Last Admin: 04/12/19 05:00 Dose: 10 mg Admin: 04/11/19 23:05 Dose: 10 mg Duloxetine HCl (Cymbalta) 30 mg PO DAILY [facility] Folic Acid (Folic Acid) 1 mg PO DAILY [facility] Last Admin: 04/12/19 12:14 Dose: 1 mg Sodium Chloride (Normal Saline) 1,000 mls @ 500 drops/hr IV .BOLUS ONE Stop: 04/13/19 04:05 Last Infusion: 04/11/19 23:55 Dose: 125 drops/hr Admin: 04/11/19 22:50 Dose: 500 drops/hr Sodium Chloride (Normal Saline) 1,000 mls @ 125 mls/hr IV ASDIRECTED [facility] Last Admin: 04/12/19 12:23 Dose: 125 mls/hr Infusion: 04/12/19 12:23 Dose: 125 mls/hr Admin: 04/12/19 05:05 Dose: 125 mls/hr Lactulose (Chronulac) 10 gm PO DAILY [facility] Multivitamins/Minerals/Vitamin C (Tab-A-Dana) 1 tab PO DAILY [facility] Last Admin: 04/12/19 12:13 Dose: 1 tab Ondansetron HCl (Zofran Odt) 4 mg PO Q4H PRN PRN Reason: Nausea/Vomiting Oxycodone HCl (Oxycodone) 10 mg PO Q4H PRN PRN Reason: PAIN Last Admin: 04/12/19 11:49 Dose: 10 mg Tamsulosin HCl (Flomax) 0.4 mg PO DAILY ANDREI Assessment/Plan Comment:: 1. Admitted to Med/surg 102 so can be observed closely. Seizure precautions. CIWAA protocol, but with Valium as Ativan caused worsening agitation. IV fluids at 125 ml/hr. CT head ordered since could not be done in ER due to agitation. Advance diet once more awake. MTIV daily, Folate daily and Thiamine daily. 2. Restart home medications once awake except Flexeril since he is on Valium. 3. Limited staff for tonight and tomorrow, has not gone into full DTs yet, will see if we can get transfer to higher level of care once CT comes back. 4. FULL CODE.
--- NOTE | 2019-04-12 13:21 | PCM.DCSUM1 ---
Discharge Summary - Hospital Course HPI Initial Comments: Pt comes from home by EMS with his son with agitation, restlessness and visual hallucinations this evening, pt on arrival is alert with stable vitals, he has long Hx of alcoholism and recurrent DTs, he has also Hx of chronic pain and on scheduled Percocet. pt at this time is alert and follows simple commands but appear very restless, report Hx of frequent falls including a fall with head injury Friday, denies chest pain resp sx or GI sx, indicate that he has chronic pain and he hurts all over all the time, report last alcoholic drink was Friday evening. Had a TENS stimulator placed about 10 days ago, on prophylactic azithromycin Fri, , Fri. Patient had Ativan last night agitation was worse. Required 2 doses of Valium 10 mg before he settled and was able to be moved to the floor. CT head was ordered in ER but due to his agitation was not able to be performed. Information from ER provider as patient is sleeping and not able to answer questions. Diagnosis: Stroke: No - Discharge Data Discharge Date: 04/12/19 Discharge Disposition: DC/Tfer to Acute Hospital 02 Condition: Stable - Referral to Home Health Primary Care Physician: PCP None - Discharge Diagnosis/Problem(s) (1) Fall SNOMED Code(s): 4669027, 299091794 ICD Code: W19.XXXA - UNSPECIFIED FALL, INITIAL ENCOUNTER Status: Acute Current Visit: Yes Problem Details: more falls since back surgery (2) Alcohol withdrawal SNOMED Code(s): 389985559 ICD Code: F10.239 - ALCOHOL DEPENDENCE WITH WITHDRAWAL, UNSPECIFIED Status : Acute Current Visit: Yes (3) COPD (chronic obstructive pulmonary disease) SNOMED Code(s): 26930403 ICD Code: J44.9 - CHRONIC OBSTRUCTIVE PULMONARY DISEASE, UNSPECIFIED Status : Acute Current Visit: No Problem Details: Oxygen dependent at night. DuoNeb 's 4 times a day and oxygen when necessary to keep sats between 90 and 95%. Qualifiers: COPD type: emphysema Emphysema type: unspecified Qualified Code(s): J43.9 - Emphysema, unspecified (4) Chronic neck and back pain SNOMED Code(s): 40175092 ICD Code: M54.2 - CERVICALGIA; M54.9 - DORSALGIA, UNSPECIFIED Status: Acute Current Visit: No (5) HLD (hyperlipidemia) SNOMED Code(s): 50198899 ICD Code: E78.5 - HYPERLIPIDEMIA, UNSPECIFIED Status: Acute Current Visit : No Problem Details: Continue Zocor. Qualifiers: Hyperlipidemia type: other hyperlipidemia (6) S/P shoulder surgery SNOMED Code(s): 426781960, 95165776, 905933895 ICD Code: Z98.890 - OTHER SPECIFIED POSTPROCEDURAL STATES Status: Acute Current Visit: No (7) Scoliosis Status: Acute Current Visit: No Qualifiers: Scoliosis type: idiopathic (8) Tobacco abuse SNOMED Code(s): 437470204 ICD Code: Z72.0 - TOBACCO USE Status: Acute Current Visit: No Problem Details: Chantix caused bad dreams last night so patient declined to continue it. Offered nicotine replacement therapy but patient declined. (9) History of back surgery SNOMED Code(s): 512995926 ICD Code: Z98.890 - OTHER SPECIFIED POSTPROCEDURAL STATES Status: Acute Current Visit: Yes Problem Details: 10 days ago, has been falling more at home since, battery due to recharging. - Patient Summary/Data Hospital Course: Patient was sleeping after his Valium 10 mg x 2 doses in ER, had CT head this morning which showed no acute hemorrhage, chronic atrophic changes. Was up to bathroom, complaining of back pain, had shuffling gait, very unsteady, required walker, stand by assist to get to bathroom, refused bedside commode. Was able to take some oral medications, able to keep down. Patient is stable currently, but not into full DTs yet as last drink was 12/14 in the evening. Due to staff issues tonight and tomorrow called [facility], spoke with Dr Vuong hospitalist who agreed to take the patient in transfer. - Patient Instructions Diet: Clear Liquid Diet Activity: Bedrest - Discharge Plan *PRESCRIPTION DRUG MONITORING PROGRAM REVIEWED*: No *COPY OF PRESCRIPTION DRUG MONITORING REPORT IN PATIENT HERI: No Home Medications: Home Meds Azithromycin 500 mg PO MOWEFR 04/12/19 [History] Cyclobenzaprine [Flexeril] 10 mg PO TID PRN 04/12/19 [History] DULoxetine HCl [Duloxetine HCl] 30 mg PO DAILY 04/12/19 [History] Folic Acid 1 mg PO DAILY tablet 04/12/19 [Rx] Ipratropium/Albuterol Sulfate [Iprat-Albut 0.5-3(2.5) mg/3 ml] 3 ml IH Q4HR PRN 04/12/19 [History] Lactulose [Generlac] 15 ml PO DAILY 04/12/19 [History] Multivitamins [Tab-A-Dana] 1 tab PO DAILY tablet 04/12/19 [Rx] Ondansetron [Zofran ODT] 4 mg PO Q4H PRN tab.dis 04/12/19 [Rx] Sodium Chloride 0.9% [Normal Saline] 125 ml IV ASDIRECTED bag 04/12/19 [Rx] Tamsulosin HCl 0.4 mg PO DAILY 04/12/19 [History] diazePAM [Valium] 10 mg IV Q4H PRN ml 04/12/19 [Rx] oxyCODONE HCl [Oxycodone HCl] 10 mg PO Q4HR PRN 04/12/19 [History] Forms: ED Department Discharge Referrals: PCP,None [Primary Care Provider] - - Discharge Summary/Plan Comment DC Time >30 min.: Yes - Patient Data Vitals - Most Recent: Last Vital Signs Temp 97.6 F 04/12/19 04:00 Pulse 74 04/12/19 04:00 Resp 20 04/12/19 04:00 BP 140/52 L 04/12/19 04:00 Pulse Ox 94 L 04/12/19 04:00 Weight - Most Recent: 116 lb 11.2 oz I&O - Last 24 hours: Intake & Output 04/11/19 04/12/19 04/12/19 22:59 06:59 14:59 Intake Total 792 790 Balance 792 790 Lab Results - Last 24 hrs: Laboratory Results - last 24 hr 04/11/19 04/11/19 04/11/19 Range/Units 22:28 22:28 22:28 WBC 11.0 (4.5-12.0) X10-3/uL RBC 3.79 L (4.30-5.75) x10(6)uL Hgb 11.7 L (13.5-17.8) g/dL Hct 35.1 (30.0-51.3) % MCV 92.7 (80-96) fL MCH 31.0 (27.7-33.6) pg MCHC 33.4 (32.2-35.4) g/dL RDW 14.6 (11.5-15.5) % Plt Count 546 H (125-369) X10(3)uL MPV 6.0 L (7.4-10.4) fL Neut % (Auto) 68.2 (46-82) % Lymph % (Auto) 17.2 (13-37) % [place] % (Auto) 9.7 (4-12) % Eos % (Auto) 2 (1.0-5.0) % Baso % (Auto) 3 H (0-2) % Neut # (Auto) 7.4 (1.6-8.3) # Lymph # (Auto) 1.9 (0.6-5.0) # [place] # (Auto) 1.1 (0.0-1.3) # Eos # (Auto) 0.3 (0.0-0.8) # Baso # (Auto) 0.3 H (0.0-0.2) # Sodium 141 (135-145) mmol/L Potassium 3.9 (3.5-5.3) mmol/L Chloride 101 (100-110) mmol/L Carbon Dioxide 31 (21-32) mmol/L BUN 25 H (7-18) mg/dL Creatinine 1.4 H (0.70-1.30) mg/dL Est Cr Clr Drug Dosing TNP Estimated GFR (MDRD) 49 L (>60) BUN/Creatinine Ratio 17.9 (9-20) Glucose 108 (80-116) mg/dL Calcium 9.5 (8.6-10.2) mg/dL Total Bilirubin 0.5 (0.1-1.3) mg/dL AST 44 H D (5-25) IU/L ALT 36 (12-36) U/L Alkaline Phosphatase 84 (56-112) IU/L Total Protein 7.0 (6.0-8.0) g/dL Albumin 3.6 (3.2-4.6) g/dL Globulin 3.4 g/dL Albumin/Globulin Ratio 1.1 Urine Color (YELLOW) Urine Appearance (CLEAR) Urine pH (5.0-6.5) Ur Specific [place] (1.010-1.025) Urine Protein (NEGATIVE) mg/dL Urine Glucose (UA) (NORMAL) mg/dL Urine Ketones (NEGATIVE) mg/dL Urine Occult Blood (NEGATIVE) Urine Nitrite (NEGATIVE) Urine Bilirubin (NEGATIVE) Urine Urobilinogen (NEGATIVE) mg/dL Ur Leukocyte Esterase (NEGATIVE) Urine RBC (0-5) Urine WBC (0-5) Ur Squamous Epith Cells (NS,R,O) Urine Bacteria (NS) Urine Opiates Screen (NEGATIVE) Ur Oxycodone Screen (NEGATIVE) Ur Propoxyphene Screen (NEGATIVE) Ur Barbituates Screen (NEGATIVE) Ur Tricyclics Screen (NEGATIVE) Ur Phencyclidine Scrn (NEGATIVE) Ur Amphetamine Screen (NEGATIVE) Urine MDMA Screen (NEGATIVE) U Benzodiazepines Scrn (NEGATIVE) U Cocaine Metab Screen (NEGATIVE) U Marijuana (THC) Screen (NEGATIVE) Ethyl Alcohol < 0.03 (<0.03) % 04/11/19 04/11/19 04/12/19 Range/Units 22:42 22:42 07:00 WBC (4.5-12.0) X10-3/uL RBC (4.30-5.75) x10(6)uL Hgb (13.5-17.8) g/dL Hct (30.0-51.3) % MCV (80-96) fL MCH (27.7-33.6) pg MCHC (32.2-35.4) g/dL RDW (11.5-15.5) % Plt Count (125-369) X10(3)uL MPV (7.4-10.4) fL Neut % (Auto) (46-82) % Lymph % (Auto) (13-37) % [place] % (Auto) (4-12) % Eos % (Auto) (1.0-5.0) % Baso % (Auto) (0-2) % Neut # (Auto) (1.6-8.3) # Lymph # (Auto) (0.6-5.0) # [place] # (Auto) (0.0-1.3) # Eos # (Auto) (0.0-0.8) # Baso # (Auto) (0.0-0.2) # Sodium 142 (135-145) mmol/L Potassium 3.8 (3.5-5.3) mmol/L Chloride 104 (100-110) mmol/L Carbon Dioxide 30 (21-32) mmol/L BUN 20 H (7-18) mg/dL Creatinine 1.0 (0.70-1.30) mg/dL Est Cr Clr Drug Dosing 44.85 Estimated GFR (MDRD) > 60 (>60) BUN/Creatinine Ratio 20.0 (9-20) Glucose 119 H (80-116) mg/dL Calcium 8.6 (8.6-10.2) mg/dL Total Bilirubin (0.1-1.3) mg/dL AST (5-25) IU/L ALT (12-36) U/L Alkaline Phosphatase (56-112) IU/L Total Protein (6.0-8.0) g/dL Albumin (3.2-4.6) g/dL Globulin g/dL Albumin/Globulin Ratio Urine Color Yellow (YELLOW) Urine Appearance Clear (CLEAR) Urine pH 5.0 (5.0-6.5) Ur Specific [place] 1.025 (1.010-1.025) Urine Protein Negative (NEGATIVE) mg/dL Urine Glucose (UA) Normal (NORMAL) mg/dL Urine Ketones Negative (NEGATIVE) mg/dL Urine Occult Blood Negative (NEGATIVE) Urine Nitrite Negative (NEGATIVE) Urine Bilirubin Negative (NEGATIVE) Urine Urobilinogen Normal (NEGATIVE) mg/dL Ur Leukocyte Esterase Negative (NEGATIVE) Urine RBC 0-5 (0-5) Urine WBC 0-5 (0-5) Ur Squamous Epith Cells Occasional (NS,R,O) Urine Bacteria Rare H (NS) Urine Opiates Screen Negative (NEGATIVE) Ur Oxycodone Screen Positive (NEGATIVE) Ur Propoxyphene Screen Negative (NEGATIVE) Ur Barbituates Screen Negative (NEGATIVE) Ur Tricyclics Screen Positive H (NEGATIVE) Ur Phencyclidine Scrn Negative (NEGATIVE) Ur Amphetamine Screen Negative (NEGATIVE) Urine MDMA Screen Negative (NEGATIVE) U Benzodiazepines Scrn Positive H (NEGATIVE) U Cocaine Metab Screen Negative (NEGATIVE) U Marijuana (THC) Screen Negative (NEGATIVE) Ethyl Alcohol (<0.03) % Med Orders - Current: Current Medications Albuterol/Ipratropium (Duoneb 3.0-0.5 Mg/3 Ml) 3 ml INH Q4H PRN PRN Reason: Dyspnea Azithromycin (Zithromax) 500 mg PO MoWeFr@0900 [facility] Last Admin: 12/16/19 12:16 Dose: 500 mg Diazepam (Valium) 10 mg IV Q4H PRN PRN Reason: Agitation Stop: 04/13/19 23:59 Last Admin: 04/12/19 05:00 Dose: 10 mg Duloxetine HCl (Cymbalta) 30 mg PO DAILY [facility] Folic Acid (Folic Acid) 1 mg PO DAILY [facility] Last Admin: 04/12/19 12:14 Dose: 1 mg Sodium Chloride (Normal Saline) 1,000 mls @ 500 drops/hr IV .BOLUS ONE Stop: 04/13/19 04:05 Last Infusion: 04/11/19 23:55 Dose: 125 drops/hr Sodium Chloride (Normal Saline) 1,000 mls @ 125 mls/hr IV ASDIRECTED [facility] Last Admin: 04/12/19 12:23 Dose: 125 mls/hr Lactulose (Chronulac) 10 gm PO DAILY [facility] Multivitamins/Minerals/Vitamin C (Tab-A-Dana) 1 tab PO DAILY [facility] Last Admin: 04/12/19 12:13 Dose: 1 tab Ondansetron HCl (Zofran Odt) 4 mg PO Q4H PRN PRN Reason: Nausea/Vomiting Oxycodone HCl (Oxycodone) 10 mg PO Q4H PRN PRN Reason: PAIN Last Admin: 04/12/19 11:49 Dose: 10 mg Tamsulosin HCl (Flomax) 0.4 mg PO DAILY [facility] Discontinued Medications Diazepam (Valium) Confirm Administered Dose 5 mg .ROUTE .STK-MED ONE Stop: 04/11/19 23:03 Last Admin: 04/11/19 23:35 Dose: Not Given Lorazepam (Ativan) 2 mg IVPUSH ONETIME ONE Stop: 04/11/19 22:07 Last Admin: 04/11/19 22:50 Dose: 2 mg Thiamine HCl (Vitamin B-1) 100 mg PO ONETIME ONE Stop: 04/12/19 11:58 Last Admin: 04/12/19 12:16 Dose: 100 mg - Exam General: Reports: Alert, Cooperative, No Acute Distress Lungs: Reports: Normal Respiratory Effort, Crackles (minimal LLL), Other ( Ecchymosis right ribs) Cardiovascular: Reports: Regular Rate, Regular Rhythm GI/Abdominal Exam: Normal Bowel Sounds, Soft, Non-Tender, No Distention (Male) Exam: Deferred Rectal (Males) Exam: Deferred Back Exam: Reports: Decreased Range of Motion, Other (Surgical scars on lumbar spine) Extremities: No Pedal Edema Skin: Reports: Ecchymosis (right ribs and right elbow) Wound/Incisions: Reports: Healing Well (lumbar spine, right posterior iliac spine), No Drainage Psy/Mental Status: Reports: Alert, Hallucinations, Withdrawal Symptoms
[2019-04-12 15:25] VITALS: BP 145/80; PULSE 80
[2019-04-13] MEDS ORDERED: DULoxetine 30 MG Cap PO SCH (09:00)
[2019-04-13] MEDS ORDERED: Lactulose Soln 10 GM/15 ML 15 ML UD Cup PO SCH (09:00)
[2019-04-13] MEDS ORDERED: Tamsulosin 0.4 MG Cap.ER PO SCH (09:00)
== END 2019-04-12 13:30 | DRG 897 ==
LOC: FB.ED 21:40 → UNDOADMIN 23:17 → FB.MS 23:17
PROVIDERS: ADMIT Family Medicine; ATTEND Family Medicine
DX: F10.231 Alcohol dependence with withdrawal delirium (principal); Y90.9 Presence of alcohol in blood, level not specified; J43.9 Emphysema, unspecified; G89.29 Other chronic pain; M54.2 Cervicalgia; H54.7 Unspecified visual loss; M54.9 Dorsalgia, unspecified; E78.5 Hyperlipidemia, unspecified; I10 Essential (primary) hypertension; K21.9 Gastro-esophageal reflux disease without esophagitis; J44.9 Chronic obstructive pulmonary disease, unspecified; M41.26 Other idiopathic scoliosis, lumbar region; E78.00 Pure hypercholesterolemia, unspecified; R29.6 Repeated falls; S09.90XA Unspecified injury of head, initial encounter; M19.90 Unspecified osteoarthritis, unspecified site; D64.9 Anemia, unspecified; W19.XXXA Unspecified fall, initial encounter; Y90.1 Blood alcohol level of 20-39 mg/100 ml; Z98.49 Cataract extraction status, unspecified eye; Z98.890 Other specified postprocedural states; Z79.899 Other long term (current) drug therapy; Z91.81 History of falling; Z88.0 Allergy status to penicillin; Z88.8 Allergy status to other drugs, medicaments and biological substances; Z87.891 Personal history of nicotine dependence
CPT/HCPCS: 36415; 70450; 80048; 80053; 80305-QW; 81001; 85025; 94760; 96374; 99284; 99285-25; A9270-GY; G0480; J2060; J3360; J7030

== ENCOUNTER 2020-10-02 18:01 | Emergency (ER) | payer MEDICARE, OTHER ==
[2020-10-02] MEDS ORDERED: Lidocaine 2% with EPINEPHrine 1:100,000 20 ML MDV INFILT ONE (18:02)
--- NOTE | 2020-10-02 18:19 | EDM.PDOC ---
ED HPI GENERAL MEDICAL PROBLEM - General Time Seen by Provider: 10/02/20 18:18 Source of Information: Reports: Patient History Limitations: Reports: No Limitations - History of Present Illness INITIAL COMMENTS - FREE TEXT/NARRATIVE: 80-year-old male who reports that at approximately 3:30 to 4 PM, he was attempting to push a box up his stairs at his house and he lost his balance and fell backwards going down approximately 7 steps. He hit his head on the concrete sidewalk. He did not have any loss of consciousness. He also hit his back on his oxygen tank as he is an O2 dependent COPD'er. He states that he also hit his left posterior thigh against some object that he thinks may have been part of his oxygen tank and he sustained a deep gouge to that area. He states that he was quite dazed initially and "just laid there for a while" and then he was able to get himself up and he walked up the stairs to his kitchen and sat at the table. He apparently was bleeding quite a bit from his head and also from his left posterior thigh and he begin to have fairly severe pain in his left upper back and left flank area. He states that he took 2 of his oxycodone tablets and he also drank 2 beers and then he potentially let his called 911. The reported him as witnessed that the patient did have quite a puddle of blood underneath him and they arrived to pick him up. He presents to the emergency department via ambulance complaining of severe pain in his left upper back and shoulder blade area as well as his left flank. He reports that he "hurts all over". Does have some chronic back pain and is chronically on oxycodone for this as well as having a pain stimulator inserted in his lumbar and thoracic back. He denies any nausea. There has been no vomiting. She was feeling his normal self with his "normal pain" prior to this. He reports that he normally has 5/10 level of pain. Today the pain is a 9-10/10. Today it is very sharp and located in the areas mentioned above. He does report some shortness of breath that seems to be a little worse than he normally has. He is on 2 L/m via nasal cannula with O2 saturations of 91-93% he is awake and alert. He is fluent and appropriate. He appears in pain and somewhat dyspneic. He does have a rather pale appearance. There are no other associated signs or symptoms. There are no other modifying factors. Onset: Today (4 PM) Duration: Getting Worse Quality: Reports: Sharp, Stabbing Severity: Severe Improves with: Reports: Rest Worsens with: Reports: Breathing, Other (Palpation), Movement Context: Reports: Trauma Associated Symptoms: Reports: No Other Symptoms (Except as above.) Treatments COAL HAULER: Reports: Other Medication(s) (Oxycodone. 2 beers.) Left Shoulder Pain Score (Numeric/FACES): 10 - Related Data Allergies Allergy/AdvReac Type Severity Reaction Status Date / Time Penicillins Allergy Rash Verified 04/11/19 22:27 lorazepam [From Ativan] AdvReac Agitation Verified 04/12/19 07:58 Home Meds: Home Meds Azithromycin 500 mg PO MOWEFR 04/12/19 [History] Cyclobenzaprine [Flexeril] 10 mg PO TID PRN 04/12/19 [History] DULoxetine HCl [Duloxetine HCl] 30 mg PO DAILY 04/12/19 [History] Folic Acid 1 mg PO DAILY tablet 04/12/19 [Rx] Ipratropium/Albuterol Sulfate [Iprat-Albut 0.5-3(2.5) mg/3 ml] 3 ml IH Q4HR PRN 04/12/19 [History] Lactulose [Generlac] 15 ml PO DAILY 04/12/19 [History] Multivitamins [Tab-A-Dana] 1 tab PO DAILY tablet 04/12/19 [Rx] Ondansetron [Zofran ODT] 4 mg PO Q4H PRN tab.dis 04/12/19 [Rx] Sodium Chloride 0.9% [Normal Saline] 125 ml IV ASDIRECTED bag 04/12/19 [Rx] Tamsulosin HCl 0.4 mg PO DAILY 04/12/19 [History] diazePAM [Valium] 10 mg IV Q4H PRN ml 04/12/19 [Rx] oxyCODONE HCl [Oxycodone HCl] 10 mg PO Q4HR PRN 04/12/19 [History] Past Medical History HEENT History: Reports: Impaired Vision, Other (See Below) Other HEENT History: wears glasses Cardiovascular History: Reports: High Cholesterol, Hypertension Respiratory History: Reports: COPD (O2 dependent.) Gastrointestinal History: Reports: Diverticulosis, GERD Musculoskeletal History: Reports: Osteoarthritis, Other (See Below) Other Musculoskeletal History: broke 2 vertebrae in neck 1988; fall muscle tear and strain left leg; scoliosis of lumbar spine Other Neuro History: hx of ataxia Psychiatric History: Reports: Addiction (On chronic narcotic pain management.) Hematologic History: Reports: Anemia - Infectious Disease History Infectious Disease History: Reports: Chicken Pox, Measles, Mumps, Rheumatic Fever, Rubella - Past Surgical History HEENT Surgical History: Reports: Cataract Surgery GI Surgical History: Reports: Colonoscopy, EGD, Hernia, Inguinal Musculoskeletal Surgical History: Reports: Arthroscopic Procedure, Other (See Below) Other Musculoskeletal Surgeries/Procedures:: R. shoulder Social & Family History - Tobacco Use Tobacco Use Status *Q: Former Tobacco User (Nonsmoker for the past 3 years but a heavy smoker prior to that.) - Caffeine Use Caffeine Use: Reports: Coffee, Soda Other Caffeine Use: 1 1/2 cups in am - Alcohol Use Alcohol Use History: Yes Alcohol Use Frequency: Weekly (Had 2 beers today.) - Living Situation & Occupation Living situation: Reports: Occupation: Retired ED ROS GENERAL - Review of Systems Review Of Systems: See Below Constitutional: Reports: Diaphoresis. Denies: Fever, Chills HEENT: Denies: Eye Pain, Throat Pain Respiratory: Reports: Shortness of Breath, Pleuritic Chest Pain. Denies: Hemoptysis Cardiovascular: Reports: Chest Pain (Left lateral and posterior). Denies: Lightheadedness GI/Abdominal: Reports: Abdominal Pain (Some left flank and left upper quadrant). Denies: Nausea, Vomiting : Denies: Dysuria, Hematuria Musculoskeletal: Reports: Back Pain (Diffusely in his back but more on the left side. Left upper back and scapular pain.) Skin: Reports: Bruising, Wound (to left occiput and to left posterior thigh.) Neurological: Reports: Headache, Difficulty Walking (He has chronic difficulty walking.) Psychiatric: Reports: Anxiety. Denies: Hallucinations Hematologic/Lymphatic: Reports: Anemia. Denies: Easy Bleeding, Easy Bruising Immunologic: Reports: Other (Last tetanus immunization was greater than 5 years ago. Therefore, he is not up-to-date. No known allergies.) ED EXAM, HEAD INJURY - Physical Exam Exam: See Below Exam Limited By: No Limitations General Appearance: Alert, Moderate Distress, Thin Head: Scalp Lacerations, Scalp Swelling, Scalp Tenderness. No: Active Bleeding Nexus Criteria: Posterior, Midline Cervical Tenderness, Painful Distraction Injuries Eyes: Bilateral Eye: EOMI, Normal Inspection Ears: Normal External Exam, Hearing Loss (The patient is hard of hearing chron ically.) Nose: Normal Inspection, Normal Mucousa, No Blood Throat/Mouth: Normal Voice, No Airway Compromise Neck: Normal Alignment, Normal Inspection Respiratory: Lungs Clear, Normal Breath Sounds, Accessory Muscle Use Cardiovascular: Normal Peripheral Pulses, No Gallop, Systolic Murmur GI/Abdominal Exam: Normal Bowel Sounds, Soft, Tender (In left upper quadrant and left flank. No masses. No rigidity.). No: Rigid, Rebound (Male) Exam: Normal Inspection (Normal-appearing external genitalia.), Circumcised Back Exam: Decreased Range of Motion, Muscle Spasm, Paraspinal Tenderness Extremities: Normal Capillary Refill, Other (Ecchymosis and gaping wound on the left posterior thigh. This wound is V-shaped and is 7 cm in length.) Neurologic: bar attendant II-XII nml As Tested, No Motor/Sensory Deficits, Normal Mood/Affect, Oriented x 3 Skin: Warm/Dry, Ecchymosis, Pallor, Other (1.5 cm laceration to the left occipital scalp to the subcutaneous tissue.) - Tyrel Coma Score Best Eye Response (Tyrel): (4) Open Spontaneously Best Verbal Response (Tyrel): (5) Oriented Best Motor Response (Tyrel): (6) Obeys Commands Tyrel Total: 15 ED LACERATION/WOUND & BO PROC - Laceration/Wound Repair Left Occipital Head Lac/wound length in cm: 1.5 Appearance: Subcutaneous, Mildly Contaminated Anesthetic Type: Other (None) Skin Prep: Saline Saline irrigation (cc's): 50 Exploration/Debridement/Repair: Wound Explored, No Foreign Material Found, Other (No crepitus. No fraction.) Closed with: [place] # of Sutures: 2 Tetanus Status Addressed: Yes (Patient was given a Tdap immunization.) Complications: No Progress/Comments: Patient tolerated this well and there were no apparent complications. Left Posterior Thigh Appearance: Subcutaneous, Muscle, Moderately Contaminated Distal NVT: Neuro & Vascular Intact, No Tendon Injury Anesthetic Type: Local Local Anesthesia - Lidocaine (Xylocaine): 2% with EPI Local Anesthetic Volume: Other (10 ml) Skin Prep: Saline Saline irrigation (cc's): 1,000 Exploration/Debridement/Repair: Wound Explored, Other (Multiple clots removed. No foreign bodies seen) Closed with: Sutures Suture Size: 3-0 # of Sutures: 6 Suture Type: Prolene Drain Placement: Yes Sterile Dressing Applied: Provider Tetanus Status Addressed: Yes Complications: No Progress/Comments: Patient tolerated this procedure well and there were no apparent complications. #1 Interpretation EKG Date: 10/02/20 Time: 19:29 Rhythm: NSR Rate (Beats/Min): 90 [place]: LAD-Left [place] Deviation QRS: RBBB (And LAFB) ST-T: Other (Inversion in lead III.) QT: Prolonged (Prolonged QTc.) Comparison: No Change (No change from an EKG performed on 06/25/2017.) Course - Vital Signs Last Recorded V/S: Last Vital Signs Temp 36.7 C 10/02/20 18:01 Pulse 95 10/02/20 18:01 Resp 20 10/02/20 18:01 BP 135/76 10/02/20 18:01 Pulse Ox 94 L 10/02/20 18:01 - Orders/Labs/Meds Orders: Active Orders 24 hr Category Date Time Status EKG Documentation Completion [RC] ASDIRECTED Care 10/02/20 18:42 Active Vaccines to be Administered [RC] PER UNIT ROUTINE Care 10/02/20 18:39 Active Cervical Spine wo Cont [CT] Stat Exams 10/02/20 18:39 Taken Chest 1V Frontal [CR] Stat Exams 10/02/20 18:37 Taken Chest Abdomen Pelvis w Cont [CT] Stat Exams 10/02/20 18:39 Taken Femur Min 2V Lt [CR] Stat Exams 10/02/20 23:02 Taken Head wo Cont [CT] Stat Exams 10/02/20 18:39 Taken Sodium Chloride 0.9% [Normal Saline] 1,000 ml Med 10/02/20 18:45 Active IV ASDIRECTED Sodium Chloride 0.9% [Saline Flush] Med 10/02/20 18:37 Active 10 ml FLUSH ASDIRECTED PRN Peripheral IV Insertion Adult [OM.PC] Routine Oth 10/02/20 18:37 Ordered EKG 12 Lead [EK] Routine Ther 10/02/20 18:42 Ordered Medication Orders Sodium Chloride (Normal Saline) 1,000 mls @ 125 mls/hr IV ASDIRECTED ANDREI Last Admin: 10/02/20 19:20 Dose: 125 mls/hr Documented by: JOSÉ MIGUEL Sodium Chloride (Sodium Chloride 0.9% 10 Ml Syringe) 10 ml FLUSH ASDIRECTED PRN PRN Reason: Keep Vein Open Labs: Laboratory Tests 10/02/20 10/02/20 10/02/20 Range/Units 18:42 18:42 18:42 WBC 8.4 (3.2-10.1) x10-3/uL RBC 3.88 L (3.90-5.90) x10(6)uL Hgb 12.0 L (12.9-17.7) g/dL Hct 35.9 L (38.3-50.1) % MCV 92.4 (80.8-98.7) fL MCH 30.8 (27.0-33.3) pg MCHC 33.4 (28.7-35.3) g/dL RDW 15.8 H (12.4-15.0) % Plt Count 322 (117-477) x10(3)uL MPV 6.8 (6.7-11.0) fL Neut % (Auto) 69.1 (40.3-71.8) % Lymph % (Auto) 18.2 (15.8-45.3) % [place] % (Auto) 9.2 (5.5-15.2) % Eos % (Auto) 2.8 (0.1-6.8) % Baso % (Auto) 0.7 (0.3-3.8) % Neut # (Auto) 5.8 (1.7-6.9) x10-3/uL Lymph # (Auto) 1.5 (0.5-4.5) x10-3/uL [place] # (Auto) 0.8 (0.0-1.2) x10-3/uL Eos # (Auto) 0.2 (0.0-0.6) x10-3/uL Baso # (Auto) 0.1 (0.0-0.3) x10-3/uL PT 10.2 (9.0-11.1) sec INR 0.94 L (1.00-1.24) APTT 24.7 (24.4-33.2) SECONDS Sodium 141 (135-145) mmol/L Potassium 3.9 (3.5-5.3) mmol/L Chloride 105 (100-110) mmol/L Carbon Dioxide 28 (21-32) mmol/L BUN 17 (7-18) mg/dL Creatinine 1.0 (0.70-1.30) mg/dL Est Cr Clr Drug Dosing TNP Estimated GFR (MDRD) > 60 (>60) BUN/Creatinine Ratio 17.0 (9-20) Glucose 109 (80-116) mg/dL Calcium 7.7 L (8.6-10.2) mg/dL Magnesium 1.9 (1.8-2.5) mg/dL Total Bilirubin 0.4 (0.1-1.3) mg/dL AST 27 H D (5-25) IU/L ALT 29 D (12-36) U/L Alkaline Phosphatase 70 (56-112) IU/L Total Protein 6.2 (6.0-8.0) g/dL Albumin 3.2 (3.2-4.6) g/dL Globulin 3.0 g/dL Albumin/Globulin Ratio 1.1 Lipase (73-393) U/L Ethyl Alcohol (<0.03) % SARS-CoV-2 RNA ([facility]) (NEGATIVE) Blood Type Gel Antibody Screen 10/02/20 10/02/20 10/02/20 Range/Units 18:42 18:42 18:42 WBC (3.2-10.1) x10-3/uL RBC (3.90-5.90) x10(6)uL Hgb (12.9-17.7) g/dL Hct (38.3-50.1) % MCV (80.8-98.7) fL MCH (27.0-33.3) pg MCHC (28.7-35.3) g/dL RDW (12.4-15.0) % Plt Count (117-477) x10(3)uL MPV (6.7-11.0) fL Neut % (Auto) (40.3-71.8) % Lymph % (Auto) (15.8-45.3) % [place] % (Auto) (5.5-15.2) % Eos % (Auto) (0.1-6.8) % Baso % (Auto) (0.3-3.8) % Neut # (Auto) (1.7-6.9) x10-3/uL Lymph # (Auto) (0.5-4.5) x10-3/uL [place] # (Auto) (0.0-1.2) x10-3/uL Eos # (Auto) (0.0-0.6) x10-3/uL Baso # (Auto) (0.0-0.3) x10-3/uL PT (9.0-11.1) sec INR (1.00-1.24) APTT (24.4-33.2) SECONDS Sodium (135-145) mmol/L Potassium (3.5-5.3) mmol/L Chloride (100-110) mmol/L Carbon Dioxide (21-32) mmol/L BUN (7-18) mg/dL Creatinine (0.70-1.30) mg/dL Est Cr Clr Drug Dosing Estimated GFR (MDRD) (>60) BUN/Creatinine Ratio (9-20) Glucose (80-116) mg/dL Calcium (8.6-10.2) mg/dL Magnesium (1.8-2.5) mg/dL Total Bilirubin (0.1-1.3) mg/dL AST (5-25) IU/L ALT (12-36) U/L Alkaline Phosphatase (56-112) IU/L Total Protein (6.0-8.0) g/dL Albumin (3.2-4.6) g/dL Globulin g/dL Albumin/Globulin Ratio Lipase 136 (73-393) U/L Ethyl Alcohol 0.06 H (<0.03) % SARS-CoV-2 RNA ([facility]) (NEGATIVE) Blood Type O POSITIVE Gel Antibody Screen Negative 10/02/20 Range/Units 23:55 WBC (3.2-10.1) x10-3/uL RBC (3.90-5.90) x10(6)uL Hgb (12.9-17.7) g/dL Hct (38.3-50.1) % MCV (80.8-98.7) fL MCH (27.0-33.3) pg MCHC (28.7-35.3) g/dL RDW (12.4-15.0) % Plt Count (117-477) x10(3)uL MPV (6.7-11.0) fL Neut % (Auto) (40.3-71.8) % Lymph % (Auto) (15.8-45.3) % [place] % (Auto) (5.5-15.2) % Eos % (Auto) (0.1-6.8) % Baso % (Auto) (0.3-3.8) % Neut # (Auto) (1.7-6.9) x10-3/uL Lymph # (Auto) (0.5-4.5) x10-3/uL [place] # (Auto) (0.0-1.2) x10-3/uL Eos # (Auto) (0.0-0.6) x10-3/uL Baso # (Auto) (0.0-0.3) x10-3/uL PT (9.0-11.1) sec INR (1.00-1.24) APTT (24.4-33.2) SECONDS Sodium (135-145) mmol/L Potassium (3.5-5.3) mmol/L Chloride (100-110) mmol/L Carbon Dioxide (21-32) mmol/L BUN (7-18) mg/dL Creatinine (0.70-1.30) mg/dL Est Cr Clr Drug Dosing Estimated GFR (MDRD) (>60) BUN/Creatinine Ratio (9-20) Glucose (80-116) mg/dL Calcium (8.6-10.2) mg/dL Magnesium (1.8-2.5) mg/dL Total Bilirubin (0.1-1.3) mg/dL AST (5-25) IU/L ALT (12-36) U/L Alkaline Phosphatase (56-112) IU/L Total Protein (6.0-8.0) g/dL Albumin (3.2-4.6) g/dL Globulin g/dL Albumin/Globulin Ratio Lipase (73-393) U/L Ethyl Alcohol (<0.03) % SARS-CoV-2 RNA ([facility]) Negative (NEGATIVE) Blood Type Gel Antibody Screen Meds: Medications Generic Name Dose Route Start Last Admin Trade Name Justo PRN Reason Stop Dose Admin Sodium Chloride 1,000 mls @ 125 mls/hr 10/02/20 18:45 10/02/20 19:20 Normal Saline IV 125 mls/hr ASDIRECTED ANDREI Administration Sodium Chloride 10 ml 10/02/20 18:37 Sodium Chloride 0.9% 10 Ml Syringe FLUSH ASDIRECTED PRN Keep Vein Open Discontinued Medications Generic Name Dose Route Start Last Admin Trade Name Justo PRN Reason Stop Dose Admin Cefazolin Sodium 1 gm 10/02/20 23:39 10/03/20 00:07 Cefazolin 1 Gm Vial IVPUSH 10/02/20 23:40 1 gm ONETIME ONE Administration Diphtheria/Tetanus/Acell Pertussis 0.5 ml 10/02/20 18:37 Diphtheria,Pertussis(Acell),Tetanus Vaccine 0.5 Ml Syringe IM 10/02/20 18:38 .ONCE ONE Hydromorphone HCl 0.5 mg 10/02/20 18:37 10/02/20 18:52 Hydromorphone 2 Mg/Ml Sdv IVPUSH 10/02/20 18:38 0.5 mg ONETIME ONE Administration Hydromorphone HCl 1 mg 10/02/20 19:08 10/02/20 19:20 Hydromorphone 2 Mg/Ml Sdv IVPUSH 10/02/20 19:09 1 mg ONETIME ONE Administration Hydromorphone HCl 1 mg 10/02/20 21:27 Hydromorphone 2 Mg/Ml Sdv IVPUSH 10/02/20 21:28 ONETIME ONE Hydromorphone HCl 0.5 mg 10/02/20 23:13 10/02/20 23:23 Hydromorphone 2 Mg/Ml Sdv IVPUSH 10/02/20 23:14 0.5 mg ONETIME ONE Administration Sodium Chloride 500 mls @ 999 mls/hr 10/02/20 18:37 10/02/20 18:52 Normal Saline IV 10/02/20 19:07 999 mls/hr .BOLUS ONE Administration Sodium Chloride 500 mls @ 999 mls/hr 10/03/20 00:06 10/03/20 00:11 Normal Saline IV 10/03/20 00:36 999 mls/hr .BOLUS ONE Administration Iopamidol 100 ml 10/02/20 19:41 10/02/20 21:54 Iopamidol 755 Mg/Ml 100 Ml Bottle IV 10/02/20 19:42 75 ml . DIRECTED ONE Administration Iopamidol 75 ml 10/02/20 21:52 10/02/20 21:56 Iopamidol 755 Mg/Ml 75 Ml Bottle IV 10/02/20 21:53 60 ml ASDIRECTED ONE Administration Ondansetron HCl 4 mg 10/02/20 18:37 10/02/20 18:52 Ondansetron 4 Mg/2 Ml Sdv IVPUSH 10/02/20 18:38 4 mg ONETIME ONE Administration - Radiology Interpretation Free Text/Narrative:: Portable chest x-ray showed no pneumothorax or hemothorax. There was no definite rib fracture. Left femur x-ray showed no definite fracture. CT scan of the head showed acute abnormality per the [facility] radiologist. CT scan of the cervical spine showed degenerative changes but no acute fracture or malalignment per the [facility] radiologist. CT scan of the chest, abdomen and pelvis showed multiple spiculated nodules in the upper lobes. There was also a comminuted and displaced left scapular fracture. There was no traumatic abnormality in the abdomen or pelvis. - Re-Assessments/Exams Free Text/Narrative Re-Assessment/Exam: 10/02/20 18:25: Patient with fairly severe pain. He is in no respiratory distress. He is alert, appropriate and answers questions appropriately. He does look somewhat pale. His blood pressure and pulse are normal. I will give the patient Dilaudid 0.5 mg IV for his pain. He is chronically on oxycodone and apparently took 2 oxycodone of hours prior to coming in. He states he also drank several beers prior to coming in. 10/02/20 19:00: The patient is still complaining of severe pain. His hemoglobin was 12.0. His platelet count was 322K. his INR was normal. His serum electrolyte profile is normal. His BUN is 17 and his creatinine is 1.0. His LFTs are normal. His alcohol level was 0.06. A portable chest x-ray showed no hemo-or pneumothorax. I have also ordered CT scans of the patient's head, neck, chest, abdomen and pelvis. Patient remained hemodynamically stable. He also remains neurologically stable. I have ordered 1 mg of Dilaudid to be given IV. We will continue to watch the patient closely. 10/02/20 21:25: The patient continues to complain of severe pain. He has been over for his CT scans but results are not back as yet. The patient remains hemodynamically and neurologically stable. I will give the patient another 1 mg of Dilaudid IV. I am awaiting the results of the CT scan but the patient is having severe pain he has chronic COPD that is oxygen dependent and I am having a difficult time getting control of his pain. I feel that he will need admission. At this point, we do not have surgery backup and for that reason we could not admit him to our hospital. In addition, there are no beds available at [facility]. I have discussed this with the patient and he tells me that he is followed through [facility] in [place]. I will be calling in discussing his case with them once I get results back. 10/02/20 23:10: The patient's son and [id number] are now here. The patient has remained hemodynamically stable. The CT scans of his head, neck, chest, abdomen and pelvis have come back and he does have a comminuted and displaced left scapular fracture but really there are no other acute or traumatic abnormalities noted. He is still complaining of pain in his left thigh and I will order a femur x-ray. X-rays and laboratory findings with the patient and with his son and [id number]. I have expressed to them that the patient will need admission and would need transfer to [facility]. They would be in agreement with this plan. I will now suture the patient's left posterior thigh wound. 10/02/20 23:45: I discussed the patient's case with Dr. Carter, emergency physician at [facility] in [place], and he has agreed to accept the patient in transfer. The patient's left femur x-ray showed no fracture but there was some air tracking along the muscles. This represents the patient's injury I did not find any foreign body but there were numerous clots and I had to be irrigated copiously. He did tolerate this well and there were no complications. The patient will need to be transferred via [facility] ambulance service to [facility] for direct admission. I have also ordered another 0.5 mg of Dilaudid to be given IV as the patient's pain is coming back. 10/03/20 00:47: Ambulance service is here to transport the patient. He remains hemodynamically and neurologically stable. He has, however, had a decrease in his blood pressure to 90 systolic with a pulse rate in the 100-110 range. He does not have any evidence of ongoing hemorrhage. I have given the patient another 500 mL bolus of normal saline. At the patient's request, I will also call and discuss this with his . 10/03/20 00:53: I was unable to get in touch with the patient's and therefo re with the patient's permission, I did call and give all of this information to his son. The patient received another 500 mL bolus of normal saline prior to transfer and he also received Ancef 1 g IV. Departure - Departure Time of Disposition: 00:50 Disposition: DC/Tfer to Acute Hospital 02 Condition: Fair Clinical Impression: Uncontrolled pain, Hypovolemia Fall down stairs Qualifiers: Encounter type: initial encounter Qualified Code(s): W10.8XXA - Fall (on) (from) other stairs and steps, initial encounter Closed head injury Qualifiers: Encounter type: initial encounter Qualified Code(s): S09.90XA - Unspecified injury of head, initial encounter Head contusion Qualifiers: Encounter type: initial encounter Contusion of head detail: scalp Qualified Code(s): S00.03XA - Contusion of scalp, initial encounter Occipital scalp laceration Qualifiers: Encounter type: initial encounter Qualified Code(s): S01.01XA - Laceration without foreign body of scalp, initial encounter Laceration of left thigh Qualifiers: Encounter type: initial encounter Qualified Code(s): S71.112A - Laceration without foreign body, left thigh, initial encounter Closed left scapular fracture Qualifiers: Encounter type: initial encounter Scapula location: body Fracture alignment: displaced Qualified Code(s): S42.112A - Displaced fracture of body of scapula, left shoulder, initial encounter for closed fracture - Discharge Information Referrals: Robe Mims MD [Primary Care Provider] - Sepsis Event Note (ED) - Focused Exam Vital Signs: Vital Signs Temp Pulse Resp BP Pulse Ox 10/02/20 18:01 36.7 C 95 20 135/76 94 L - My Orders Last 24 Hours: My Active Orders 10/02/20 18:37 Chest 1V Frontal [CR] Stat Sodium Chloride 0.9% [Saline Flush] 10 ml FLUSH ASDIRECTED PRN Peripheral IV Insertion Adult [OM.PC] Routine 10/02/20 18:39 Vaccines to be Administered [RC] PER UNIT ROUTINE Cervical Spine wo Cont [CT] Stat Chest Abdomen Pelvis w Cont [CT] Stat Head wo Cont [CT] Stat 10/02/20 18:42 EKG Documentation Completion [RC] ASDIRECTED EKG 12 Lead [EK] Routine 10/02/20 18:45 Sodium Chloride 0.9% [Normal Saline] 1,000 ml IV ASDIRECTED 10/02/20 23:02 Femur Min 2V Lt [CR] Stat - Assessment/Plan Last 24 Hours: My Active Orders 10/02/20 18:37 Chest 1V Frontal [CR] Stat Sodium Chloride 0.9% [Saline Flush] 10 ml FLUSH ASDIRECTED PRN Peripheral IV Insertion Adult [OM.PC] Routine 10/02/20 18:39 Vaccines to be Administered [RC] PER UNIT ROUTINE Cervical Spine wo Cont [CT] Stat Chest Abdomen Pelvis w Cont [CT] Stat Head wo Cont [CT] Stat 10/02/20 18:42 EKG Documentation Completion [RC] ASDIRECTED EKG 12 Lead [EK] Routine 10/02/20 18:45 Sodium Chloride 0.9% [Normal Saline] 1,000 ml IV ASDIRECTED 10/02/20 23:02 Femur Min 2V Lt [CR] Stat
[2020-10-02] MEDS ORDERED: Ondansetron 4 MG/2 ML SDV IVPUSH ONE (18:37)
[2020-10-02] MEDS ORDERED: Sodium Chloride 0.9% 500 ML IV ONE (18:37)
[2020-10-02] MEDS ORDERED: Sodium Chloride 0.9% 10 ML Syringe FLUSH PRN (18:37)
[2020-10-02] MEDS ORDERED: Diphtheria,Pertussis(Acell),Tetanus Vaccine 0.5 ML Syringe IM ONE (18:37)
[2020-10-02] MEDS ORDERED: HYDROmorphone 2 MG/ML SDV IVPUSH ONE ×4 (18:37→23:13)
[2020-10-02] MEDS ORDERED: Sodium Chloride 0.9% 1,000 ML IV SCH (18:45)
[2020-10-02] MEDS ORDERED: Iopamidol 755 Mg/ML 100 ML Bottle IV ONE (19:41)
[2020-10-02 21:17] VITALS: BP 135/76; PULSE 95
[2020-10-02] MEDS: Iopamidol 755 Mg/ML 75 ML Bottle IV ONE ×2 (21:55→21:56)
[2020-10-02] MEDS ORDERED: ceFAZolin 1 GM Vial IVPUSH ONE (23:39)
[2020-10-03] MEDS ORDERED: Sodium Chloride 0.9% 500 ML IV ONE (00:06)
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
--- NOTE | 2020-10-03 16:57 | CR ---
INDICATION: Fall with injury. LEFT FEMUR: Four views of the left femur were obtained portable 10/02/20 and compared with pelvis and left hip dated 03/16/16. There is appearance suggesting subcutaneous emphysema in the thigh. Minimal degenerative changes are noted at the patellofemoral joint with no other significant degenerative changes, fracture, or dislocation identified. If symptoms persist - if occult fracture site is suspected clinically, reexamination is recommended for further evaluation. MTDD
== END 2020-10-03 00:50 ==
LOC: FB.ED 18:01
DX: S42.112A Displaced fracture of body of scapula, left shoulder, initial encounter for closed fracture (principal); S01.01XA Laceration without foreign body of scalp, initial encounter; S71.112A Laceration without foreign body, left thigh, initial encounter; E86.1 Hypovolemia; E78.00 Pure hypercholesterolemia, unspecified; I10 Essential (primary) hypertension; J44.9 Chronic obstructive pulmonary disease, unspecified; Z87.891 Personal history of nicotine dependence; Z88.5 Allergy status to narcotic agent; Z88.0 Allergy status to penicillin; Z23 Encounter for immunization; Z20.822 Contact with and (suspected) exposure to COVID-19; W10.9XXA Fall (on) (from) unspecified stairs and steps, initial encounter; Z79.899 Other long term (current) drug therapy
CPT/HCPCS: 12004; 36415; 70450; 71045; 71260; 72125; 73552-LT; 74177; 80053; 80307; 83690; 83735; 85025; 85610; 85730; 86850; 86900; 86901; 90471; 90715; 93005; 93010; 96374; 96375; 96376; 99285; 99285-25; J0690; J1170; J2405; J7030; J7040; Q9967; U0002

== ENCOUNTER 2021-07-26 13:12 | Emergency (ER) | payer MEDICARE, OTHER ==
[2021-07-26] MEDS ORDERED: Albuterol/Ipratropium 3.0-0.5 MG/3 ML Neb Soln NEB ONE (13:36)
[2021-07-26] MEDS ORDERED: methylPREDNISolone Sodium Succinate 125 MG/2 ML SDV IM ONE (13:36)
[2021-07-26 13:45] VITALS: BP 132/63; PULSE 90
== END 2021-07-26 14:44 | disposition home or self-care (01) ==
LOC: FB.ED 13:12
DX: C34.90 Malignant neoplasm of unspecified part of unspecified bronchus or lung (principal); J18.9 Pneumonia, unspecified organism; J43.9 Emphysema, unspecified; E78.00 Pure hypercholesterolemia, unspecified; I10 Essential (primary) hypertension; K21.9 Gastro-esophageal reflux disease without esophagitis; Z88.0 Allergy status to penicillin; Z88.8 Allergy status to other drugs, medicaments and biological substances; Z79.899 Other long term (current) drug therapy
CPT/HCPCS: 71045; 94640; 96372; 99284; 99284-25; J2930; J7620